=== PATIENT | female | born 1945 | race African-American/Black ===

== ENCOUNTER 2017-01-14 06:21 | Inpatient (IN) | payer OTHER ==
[~2017-01-14] VITALS: Ht 165.1 cm; Wt 97.5 kg
[2017-01-14 06:52] LABS: BASO # 0.1 x10^3/uL (0.0-0.2); BASO % 1 % (0-3); EOS % 1 % (0-3); HEMATOCRIT 38.4 % (36.0-47.0); HEMOGLOBIN 12.2 g/dL (12.0-15.5); LYMPH # 1.9 x10^3/uL (1.0-4.8); LYMPH % 26 % (24-48); MEAN CORPUSCULAR HEMOGLOBIN 23 pg (25-35); MEAN CORPUSCULAR HGB CONC 32 g/dL (31-37); MEAN CORPUSCULAR VOLUME 71 fL (79-100); MONO % 9 % (0-9); NEUT % 63 % (31-73); PLATELET COUNT 248 x10^3/uL (140-400); RED BLOOD COUNT 5.43 x10^6/uL (3.50-5.40); RED CELL DISTRIBUTION WIDTH 15.8 % (11.5-14.5); WHITE BLOOD COUNT 7.1 x10^3/uL (4.0-11.0)
--- NOTE | 2017-01-14 06:57 | PHYS DOC ---
Past Medical History Past Medical History: Diabetes-Type II, Hypertension Past Surgical History: Hysterectomy, Knee Replacement Alcohol Use: None Drug Use: None Adult General Chief Complaint Chief Complaint: LOWER EXT PAIN HPI HPI Patient is a 71 year old female who presents with left leg weakness. Patient reports she has several month history of chronic left leg weakness of uncertain etiology causing her to drag her leg, but she is usually able to ambulate with a cane. This morning she states her leg "gave out" about an hour before she presented here. She fell to the ground on her left side without any head trauma or loss of consciousness, has been unable to bear weight on her left leg since that time. She reports mild chronic left lateral hip pain but not significantly increased since the fall. Now she is unable to bear weight on her left leg, believes the weakness is more severe than usual. She thinks the weakness was at baseline at the time she awoke this morning. She denies any vision changes, facial numbness or droop, upper extremity numbness/weakness, lower extremity numbness. History of diabetes & diabetic neuropathy, denies CAD or CVA. PCP is Dr. Day & she has seen him in the past regarding leg weakness. Review of Systems Review of Systems Constitutional: Denies fever or chills Eyes: Denies change in visual acuity HENT: Denies nasal congestion or sore throat Respiratory: Denies cough or shortness of breath Cardiovascular: Denies chest pain or edema GI: Denies abdominal pain, nausea, vomiting : Denies dysuria Musculoskeletal: Reports chronic L hip pain Integument: Denies rash or skin lesions Neurologic: Denies headache, reports LLE weakness without numbness Current Medications Current Medications Current Medications Medications (Trade) Dose Ordered Sig/Andre Start Time Stop Time Status Last Admin Dose Admin Acetaminophen (Tylenol) 650 mg PRN Q4HRS PRN 01/14/17 08:00 01/15/17 07:59 UNV Morphine Sulfate 2 mg PRN Q2HR PRN 01/14/17 08:00 01/15/17 07:59 UNV Ondansetron HCl (Zofran) 4 mg PRN Q8HRS PRN 01/14/17 08:00 01/15/17 07:59 UNV Allergies Allergies Allergies Coded Allergies Type Severity Reaction Last Updated Verified No Known Drug Allergies 07/25/15 No Physical Exam Physical Exam Constitutional: obese, no acute distress, non-toxic appearance. HENT: Normocephalic, atraumatic, bilateral external ears normal, oropharynx moist, nose normal. Eyes: PERRLA, EOMI, conjunctiva normal, no discharge. Neck: supple, no stridor. Cardiovascular: RRR, no murmurs, no edema. Lungs & Thorax: LCTAB, no wheezing, no respiratory distress. Abdomen: soft, nontender, nondistended. no pulsatile mass. Skin: Warm, dry, no erythema, no rash. Back: No focal bony tenderness. Extremities: L hip, knee, ankle no swelling or deformity, no focal bony tenderness with palpation of hip, knee, ankle. passive ROM intact to hip & knee but has difficulty with active ROM. unable to straight leg raise. dp/pt 2 +, sensation to light touch is intact to foot. RLE normal strength & sensation. Neurologic: Alert and oriented X 3, CN2-12 grossly intact, symmetric strength/ sensation to UE, LE exam as above, intact finger to nose, R heel to L jones intact, unable to demonstrate L heel to R jones. Psychologic: Affect normal, judgement normal, mood normal. Current Patient Data Vital Signs Vital Signs Date Time Temp Pulse Resp B/P Pulse Ox O2 Delivery O2 Flow Rate FiO2 01/14/17 06:23 98.0 91 18 199/104 96 Room Air 98.0 Lab Values Laboratory Tests Test 01/14/17 06:30 White Blood Count 7.1x10^3/uL (4.0-11.0) Red Blood Count 5.43x10^6/uL (3.50-5.40) H Hemoglobin 12.2g/dL (12.0-15.5) Hematocrit 38.4% (36.0-47.0) Mean Corpuscular Volume 71fL (79-100) L Mean Corpuscular Hemoglobin 23pg (25-35) L Mean Corpuscular Hemoglobin Concent 32g/dL (31-37) Red Cell Distribution Width 15.8% (11.5-14.5) H Platelet Count 248x10^3/uL (140-400) Neutrophils (%) (Auto) 63% (31-73) Lymphocytes (%) (Auto) 26% (24-48) Monocytes (%) (Auto) 9% (0-9) Eosinophils (%) (Auto) 1% (0-3) Basophils (%) (Auto) 1% (0-3) Neutrophils # (Auto) 4.5x10^3uL (1.8-7.7) Lymphocytes # (Auto) 1.9x10^3/uL (1.0-4.8) Monocytes # (Auto) 0.6x10^3/uL (0.0-1.1) Eosinophils # (Auto) 0.1x10^3/uL (0.0-0.7) Basophils # (Auto) 0.1x10^3/uL (0.0-0.2) Platelet Estimate Adequate (ADEQUATE) Large Platelets Few Hypochromasia Mod Anisocytosis Slight Microcytosis Mod Prothrombin Time 13.7SEC (11.7-14.0) Prothrombin Time INR 1.1 (0.8-1.1) PTT 26SEC (24-38) Sodium Level 144mmol/L (136-145) Potassium Level 3.4mmol/L (3.5-5.1) L Chloride Level 106mmol/L (98-107) Carbon Dioxide Level 26mmol/L (21-32) Anion Gap 12 (6-14) Blood Urea Nitrogen 11mg/dL (7-20) Creatinine 0.7mg/dL (0.6-1.0) Estimated GFR (Cockcroft-Gault) 100.1 BUN/Creatinine Ratio 16 (6-20) Glucose Level 219mg/dL (70-99) H Calcium Level 9.6mg/dL (8.5-10.1) Total Bilirubin 0.4mg/dL (0.2-1.0) Aspartate Amino Transferase (AST) 22U/L (15-37) Alanine Aminotransferase (ALT) 29U/L (14-59) Alkaline Phosphatase 97U/L (46-116) Troponin I Quantitative < 0.017ng/mL (0.000-0.055) Total Protein 7.7g/dL (6.4-8.2) Albumin 3.6g/dL (3.4-5.0) Albumin/Globulin Ratio 0.9 (1.0-1.7) L Laboratory Tests 01/14/17 06:30 Laboratory Tests 01/14/17 06:30 EKG EKG interpreted by me: NSR rate 78, no acute ST/T wave changes, normal intervals, no ectopy.[] Radiology/Procedures Radiology/Procedures PROCEDURE: HIP LEFT 2V WITH PELVIS Pelvis with left hip, 3 views, 01/14/2017: History: Fall, pain No acute fracture or dislocation is identified. There is mild spurring at the hip joints. There are mild degenerative changes at the symphysis pubis and sacroiliac joints. Scattered vascular calcifications are evident. IMPRESSION: No acute bony abnormality is detected. DICTATED and SIGNED BY: JEANNIE AMEZCUA MD DATE: 01/14/17719 PROCEDURE: HEAD WO CONTRAST CT of the head without contrast, 01/14/2017: History: Left leg weakness The ventricles are within normal limits in size. There is no shift of the midline structures. There is no evidence of acute intracranial hemorrhage or mass effect. Minimal basal ganglia calcifications are present. IMPRESSION: No acute intracranial abnormality is detected. PQRS Compliance Statement: One or more of the following individualized dose reduction techniques were utilized for this examination: 1. Automated exposure control 2. Adjustment of the mA and/or kV according to patient size 3. Use of iterative reconstruction technique DICTATED and SIGNED BY: JEANNIE AMEZCUA MD DATE: 01/14/17717[] Course & Med Decision Making Course & Med Decision Making Pertinent Labs and Imaging studies reviewed. (See chart for details) Patient presents with left lower extremity weakness. She is a poor historian and the time of symptom onset is difficult to elicit, as is the degree of change from her baseline weakness. There certainly are objective findings of weakness on exam. Not activated as code stroke as it is not clear whether this is actually a new finding. However CT of the head was obtained which was without any acute changes. Due to possibly chronic nature of the complaint and uncertain time of onset of symptoms, TPA is not indicated. X-ray shows no evidence of bony abnormality. Consulted with Dr. Shahram Day who agreed to admit the patient due to her inability to bear weight or ambulate independently. Recommends rehabilitation consult to Dr. Price which has been placed. Additionally we'll give aspirin [address] Peters of neurology. Patient agrees with plan, admitted in stable condition. Dragon Disclaimer Dragon Disclaimer This electronic medical record was generated, in whole or in part, using a voice recognition dictation system. Departure Departure Impression: Primary Impression: Lower extremity weakness Additional Impressions: Hyperglycemia Hypertension Disposition: 09 ADMITTED INPATIENT Admitting Physician: Shahram Day Condition: STABLE Referrals: SHAHRAM DAY MD (PCP) Problem Qualifiers DANNY BURNETTE MD Jan 14, 2017 06:57
[2017-01-14 07:17] LABS: INR 1.1 (0.8-1.1); PROTHROMBIN TIME PATIENT 13.7 SEC (11.7-14.0)
--- NOTE | 2017-01-14 07:23 | RAD ---
CT of the head without contrast, 01/14/2017: History: Left leg weakness The ventricles are within normal limits in size. There is no shift of the midline structures. There is no evidence of acute intracranial hemorrhage or mass effect. Minimal basal ganglia calcifications are present. IMPRESSION: No acute intracranial abnormality is detected. PQRS Compliance Statement: One or more of the following individualized dose reduction techniques were utilized for this examination: 1. Automated exposure control 2. Adjustment of the mA and/or kV according to patient size 3. Use of iterative reconstruction technique
--- NOTE | 2017-01-14 07:24 | RAD ---
Pelvis with left hip, 3 views, 01/14/2017: History: Fall, pain No acute fracture or dislocation is identified. There is mild spurring at the hip joints. There are mild degenerative changes at the symphysis pubis and sacroiliac joints. Scattered vascular calcifications are evident. IMPRESSION: No acute bony abnormality is detected.
[2017-01-14 07:43] LABS: CALCIUM 9.6 mg/dL (8.5-10.1); CREATININE 0.7 mg/dL (0.6-1.0); GFR 100.1; POTASSIUM 3.4 mmol/L (3.5-5.1)
[2017-01-14 07:49] LABS: ALBUMIN 3.6 g/dL (3.4-5.0); ALBUMIN/GLOBULIN RATIO 0.9 (1.0-1.7); TOTAL BILIRUBIN 0.4 mg/dL (0.2-1.0); TOTAL PROTEIN 7.7 g/dL (6.4-8.2)
[2017-01-14 07:52] LABS: ANISOCYTOSIS SLIGHT; HYPOCHROMIA MOD; MICROCYTOSIS MOD; PLT ESTIMATE ADEQUATE (ADEQUATE)
[2017-01-14] MEDS ORDERED: MORPHINE SULFATE 2 MG/ML DISP.SYRIN. IV PRN ×2 (08:00→08:45)
[2017-01-14] MEDS ORDERED: ASPIRIN 325 MG TABLET PO ONE (08:00)
[2017-01-14] MEDS ORDERED: ONDANSETRON PF 4 MG/2 ML VIAL. IV PRN ×2 (08:00→08:45)
[2017-01-14] MEDS ORDERED: ACETAMINOPHEN 325 MG TABLET. PO PRN (08:00)
--- NOTE | 2017-01-14 08:04 | EKG ---
[facility] [address] [place] [address] Test Date: 2017-01-14 Test Time: 06:43:27 Pat Name: AMIRAH OSBORNE Department: Room: [facility] Gender: F Water Treatment Operator: : 1945 Requested By: DANNY BURNETTE Order Number: [id number] Reading MD: Nanda Rodriguez Measurements Intervals [place] Rate: 78 P: 48 VT: 186 QRS: -3 QRSD: 84 T: 10 QT: 402 QTc: 462 Interpretive Statements SINUS RHYTHM LEFTWARD AXIS NO SPECIFIC ECG ABNORMALITIES RI6.01 No previous ECG available for comparison Electronically Signed On 01-14-2017 20:59:11 CDT by Nanda Rodriguez
[2017-01-14] MEDS ORDERED: ACETAMINOPHEN 650 MG/20.3 ML SOLUTION. PEG PRN (08:45)
[2017-01-14] MEDS ORDERED: hydrALAZINE 20 MG/ML VIAL. IVP PRN (08:45)
[2017-01-14] MEDS ORDERED: HYDROCODONE/APAP 5/325MG TABLET. PO PRN (08:45)
[2017-01-14] MEDS ORDERED: POTASSIUM CHLORIDE 20 MEQ TABLET.ER. PO ONE (08:45)
[2017-01-14 09:10] VITALS: BP 207/84
--- NOTE | 2017-01-14 09:40 | PDOC ---
Provider Note Provider Note The patient was seen and examined by me. Chart reviewed and plan of care formulated. 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 H&p to follow. D/w patient and family.Advised to lose wt. D/w - possible lumbar spinal stenosis- order MRI of LS spine. SHAHRAM POLO MD Jan 14, 2017 09:40
--- NOTE | 2017-01-14 09:42 | PDOC1 ---
HISTORY AND PHYSICAL Chief Complaint Chief Complaint This 71 year old Amercian female has been admitted with a chief complaint of fall. She reports she was leaving for work and her L leg gave out resulting in fall. The fall was outside in the yard. She developed L hip pain after the fall. She did not impact her head or lose consciousness. In the ED her BP was 199/104 on admission, Xray L hip negative fracture, and CT head negative. Serum potassium was 3.4. ASA 325mg given in ED. Glucose was 209. She is admitted for further evaluation and treatment. Problem List Problems Medical Problems: (1) Hyperglycemia Status: Acute (2) Hypertension Status: Acute (3) Lower extremity weakness Status: Acute (4) Lower extremity weakness Status: Acute Past Medical History Cardiovascular: HTN, Hyperlipidemia GI: Diverticulosis Musculoskeletal: low back pain (DDD ) Endocrine: Diabetes (Type II non insulin control with neuropathy intolerant to gabapentin. ) Past Surgical History Past Surgical History: Total knee replacement, Hysterectomy Past Family History Family History: Cancer (Father - lung. Mother - colon. ), Hypertension (Sister ) Past Social History PSH , with supportive family. Negative tobacco, ETOH or illicit drug use. Review of Symptoms Review of Symptoms A 14 point ROS was completed with the following noted as positive: per HPI Other systems reviewed and negative. Medications Current Medications Acetaminophen (Tylenol) 650 mg PRN Q4HRS PRN PO FEVER; Start 01/14/17 at 08:00 ; Stop 01/14/17 at 08:44; Status DC Acetaminophen (Tylenol) 650 mg PRN Q6HRS PRN PEG MILD PAIN / TEMP; Start at 08:45 Acetaminophen/ Hydrocodone Bitart (Lortab 5/325) 1 tab PRN Q6HRS PRN PO PAIN; Start 01/14/17 at 08:45 Aspirin (Linette Aspirin) 325 mg 1X ONCE PO Last administered on 01/14/17t 08:34 ; Start 01/14/17 at 08:00; Stop 01/14/17 at 08:01; Status DC Aspirin (Children'S Aspirin) 81 mg DAILYWBKFT PO ; Start 01/15/17 at 08:00 Hydralazine HCl (Apresoline) 10 mg PRN Q4HRS PRN IVP ELEVATED BP, SEE COMMENTS ; Start 01/14/17 at 08:45 Morphine Sulfate 2 mg PRN Q2HR PRN IV PAIN; Start 01/14/17 at 08:00; Stop 01/14 at 08:44; Status DC Morphine Sulfate 2 mg PRN Q2HR PRN IV PAIN; Start 01/14/17 at 08:45 Ondansetron HCl (Zofran) 4 mg PRN Q8HRS PRN IV NAUSEA/VOMITING; Start 01/14/17 at 08:00; Stop 01/14/17 at 08:44; Status DC Ondansetron HCl (Zofran) 4 mg PRN Q8HRS PRN IV NAUSEA/VOMITING; Start 01/14/17 at 08:45 Potassium Chloride (Klor-Con) 20 meq 1X ONCE PO ; Start 01/14/17 at 08:45; Stop 01/14/17 at 08:46; Status DC Allergy Allergies Coded Allergies Type Severity Reaction Last Updated Verified No Known Drug Allergies 07/25/15 No Physical Exam Physical Exam General appearance - alert,well appearing, and in no distress Mental Status - alert, oriented to person, place, and time, affect appropriate to mood Head - normal Chest - clear to auscultation, no wheezes, rales or rhonchi, symmetric air entry Heart - S1 and S2 normal Abdomen - soft, nontender, nondistended, no masses or organomegaly Neurological -no acute focal neurological deficit noted. Musculoskeletal - tender lumbar spine and L hip Extremities - no pedal edema Skin - warm and dry VTE Prophylaxis Ordered VTE Prophylaxis Devices: Yes VTE Pharmacological Prophylaxi: No Assessment Labs Laboratory Tests Test 01/14/17 06:30 White Blood Count 7.1x10^3/uL (4.0-11.0) Red Blood Count 5.43x10^6/uL (3.50-5.40) Hemoglobin 12.2g/dL (12.0-15.5) Hematocrit 38.4% (36.0-47.0) Mean Corpuscular Volume 71fL (79-100) Mean Corpuscular Hemoglobin 23pg (25-35) Mean Corpuscular Hemoglobin Concent 32g/dL (31-37) Red Cell Distribution Width 15.8% (11.5-14.5) Platelet Count 248x10^3/uL (140-400) Neutrophils (%) (Auto) 63% (31-73) Lymphocytes (%) (Auto) 26% (24-48) Monocytes (%) (Auto) 9% (0-9) Eosinophils (%) (Auto) 1% (0-3) Basophils (%) (Auto) 1% (0-3) Neutrophils # (Auto) 4.5x10^3uL (1.8-7.7) Lymphocytes # (Auto) 1.9x10^3/uL (1.0-4.8) Monocytes # (Auto) 0.6x10^3/uL (0.0-1.1) Eosinophils # (Auto) 0.1x10^3/uL (0.0-0.7) Basophils # (Auto) 0.1x10^3/uL (0.0-0.2) Platelet Estimate Adequate (ADEQUATE) Large Platelets Few Hypochromasia Mod Anisocytosis Slight Microcytosis Mod Prothrombin Time 13.7SEC (11.7-14.0) Prothromb Time International Ratio 1.1 (0.8-1.1) Activated Partial Thromboplast Time 26SEC (24-38) Sodium Level 144mmol/L (136-145) Potassium Level 3.4mmol/L (3.5-5.1) Chloride Level 106mmol/L (98-107) Carbon Dioxide Level 26mmol/L (21-32) Anion Gap 12 (6-14) Blood Urea Nitrogen 11mg/dL (7-20) Creatinine 0.7mg/dL (0.6-1.0) Estimated GFR (Cockcroft-Gault) 100.1 BUN/Creatinine Ratio 16 (6-20) Glucose Level 219mg/dL (70-99) Calcium Level 9.6mg/dL (8.5-10.1) Total Bilirubin 0.4mg/dL (0.2-1.0) Aspartate Amino Transf (AST/SGOT) 22U/L (15-37) Alanine Aminotransferase (ALT/SGPT) 29U/L (14-59) Alkaline Phosphatase 97U/L (46-116) Troponin I Quantitative < 0.017ng/mL (0.000-0.055) Total Protein 7.7g/dL (6.4-8.2) Albumin 3.6g/dL (3.4-5.0) Albumin/Globulin Ratio 0.9 (1.0-1.7) Laboratory Tests Test 01/14/17 06:30 White Blood Count 7.1x10^3/uL (4.0-11.0) Red Blood Count 5.43x10^6/uL (3.50-5.40) Hemoglobin 12.2g/dL (12.0-15.5) Hematocrit 38.4% (36.0-47.0) Mean Corpuscular Volume 71fL (79-100) Mean Corpuscular Hemoglobin 23pg (25-35) Mean Corpuscular Hemoglobin Concent 32g/dL (31-37) Red Cell Distribution Width 15.8% (11.5-14.5) Platelet Count 248x10^3/uL (140-400) Neutrophils (%) (Auto) 63% (31-73) Lymphocytes (%) (Auto) 26% (24-48) Monocytes (%) (Auto) 9% (0-9) Eosinophils (%) (Auto) 1% (0-3) Basophils (%) (Auto) 1% (0-3) Neutrophils # (Auto) 4.5x10^3uL (1.8-7.7) Lymphocytes # (Auto) 1.9x10^3/uL (1.0-4.8) Monocytes # (Auto) 0.6x10^3/uL (0.0-1.1) Eosinophils # (Auto) 0.1x10^3/uL (0.0-0.7) Basophils # (Auto) 0.1x10^3/uL (0.0-0.2) Platelet Estimate Adequate (ADEQUATE) Large Platelets Few Hypochromasia Mod Anisocytosis Slight Microcytosis Mod Prothrombin Time 13.7SEC (11.7-14.0) Prothromb Time International Ratio 1.1 (0.8-1.1) Activated Partial Thromboplast Time 26SEC (24-38) Sodium Level 144mmol/L (136-145) Potassium Level 3.4mmol/L (3.5-5.1) Chloride Level 106mmol/L (98-107) Carbon Dioxide Level 26mmol/L (21-32) Anion Gap 12 (6-14) Blood Urea Nitrogen 11mg/dL (7-20) Creatinine 0.7mg/dL (0.6-1.0) Estimated GFR (Cockcroft-Gault) 100.1 BUN/Creatinine Ratio 16 (6-20) Glucose Level 219mg/dL (70-99) Calcium Level 9.6mg/dL (8.5-10.1) Total Bilirubin 0.4mg/dL (0.2-1.0) Aspartate Amino Transf (AST/SGOT) 22U/L (15-37) Alanine Aminotransferase (ALT/SGPT) 29U/L (14-59) Alkaline Phosphatase 97U/L (46-116) Troponin I Quantitative < 0.017ng/mL (0.000-0.055) Total Protein 7.7g/dL (6.4-8.2) Albumin 3.6g/dL (3.4-5.0) Albumin/Globulin Ratio 0.9 (1.0-1.7) Plan Plan IMPRESSION: 1. L hip pain post fall on home property 2. L lower leg instability with ambulation 3. malignant HTN 4. 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 diverticulosis 7. hypokalemia PLAN: LLE weakness/instability neuro consult Dr. Price consult PT OT CT head negative malignant HTN resume home meds Hydralazine 10mg IV prn SBP >180 HTN + DM =begin ASA 81mg daily L Hip pain post falll XR L hip negative Dr. Price consult L knee instability-?MRI? hypokalemia Admit 3.4 KCL 20meq 01/14 recheck 01/15 DM II with hyperglycemia/neuropathy FSBS/SSI low intensity continue metformin hyperlipidemia on statin DVT/GI prophylaxis SCD/COLLEEN Pepcid For more details regarding further plans, please refer to the orders. BRENDA RANDOLPH APRN Jan 14, 2017 09:42
[2017-01-14 09:49] VITALS: BP 207/84
[2017-01-14] MEDS: CHOLECALCIFEROL (VITAMIN D3) 1,000 UNIT TABLET PO SCH (10:07)
[2017-01-14] MEDS: METOPROLOL TART IMMED RELEASE 50 MG TABLET PO SCH ×2 (10:07→20:46)
[2017-01-14] MEDS: METFORMIN 500 MG TABLET. PO SCH ×2 (10:07→17:51)
[2017-01-14] MEDS: FAMOTIDINE 20 MG TABLET. PO SCH ×2 (10:07→20:46)
[2017-01-14] MEDS: INSULIN ASPART 300 UNITS/3 ML INSULN.PEN SQ SCH ×2 (11:30→16:30)
[2017-01-14] MEDS ORDERED: METO100T2 PO (12:56)
[2017-01-14] MEDS ORDERED: CHOL10003 PO (12:56)
[2017-01-14] MEDS ORDERED: MULT1TAB52 PO (12:56)
[2017-01-14] MEDS ORDERED: CETI10TA22 PO (12:56)
[2017-01-14] MEDS ORDERED: HYDR-2762 PO (12:56)
[2017-01-14] MEDS ORDERED: METF500T4 PO (12:56)
--- NOTE | 2017-01-14 13:02 | CONS ---
DATE OF CONSULTATION: 01/14/2017 ATTENDING PHYSICIAN: Dr. Haile Day. The patient was seen at the request of Dr. Day for rehab evaluation. HISTORY OF PRESENT ILLNESS: This is a 71-year-old female with left lower extremity weakness of sudden onset this morning made her fall. She admits some lower back pain. She admits numbness in her left lower extremity. She denies any trouble with her bowel or bladder control. She had episode like this about 2 months ago, but it got better. The patient with diabetes mellitus with associated peripheral neuropathy, not known allergic to any medication. She lives with her in a [place], [place]. Home had two steps from the front without railing. No steps from the back. The patient is status post right total knee arthroplasty in the past. PHYSICAL EXAMINATION: Today revealed an elderly female, she is alert, oriented to time, place, person and circumstance and follows commands appropriately, moves all 4 extremities voluntarily where she had overall 4+/5 grade muscle strength with relatively increased weakness in left hip flexor and minimal degree over left foot dorsiflexor. Left hip flexor being 2-/5 grade left foot dorsiflexor, 4+/5 grade. In other extremity muscles, she had 4+/5 to 5/5 grade muscle strength. Deep tendon reflexes are 1 to 2+ and symmetrical with absent right ankle jerk. She had decreased touch and pinprick sensation over left L3-L4 dermatome area. Negative Tinel sign over lateral femoral cutaneous nerve at the inguinal ligament area. She had pain free range of motion on both hip and knee joints. She had a crepitus on range of motion of left knee joint without any obvious pain, mild left knee joint effusion. She had tenderness to palpation over sacroiliac joint area bilaterally. Straight leg raising test is negative bilaterally. She is independent with bed mobility. I have not tested her transfer or ambulation skills at present time. Her skin is intact at this time. ASSESSMENT: An elderly female with degenerative disk disease of lumbar vertebrae with left L3 radiculopathy, degenerative joint disease of left knee without much pain, diabetes mellitus with peripheral neuropathy, hypertension under control with medication, status post right total knee arthroplasty without any problems. RECOMMENDATIONS: To obtain MRI scan of her lumbar vertebrae to confirm her disk problem, to consider neurosurgical consultation if there is no disk problems, left hip flexor muscle weakness might be from diabetic . Dr. Day, I appreciate asking me to participate in the care of this interesting patient. I will be glad to follow her with you as needed for her rehabilitation. TORRES FARRELL MD DR: MIKE/nataly JOB#: [id number] / [id number]
--- NOTE | 2017-01-14 14:09 | RAD ---
PROCEDURE MRI brain without contrast. HISTORY Left-sided weakness for 6 months. TECHNIQUE Sagittal T1, axial T1, axial T2, axial FLAIR, axial T2 gradient, coronal T2, and diffusion imaging with ADC map were performed. Sequences were repeated for motion, study is still mildly degraded by motion. COMPARISON None provided. FINDINGS The ventricles and sulci are within normal limits for age. FLAIR hyperintensities in the supratentorial white matter appear randomly distributed. They are nonspecific, most commonly secondary to minimal small vessel ischemic disease. There is no acute intracranial hemorrhage or extra-axial fluid collection. There is no mass effect or midline shift. There is no restricted diffusion to suggest an acute infarct. Cervicomedullary junction is unremarkable. Intracranial flow voids are preserved. Paranasal sinuses and mastoid air cells are clear. IMPRESSION No acute intracranial findings. Brain parenchymal volume loss and minimal probable small-vessel ischemic disease. Electronically signed by: Emmett Amado MD (Jan 14, 2017 14:07:22)
[2017-01-14 15:00] VITALS: BP 135/69
--- NOTE | 2017-01-14 15:11 | RAD ---
PROCEDURE MRI lumbar spine without contrast. HISTORY Left-sided weakness for 6 months. Left leg giving out. TECHNIQUE Sagittal T1, sagittal T2, sagittal STIR, axial T1, and axial T2 sequences are provided. There is mild motion degradation. COMPARISON None. FINDINGS There is no malalignment. There is minimal endplate edema at T11-T12. There is narrowing of disc height at T11-T12. There is no worrisome marrow lesion. There is diffuse disc desiccation. The conus medullaris is normal in signal intensity and in position. Minimal subcutaneous edema is noted. The numbering system assumes 5 lumbar type vertebral bodies. Findings by individual level are as follows: T11-T12: There is a disc osteophyte complex and there is moderate facet hypertrophy. There is ligamentum flavum hypertrophy. There is severe circumferential narrowing of the spinal canal, narrowed down to 6 millimeters AP. There is cord hyperintensity and cord flattening. There is lateral recess narrowing, high-grade. Foraminal narrowing appears high-grade as well. T12-L1: There is no canal or foraminal compromise. L1-L2: Minimal disc bulge and minimal facet hypertrophy are noted without canal or foraminal compromise. L2-L3: Minimal disc bulge and minimal facet hypertrophy are noted without canal or foraminal compromise. L3-L4: Mild disc bulge and facet and ligamentum flavum hypertrophy are noted. There is mildly prominent epidural fat. There is no canal stenosis. There is minimal right foraminal narrowing. L4-L5: Disc bulge and [id number] facet hypertrophy are noted. There is fluid in the right facet joint. Midline AP diameter of the thecal sac is narrowed to 9-10 millimeters, minimal. There is also mild lateral recess narrowing, greater on the right. Foraminal narrowing is is minimal. L5-S1: Disc bulge and facet hypertrophy are noted without canal stenosis. There is mild right and minimal left foraminal narrowing. IMPRESSION 1. 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 Cord hyperintensity may represent edema or myelomalacia. 2. Mild degenerative disc disease and facet and ligamentum flavum hypertrophy are noted in the lumbar spine, as described above. Electronically signed by: Emmett Amado MD (Jan 14, 2017 15:09:24)
[2017-01-14 15:54] LABS: BILIRUBIN,URINE NEGATIVE (NEG); GLUCOSE,URINE 100 mg/dL (NEG); NITRITE,URINE NEGATIVE (NEG); PH,URINE 6.5; PROTEIN,URINE NEGATIVE (NEG-TRACE); UROBILINOGEN,URINE 0.2 mg/dL (0.2 mg/dL)
[2017-01-14 16:08] LABS: BACTERIA,URINE 0 /HPF (0-FEW); SQUAMOUS EPITHELIAL CELL,UR FEW /LPF; WBC,URINE 0 /HPF (0-4)
--- NOTE | 2017-01-14 18:43 | PDOC2 ---
NEUROLOGY CONSULT Date of Admission Date of Admission DATE: 01/14/17 TIME: 18:26 Reason for Consult Reason for Consult: IMPRESSION: Left LE weakness x 1 week. Left leg pain. 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 Degenerative spine and disc disease. DM HTN HLD Diverticulosis. Obesity Falls. No evidence of acute CVA this time. RECOMMENDATIONS/PLAN: L-spine MRI, performed. Neurontin 100 mg tid with titration up. Decadron for short use, the per NS. Treat underlying medical diseases. OT/PT. HISTORY OF THE PRESENT ILLNESS: 71-y-old AA female patient with above medical diseases developed symptoms of weakness in her left LE for about 1 week. Her weakness progress and she was eventually unable to mobile. She also has symptoms of pain in lateral aspect of her left LE from hip down to knee. No symptoms of urinary or bowel dysfunction. Her UE and cranial nerves were not involved. PAST MEDICAL HISTORY: Please see above. PAST SURGERY HISTORY: Hysterectomy, Knee surgery ALLERGY: Reviewed. MEDICATIONS: Refer to [facility] FAMILY HISTORY: Her mother had colon cancer. Her father had lung cancer. SOCIAL HISTORY: Lives at home. Denies current smoking, drinking, and illicit drug use. REVIEW OF SYSTEMS: Constitutional: No malnutrition, weight loss, cachexia. Head: No traumatic brain or head injury. Skin: No edema, or rash. Ear: No infection. Eyes: No vision loss or color blindness. Nose: No bleeding or purulent discharges. Hearing: No hearing decrease. Neck: Pain. Breast: No history of cancer, masses,or discharges. Cardiac: HTN, HLD. Pulmonary: No COPD. GI: No GI ulcer, GI bleeding. Urinary/genital: UTI. Endocrinologic: Diabetes Mellitus, obesity. Skeletomuscular: No muscular atrophy, deformity.. Neurological: see HP. Psychiatric: Denies drug use/abuse. Otherwise, not -yfgas review of systems. PHYSICAL EXAMINATION: General appearance is in subacute distress. HEENT: Normocephalic and nontraumatic. Eyes, nose, ears, and throat are unremarkable. Neck is supple. No lymphadenopathy. No bruits are heard over the carotid artery. No crepitus. Cardiovascular: S1, S2, regular rate and rhythm. Pulmonary: Clear to auscultation bilaterally. Abdomen: Bowel sounds are positive. Abdomen is soft, nontender, and nondistended. Extremities: No rash, lesions, or edema. Restriction of range of motion in left LE. NEUROLOGICAL EXAMINATION: Alert Oriented to time, place and person. PERRL. EOMI. CN: no focal findings. Muscle tone: within normal. Muscle strength: 5 right UE and lE and left UE, 2-3 left LE. DTR: 2- UE, 1 at knee. Plantar reflex: Flexor response bilaterally Gait: Unable to walk. Sensory exam: subjective pain at left LE when touch. No obvious cerebellar signs elicited. F-T-N test fine. Current Medications Current Medications Current Medications Ondansetron HCl (Zofran) 4 mg PRN Q8HRS PRN IV NAUSEA/VOMITING; Start 01/14/17 at 08:00; Stop 01/14/17 at 08:44; Status DC Morphine Sulfate 2 mg PRN Q2HR PRN IV PAIN; Start 01/14/17 at 08:00; Stop 01/14 at 08:44; Status DC Acetaminophen (Tylenol) 650 mg PRN Q4HRS PRN PO FEVER; Start 01/14/17 at 08:00 ; Stop 01/14/17 at 08:44; Status DC Aspirin (Linette Aspirin) 325 mg 1X ONCE PO Last administered on 01/14/17 08:34 ; Start 01/14/17 at 08:00; Stop 01/14/17 at 08:01; Status DC Morphine Sulfate 2 mg PRN Q2HR PRN IV PAIN; Start 01/14/17 at 08:45 Ondansetron HCl (Zofran) 4 mg PRN Q8HRS PRN IV NAUSEA/VOMITING; Start 01/14/17 at 08:45 Acetaminophen/ Hydrocodone Bitart (Lortab 5/325) 1 tab PRN Q6HRS PRN PO PAIN; Start 01/14/17 at 08:45; Stop 01/14/17 at 09:26; Status DC Acetaminophen (Tylenol) 650 mg PRN Q6HRS PRN PEG MILD PAIN / TEMP; Start at 08:45 Aspirin (Children'S Aspirin) 81 mg DAILYWBKFT PO ; Start 01/15/17 at 08:00 Potassium Chloride (Klor-Con) 20 meq 1X ONCE PO Last administered on 10:06; Start 01/14/17 at 08:45; Stop 01/14/17 at 08:46; Status DC Hydralazine HCl (Apresoline) 10 mg PRN Q4HRS PRN IVP ELEVATED BP, SEE COMMENTS Last administered on 01/14/17 09:31; Start 01/14/17 at 08:45 Metformin HCl (Glucophage) 500 mg BIDWMEALS PO Last administered on 01/14/17 17:51; Start 01/14/17 at 10:00 Metoprolol Tartrate (Lopressor) 100 mg BID PO Last administered on 01/14/17 10 :07; Start 01/14/17 at 10:00 Vitamin D (Vitamin D3) 1,000 unit DAILY PO Last administered on 01/14/17 10:07 ; Start 01/14/17 at 10:00 Cetirizine HCl (Zyrtec) 10 mg HS PO ; Start 01/14/17 at 21:00 Acetaminophen/ Hydrocodone Bitart (Lortab 7.5/325) 1 tab PRN Q6HRS PRN PO PAIN ; Start 01/14/17 at 09:30 Insulin Aspart (Novolog) TIDAC SQ ; Start 01/14/17 at 11:30 Famotidine (Pepcid) 20 mg BID PO Last administered on 01/14/17 10:07; Start at 10:00 Active Scripts Active Reported Zyrtec (Cetirizine Hcl) 10 Mg Tablet 10 Mg PO HS Vitamin D3 (Cholecalciferol (Vitamin D3)) 1,000 Unit Tablet 1 Tab PO DAILY Metoprolol Tartrate 100 Mg Tablet 200 Mg PO BID Metformin Hcl 500 Mg Tablet 500 Mg PO BIDWMEALS Hydrocodone-Apap 7.5-325 (Hydrocodone Bit/Acetaminophen) 1 Each Tablet 1 Tab PO PRN Q6HRS PRN Multivitamins (Multivitamin) 1 Each Tablet 1 Tab PO DAILY Allergies Allergies: Coded Allergies: No Known Drug Allergies (Unverified , 07/25/15) Vitals VITALS Vital Signs Date Time Temp Pulse Resp B/P Pulse Ox O2 Delivery O2 Flow Rate FiO2 01/14/17 15:00 98.3 68 18 135/69 94 Room Air 98.3 Labs Labs Laboratory Tests Test 01/14/17 06:30 01/14/17 11:33 01/14/17 15:30 01/14/17 17:57 White Blood Count 7.1x10^3/uL (4.0-11.0) Red Blood Count 5.43x10^6/uL (3.50-5.40) Hemoglobin 12.2g/dL (12.0-15.5) Hematocrit 38.4% (36.0-47.0) Mean Corpuscular Volume 71fL (79-100) Mean Corpuscular Hemoglobin 23pg (25-35) Mean Corpuscular Hemoglobin Concent 32g/dL (31-37) Red Cell Distribution Width 15.8% (11.5-14.5) Platelet Count 248x10^3/uL (140-400) Neutrophils (%) (Auto) 63% (31-73) Lymphocytes (%) (Auto) 26% (24-48) Monocytes (%) (Auto) 9% (0-9) Eosinophils (%) (Auto) 1% (0-3) Basophils (%) (Auto) 1% (0-3) Neutrophils # (Auto) 4.5x10^3uL (1.8-7.7) Lymphocytes # (Auto) 1.9x10^3/uL (1.0-4.8) Monocytes # (Auto) 0.6x10^3/uL (0.0-1.1) Eosinophils # (Auto) 0.1x10^3/uL (0.0-0.7) Basophils # (Auto) 0.1x10^3/uL (0.0-0.2) Platelet Estimate Adequate (ADEQUATE) Large Platelets Few Hypochromasia Mod Anisocytosis Slight Microcytosis Mod Prothrombin Time 13.7SEC (11.7-14.0) Prothromb Time International Ratio 1.1 (0.8-1.1) Activated Partial Thromboplast Time 26SEC (24-38) Sodium Level 144mmol/L (136-145) Potassium Level 3.4mmol/L (3.5-5.1) Chloride Level 106mmol/L (98-107) Carbon Dioxide Level 26mmol/L (21-32) Anion Gap 12 (6-14) Blood Urea Nitrogen 11mg/dL (7-20) Creatinine 0.7mg/dL (0.6-1.0) Estimated GFR (Cockcroft-Gault) 100.1 BUN/Creatinine Ratio 16 (6-20) Glucose Level 219mg/dL (70-99) Calcium Level 9.6mg/dL (8.5-10.1) Total Bilirubin 0.4mg/dL (0.2-1.0) Aspartate Amino Transf (AST/SGOT) 22U/L (15-37) Alanine Aminotransferase (ALT/SGPT) 29U/L (14-59) Alkaline Phosphatase 97U/L (46-116) Troponin I Quantitative < 0.017ng/mL (0.000-0.055) Total Protein 7.7g/dL (6.4-8.2) Albumin 3.6g/dL (3.4-5.0) Albumin/Globulin Ratio 0.9 (1.0-1.7) Glucose (Fingerstick) 176mg/dL (70-99) 151mg/dL (70-99) Urine Collection Type Unknown Urine Color Yellow Urine Clarity Clear Urine pH 6.5 Urine Specific [place] 1.015 Urine Protein Negativemg/dL (NEG-TRACE) Urine Glucose (UA) 100mg/dL (NEG) Urine Ketones (Stick) Negativemg/dL (NEG) Urine Blood Negative (NEG) Urine Nitrite Negative (NEG) Urine Bilirubin Negative (NEG) Urine Urobilinogen Dipstick 0.2mg/dL (0.2 mg/dL) Urine Leukocyte Esterase Negative (NEG) Urine RBC 1-2/HPF (0-2) Urine WBC 0/HPF (0-4) Urine Squamous Epithelial Cells Few/LPF Urine Bacteria 0/HPF (0-FEW) Urine Mucus Slight/LPF Laboratory Tests Test 01/14/17 06:30 01/14/17 11:33 01/14/17 15:30 01/14/17 17:57 White Blood Count 7.1x10^3/uL (4.0-11.0) Red Blood Count 5.43x10^6/uL (3.50-5.40) Hemoglobin 12.2g/dL (12.0-15.5) Hematocrit 38.4% (36.0-47.0) Mean Corpuscular Volume 71fL (79-100) Mean Corpuscular Hemoglobin 23pg (25-35) Mean Corpuscular Hemoglobin Concent 32g/dL (31-37) Red Cell Distribution Width 15.8% (11.5-14.5) Platelet Count 248x10^3/uL (140-400) Neutrophils (%) (Auto) 63% (31-73) Lymphocytes (%) (Auto) 26% (24-48) Monocytes (%) (Auto) 9% (0-9) Eosinophils (%) (Auto) 1% (0-3) Basophils (%) (Auto) 1% (0-3) Neutrophils # (Auto) 4.5x10^3uL (1.8-7.7) Lymphocytes # (Auto) 1.9x10^3/uL (1.0-4.8) Monocytes # (Auto) 0.6x10^3/uL (0.0-1.1) Eosinophils # (Auto) 0.1x10^3/uL (0.0-0.7) Basophils # (Auto) 0.1x10^3/uL (0.0-0.2) Platelet Estimate Adequate (ADEQUATE) Large Platelets Few Hypochromasia Mod Anisocytosis Slight Microcytosis Mod Prothrombin Time 13.7SEC (11.7-14.0) Prothromb Time International Ratio 1.1 (0.8-1.1) Activated Partial Thromboplast Time 26SEC (24-38) Sodium Level 144mmol/L (136-145) Potassium Level 3.4mmol/L (3.5-5.1) Chloride Level 106mmol/L (98-107) Carbon Dioxide Level 26mmol/L (21-32) Anion Gap 12 (6-14) Blood Urea Nitrogen 11mg/dL (7-20) Creatinine 0.7mg/dL (0.6-1.0) Estimated GFR (Cockcroft-Gault) 100.1 BUN/Creatinine Ratio 16 (6-20) Glucose Level 219mg/dL (70-99) Calcium Level 9.6mg/dL (8.5-10.1) Total Bilirubin 0.4mg/dL (0.2-1.0) Aspartate Amino Transf (AST/SGOT) 22U/L (15-37) Alanine Aminotransferase (ALT/SGPT) 29U/L (14-59) Alkaline Phosphatase 97U/L (46-116) Troponin I Quantitative < 0.017ng/mL (0.000-0.055) Total Protein 7.7g/dL (6.4-8.2) Albumin 3.6g/dL (3.4-5.0) Albumin/Globulin Ratio 0.9 (1.0-1.7) Glucose (Fingerstick) 176mg/dL (70-99) 151mg/dL (70-99) Urine Collection Type Unknown Urine Color Yellow Urine Clarity Clear Urine pH 6.5 Urine Specific [place] 1.015 Urine Protein Negativemg/dL (NEG-TRACE) Urine Glucose (UA) 100mg/dL (NEG) Urine Ketones (Stick) Negativemg/dL (NEG) Urine Blood Negative (NEG) Urine Nitrite Negative (NEG) Urine Bilirubin Negative (NEG) Urine Urobilinogen Dipstick 0.2mg/dL (0.2 mg/dL) Urine Leukocyte Esterase Negative (NEG) Urine RBC 1-2/HPF (0-2) Urine WBC 0/HPF (0-4) Urine Squamous Epithelial Cells Few/LPF Urine Bacteria 0/HPF (0-FEW) Urine Mucus Slight/LPF GLORIA WERNER MD Jan 14, 2017 18:43
[2017-01-14 19:35] VITALS: BP 194/82
[2017-01-14] MEDS: GABAPENTIN 100 MG CAPSULE. PO SCH (20:45)
[2017-01-14] MEDS: CETIRIZINE HCL 10 MG TABLET. PO SCH (20:46)
[2017-01-14] MEDS: DEXAMETHASONE SOD PHOS 4 MG/ML VIAL IV SCH (20:47)
[2017-01-14 23:35] VITALS: BP 157/72
[2017-01-15] MEDS: DEXAMETHASONE SOD PHOS 4 MG/ML VIAL IV SCH ×4 (02:09→18:30)
[2017-01-15 03:35] VITALS: BP 164/71
[2017-01-15 04:42] LABS: CALCIUM 9.7 mg/dL (8.5-10.1); CREATININE 0.7 mg/dL (0.6-1.0); GFR 100.1; MAGNESIUM 1.6 mg/dL (1.8-2.4); POTASSIUM 4.2 mmol/L (3.5-5.1)
[2017-01-15 04:55] LABS: BASO # 0.1 x10^3/uL (0.0-0.2); BASO % 1 % (0-3); EOS % 0 % (0-3); HEMATOCRIT 39.2 % (36.0-47.0); HEMOGLOBIN 12.4 g/dL (12.0-15.5); LYMPH % 10 % (24-48); MEAN CORPUSCULAR HEMOGLOBIN 22 pg (25-35); MEAN CORPUSCULAR HGB CONC 32 g/dL (31-37); MEAN CORPUSCULAR VOLUME 70 fL (79-100); MONO % 1 % (0-9); NEUT % 89 % (31-73); PLATELET COUNT 276 x10^3/uL (140-400); RED BLOOD COUNT 5.61 x10^6/uL (3.50-5.40); RED CELL DISTRIBUTION WIDTH 15.5 % (11.5-14.5); WHITE BLOOD COUNT 9.6 x10^3/uL (4.0-11.0)
[2017-01-15 07:00] VITALS: BP 165/74
[2017-01-15 07:35] LABS: PLT ESTIMATE ADEQUATE (ADEQUATE)
[2017-01-15] MEDS ORDERED: ASPIRIN 81 MG TAB.CHEW PO SCH (08:00)
[2017-01-15] MEDS: METFORMIN 500 MG TABLET. PO SCH ×2 (08:27→17:12)
[2017-01-15] MEDS: CHOLECALCIFEROL (VITAMIN D3) 1,000 UNIT TABLET PO SCH (08:27)
[2017-01-15] MEDS: FAMOTIDINE 20 MG TABLET. PO SCH ×2 (08:27→21:39)
[2017-01-15] MEDS: GABAPENTIN 100 MG CAPSULE. PO SCH ×4 (08:27→21:39)
[2017-01-15] MEDS: METOPROLOL TART IMMED RELEASE 50 MG TABLET PO SCH ×2 (08:28→21:40)
[2017-01-15] MEDS: INSULIN ASPART 300 UNITS/3 ML INSULN.PEN SQ SCH ×3 (08:45→18:36)
--- NOTE | 2017-01-15 10:11 | PDOC ---
PROGRESS NOTES Subjective Subjective No new complaints. Objective Objective Vital Signs Date Time Temp Pulse Resp B/P Pulse Ox O2 Delivery O2 Flow Rate FiO2 01/15/17 08:28 70 165/74 01/15/17 08:00 Room Air 01/15/17 07:00 97.9 18 96 97.9 Intake and Output 01/15/17 07:00 Intake Total 300 ml Output Total 750 ml Balance -450 ml Intake Oral 300 ml Output Urine Total 750 ml # Voids 1 Physical Exam Physical Exam She continues with left hip flexor muscle weakness and numbness left thigh anterior aspect. Mri scan revealed T11-T12 spinal stenosis. Assessment Assessment Problems Medical Problems: (1) Hyperglycemia Status: Acute (2) Hypertension Status: Acute (3) Lower extremity weakness Status: Acute (4) Lower extremity weakness Status: Acute Plan Plan of Care To await neurosurgical advise. Comment Review of Relevant I have reviewed the following items alberto (where applicable) has been applied. Labs Laboratory Tests Test 01/14/17 06:30 01/14/17 11:33 01/14/17 15:30 01/14/17 17:57 White Blood Count 7.1x10^3/uL (4.0-11.0) Red Blood Count 5.43x10^6/uL (3.50-5.40) Hemoglobin 12.2g/dL (12.0-15.5) Hematocrit 38.4% (36.0-47.0) Mean Corpuscular Volume 71fL (79-100) Mean Corpuscular Hemoglobin 23pg (25-35) Mean Corpuscular Hemoglobin Concent 32g/dL (31-37) Red Cell Distribution Width 15.8% (11.5-14.5) Platelet Count 248x10^3/uL (140-400) Neutrophils (%) (Auto) 63% (31-73) Lymphocytes (%) (Auto) 26% (24-48) Monocytes (%) (Auto) 9% (0-9) Eosinophils (%) (Auto) 1% (0-3) Basophils (%) (Auto) 1% (0-3) Neutrophils # (Auto) 4.5x10^3uL (1.8-7.7) Lymphocytes # (Auto) 1.9x10^3/uL (1.0-4.8) Monocytes # (Auto) 0.6x10^3/uL (0.0-1.1) Eosinophils # (Auto) 0.1x10^3/uL (0.0-0.7) Basophils # (Auto) 0.1x10^3/uL (0.0-0.2) Platelet Estimate Adequate (ADEQUATE) Large Platelets Few Hypochromasia Mod Anisocytosis Slight Microcytosis Mod Prothrombin Time 13.7SEC (11.7-14.0) Prothromb Time International Ratio 1.1 (0.8-1.1) Activated Partial Thromboplast Time 26SEC (24-38) Sodium Level 144mmol/L (136-145) Potassium Level 3.4mmol/L (3.5-5.1) Chloride Level 106mmol/L (98-107) Carbon Dioxide Level 26mmol/L (21-32) Anion Gap 12 (6-14) Blood Urea Nitrogen 11mg/dL (7-20) Creatinine 0.7mg/dL (0.6-1.0) Estimated GFR (Cockcroft-Gault) 100.1 BUN/Creatinine Ratio 16 (6-20) Glucose Level 219mg/dL (70-99) Calcium Level 9.6mg/dL (8.5-10.1) Total Bilirubin 0.4mg/dL (0.2-1.0) Aspartate Amino Transf (AST/SGOT) 22U/L (15-37) Alanine Aminotransferase (ALT/SGPT) 29U/L (14-59) Alkaline Phosphatase 97U/L (46-116) Troponin I Quantitative < 0.017ng/mL (0.000-0.055) Total Protein 7.7g/dL (6.4-8.2) Albumin 3.6g/dL (3.4-5.0) Albumin/Globulin Ratio 0.9 (1.0-1.7) Glucose (Fingerstick) 176mg/dL (70-99) 151mg/dL (70-99) Urine Collection Type Unknown Urine Color Yellow Urine Clarity Clear Urine pH 6.5 Urine Specific [place] 1.015 Urine Protein Negativemg/dL (NEG-TRACE) Urine Glucose (UA) 100mg/dL (NEG) Urine Ketones (Stick) Negativemg/dL (NEG) Urine Blood Negative (NEG) Urine Nitrite Negative (NEG) Urine Bilirubin Negative (NEG) Urine Urobilinogen Dipstick 0.2mg/dL (0.2 mg/dL) Urine Leukocyte Esterase Negative (NEG) Urine RBC 1-2/HPF (0-2) Urine WBC 0/HPF (0-4) Urine Squamous Epithelial Cells Few/LPF Urine Bacteria 0/HPF (0-FEW) Urine Mucus Slight/LPF Test 01/14/17 20:47 01/15/17 04:16 01/15/17 07:32 Glucose (Fingerstick) 166mg/dL (70-99) 256mg/dL (70-99) White Blood Count 9.6x10^3/uL (4.0-11.0) Red Blood Count 5.61x10^6/uL (3.50-5.40) Hemoglobin 12.4g/dL (12.0-15.5) Hematocrit 39.2% (36.0-47.0) Mean Corpuscular Volume 70fL (79-100) Mean Corpuscular Hemoglobin 22pg (25-35) Mean Corpuscular Hemoglobin Concent 32g/dL (31-37) Red Cell Distribution Width 15.5% (11.5-14.5) Platelet Count 276x10^3/uL (140-400) Neutrophils (%) (Auto) 89% (31-73) Lymphocytes (%) (Auto) 10% (24-48) Monocytes (%) (Auto) 1% (0-9) Eosinophils (%) (Auto) 0% (0-3) Basophils (%) (Auto) 1% (0-3) Neutrophils # (Auto) 8.5x10^3uL (1.8-7.7) Lymphocytes # (Auto) 1.0x10^3/uL (1.0-4.8) Monocytes # (Auto) 0.1x10^3/uL (0.0-1.1) Eosinophils # (Auto) 0.0x10^3/uL (0.0-0.7) Basophils # (Auto) 0.1x10^3/uL (0.0-0.2) Segmented Neutrophils % 92% (35-66) Lymphocytes % 8% (24-48) Platelet Estimate Adequate (ADEQUATE) Sodium Level 140mmol/L (136-145) Potassium Level 4.2mmol/L (3.5-5.1) Chloride Level 105mmol/L (98-107) Carbon Dioxide Level 23mmol/L (21-32) Anion Gap 12 (6-14) Blood Urea Nitrogen 10mg/dL (7-20) Creatinine 0.7mg/dL (0.6-1.0) Estimated GFR (Cockcroft-Gault) 100.1 Glucose Level 270mg/dL (70-99) Calcium Level 9.7mg/dL (8.5-10.1) Magnesium Level 1.6mg/dL (1.8-2.4) Laboratory Tests Test 01/14/17 11:33 01/14/17 15:30 01/14/17 17:57 01/14/17 20:47 Glucose (Fingerstick) 176mg/dL (70-99) 151mg/dL (70-99) 166mg/dL (70-99) Urine Collection Type Unknown Urine Color Yellow Urine Clarity Clear Urine pH 6.5 Urine Specific [place] 1.015 Urine Protein Negativemg/dL (NEG-TRACE) Urine Glucose (UA) 100mg/dL (NEG) Urine Ketones (Stick) Negativemg/dL (NEG) Urine Blood Negative (NEG) Urine Nitrite Negative (NEG) Urine Bilirubin Negative (NEG) Urine Urobilinogen Dipstick 0.2mg/dL (0.2 mg/dL) Urine Leukocyte Esterase Negative (NEG) Urine RBC 1-2/HPF (0-2) Urine WBC 0/HPF (0-4) Urine Squamous Epithelial Cells Few/LPF Urine Bacteria 0/HPF (0-FEW) Urine Mucus Slight/LPF Test 01/15/17 04:16 01/15/17 07:32 White Blood Count 9.6x10^3/uL (4.0-11.0) Red Blood Count 5.61x10^6/uL (3.50-5.40) Hemoglobin 12.4g/dL (12.0-15.5) Hematocrit 39.2% (36.0-47.0) Mean Corpuscular Volume 70fL (79-100) Mean Corpuscular Hemoglobin 22pg (25-35) Mean Corpuscular Hemoglobin Concent 32g/dL (31-37) Red Cell Distribution Width 15.5% (11.5-14.5) Platelet Count 276x10^3/uL (140-400) Neutrophils (%) (Auto) 89% (31-73) Lymphocytes (%) (Auto) 10% (24-48) Monocytes (%) (Auto) 1% (0-9) Eosinophils (%) (Auto) 0% (0-3) Basophils (%) (Auto) 1% (0-3) Neutrophils # (Auto) 8.5x10^3uL (1.8-7.7) Lymphocytes # (Auto) 1.0x10^3/uL (1.0-4.8) Monocytes # (Auto) 0.1x10^3/uL (0.0-1.1) Eosinophils # (Auto) 0.0x10^3/uL (0.0-0.7) Basophils # (Auto) 0.1x10^3/uL (0.0-0.2) Segmented Neutrophils % 92% (35-66) Lymphocytes % 8% (24-48) Platelet Estimate Adequate (ADEQUATE) Sodium Level 140mmol/L (136-145) Potassium Level 4.2mmol/L (3.5-5.1) Chloride Level 105mmol/L (98-107) Carbon Dioxide Level 23mmol/L (21-32) Anion Gap 12 (6-14) Blood Urea Nitrogen 10mg/dL (7-20) Creatinine 0.7mg/dL (0.6-1.0) Estimated GFR (Cockcroft-Gault) 100.1 Glucose Level 270mg/dL (70-99) Calcium Level 9.7mg/dL (8.5-10.1) Magnesium Level 1.6mg/dL (1.8-2.4) Glucose (Fingerstick) 256mg/dL (70-99) Medications Current Medications Ondansetron HCl (Zofran) 4 mg PRN Q8HRS PRN IV NAUSEA/VOMITING; Start 01/14/17 at 08:00; Stop 01/14/17 at 08:44; Status DC Morphine Sulfate 2 mg PRN Q2HR PRN IV PAIN; Start 01/14/17 at 08:00; Stop 01/14 at 08:44; Status DC Acetaminophen (Tylenol) 650 mg PRN Q4HRS PRN PO FEVER; Start 01/14/17 at 08:00 ; Stop 01/14/17 at 08:44; Status DC Aspirin (Linette Aspirin) 325 mg 1X ONCE PO Last administered on 01/14/17 08:34 ; Start 01/14/17 at 08:00; Stop 01/14/17 at 08:01; Status DC Morphine Sulfate 2 mg PRN Q2HR PRN IV PAIN; Start 01/14/17 at 08:45 Ondansetron HCl (Zofran) 4 mg PRN Q8HRS PRN IV NAUSEA/VOMITING; Start 01/14/17 at 08:45 Acetaminophen/ Hydrocodone Bitart (Lortab 5/325) 1 tab PRN Q6HRS PRN PO PAIN; Start 01/14/17 at 08:45; Stop 01/14/17 at 09:26; Status DC Acetaminophen (Tylenol) 650 mg PRN Q6HRS PRN PEG MILD PAIN / TEMP; Start at 08:45 Aspirin (Children'S Aspirin) 81 mg DAILYWBKFT PO Last administered on 08:27; Start 01/15/17 at 08:00 Potassium Chloride (Klor-Con) 20 meq 1X ONCE PO Last administered on 10:06; Start 01/14/17 at 08:45; Stop 01/14/17 at 08:46; Status DC Hydralazine HCl (Apresoline) 10 mg PRN Q4HRS PRN IVP ELEVATED BP, SEE COMMENTS Last administered on 01/14/17 09:31; Start 01/14/17 at 08:45 Metformin HCl (Glucophage) 500 mg BIDWMEALS PO Last administered on 01/15/17 08:27; Start 01/14/17 at 10:00 Metoprolol Tartrate (Lopressor) 100 mg BID PO Last administered on 01/15/17 08 :28; Start 01/14/17 at 10:00 Vitamin D (Vitamin D3) 1,000 unit DAILY PO Last administered on 01/15/17 08:27 ; Start 01/14/17 at 10:00 Cetirizine HCl (Zyrtec) 10 mg HS PO Last administered on 01/14/17 20:46; Start 01/14/17 at 21:00 Acetaminophen/ Hydrocodone Bitart (Lortab 7.5/325) 1 tab PRN Q6HRS PRN PO PAIN ; Start 01/14/17 at 09:30 Insulin Aspart (Novolog) TIDAC SQ Last administered on 01/15/17 08:45; Start 01/14/17 at 11:30 Famotidine (Pepcid) 20 mg BID PO Last administered on 01/15/17 08:27; Start at 10:00 Dexamethasone Sodium Phosphate (Decadron) 4 mg Q6HRS IV Last administered on 06:11; Start 01/14/17 at 19:00 Gabapentin (Neurontin) 100 mg TID PO Last administered on 01/15/17 08:27; Start 01/14/17 at 21:00 Active Scripts Active Reported Zyrtec (Cetirizine Hcl) 10 Mg Tablet 10 Mg PO HS Vitamin D3 (Cholecalciferol (Vitamin D3)) 1,000 Unit Tablet 1 Tab PO DAILY Metoprolol Tartrate 100 Mg Tablet 200 Mg PO BID Metformin Hcl 500 Mg Tablet 500 Mg PO BIDWMEALS Hydrocodone-Apap 7.5-325 (Hydrocodone Bit/Acetaminophen) 1 Each Tablet 1 Tab PO PRN Q6HRS PRN Multivitamins (Multivitamin) 1 Each Tablet 1 Tab PO DAILY Vitals/I & O Vital Sign - Last 24 Hours 01/14/17 01/14/17 01/14/17 01/14/17 15:00 19:35 20:00 20:46 Temp 98.3 97.7 98.3 97.7 Pulse 68 81 81 Resp 18 18 B/P 135/69 194/82 194/82 Pulse Ox 94 97 O2 Delivery Room Air Room Air Room Air 01/14/17 01/15/17 01/15/17 01/15/17 23:35 03:35 07:00 08:00 Temp 98.4 97.9 97.9 98.4 97.9 97.9 Pulse 78 67 70 Resp 18 18 18 B/P 157/72 164/71 165/74 Pulse Ox 95 92 96 O2 Delivery Room Air Room Air Room Air Room Air 01/15/17 08:28 Pulse 70 B/P 165/74 Intake and Output 01/14/17 01/14/17 01/15/17 15:00 23:00 07:00 Intake Total 300 ml 0 ml Output Total 400 ml 350 ml Balance -100 ml -350 ml BUD,[id number] R MD Jan 15, 2017 10:11
--- NOTE | 2017-01-15 10:21 | PDOC ---
HAMILTONHakeemBRENDA PASCAL KIOSK SALES REPRESENTATIVE 01/15/17 1021: IM PROGRESS NOTES- Subjective Subjective pain improved Objective Objective no distress Vitals Vital Signs Date Time Temp Pulse Resp B/P Pulse Ox O2 Delivery O2 Flow Rate FiO2 01/15/17 08:28 70 165/74 01/15/17 08:00 Room Air 01/15/17 07:00 97.9 18 96 97.9 Input & Output Intake and Output 01/15/17 07:00 Intake Total 300 ml Output Total 750 ml Balance -450 ml Intake Oral 300 ml Output Urine Total 750 ml # Voids 1 Physical Exam Physical Exam General appearance - alert,well appearing, and in no distress Mental Status - alert, oriented to person, place, and time, affect appropriate to mood Head - normal Chest - clear to auscultation, no wheezes, rales or rhonchi, symmetric air entry Heart - S1 and S2 normal Abdomen - soft, nontender, nondistended, no masses or organomegaly Neurological - R lower leg weakness mild. Musculoskeletal - no muscular tenderness noted Extremities - no pedal edema Skin - warm and dry Labs Laboratory Tests Test 01/14/17 06:30 01/14/17 11:33 01/14/17 15:30 01/14/17 17:57 White Blood Count 7.1x10^3/uL (4.0-11.0) Red Blood Count 5.43x10^6/uL (3.50-5.40) Hemoglobin 12.2g/dL (12.0-15.5) Hematocrit 38.4% (36.0-47.0) Mean Corpuscular Volume 71fL (79-100) Mean Corpuscular Hemoglobin 23pg (25-35) Mean Corpuscular Hemoglobin Concent 32g/dL (31-37) Red Cell Distribution Width 15.8% (11.5-14.5) Platelet Count 248x10^3/uL (140-400) Neutrophils (%) (Auto) 63% (31-73) Lymphocytes (%) (Auto) 26% (24-48) Monocytes (%) (Auto) 9% (0-9) Eosinophils (%) (Auto) 1% (0-3) Basophils (%) (Auto) 1% (0-3) Neutrophils # (Auto) 4.5x10^3uL (1.8-7.7) Lymphocytes # (Auto) 1.9x10^3/uL (1.0-4.8) Monocytes # (Auto) 0.6x10^3/uL (0.0-1.1) Eosinophils # (Auto) 0.1x10^3/uL (0.0-0.7) Basophils # (Auto) 0.1x10^3/uL (0.0-0.2) Platelet Estimate Adequate (ADEQUATE) Large Platelets Few Hypochromasia Mod Anisocytosis Slight Microcytosis Mod Prothrombin Time 13.7SEC (11.7-14.0) Prothromb Time International Ratio 1.1 (0.8-1.1) Activated Partial Thromboplast Time 26SEC (24-38) Sodium Level 144mmol/L (136-145) Potassium Level 3.4mmol/L (3.5-5.1) Chloride Level 106mmol/L (98-107) Carbon Dioxide Level 26mmol/L (21-32) Anion Gap 12 (6-14) Blood Urea Nitrogen 11mg/dL (7-20) Creatinine 0.7mg/dL (0.6-1.0) Estimated GFR (Cockcroft-Gault) 100.1 BUN/Creatinine Ratio 16 (6-20) Glucose Level 219mg/dL (70-99) Calcium Level 9.6mg/dL (8.5-10.1) Total Bilirubin 0.4mg/dL (0.2-1.0) Aspartate Amino Transf (AST/SGOT) 22U/L (15-37) Alanine Aminotransferase (ALT/SGPT) 29U/L (14-59) Alkaline Phosphatase 97U/L (46-116) Troponin I Quantitative < 0.017ng/mL (0.000-0.055) Total Protein 7.7g/dL (6.4-8.2) Albumin 3.6g/dL (3.4-5.0) Albumin/Globulin Ratio 0.9 (1.0-1.7) Glucose (Fingerstick) 176mg/dL (70-99) 151mg/dL (70-99) Urine Collection Type Unknown Urine Color Yellow Urine Clarity Clear Urine pH 6.5 Urine Specific [place] 1.015 Urine Protein Negativemg/dL (NEG-TRACE) Urine Glucose (UA) 100mg/dL (NEG) Urine Ketones (Stick) Negativemg/dL (NEG) Urine Blood Negative (NEG) Urine Nitrite Negative (NEG) Urine Bilirubin Negative (NEG) Urine Urobilinogen Dipstick 0.2mg/dL (0.2 mg/dL) Urine Leukocyte Esterase Negative (NEG) Urine RBC 1-2/HPF (0-2) Urine WBC 0/HPF (0-4) Urine Squamous Epithelial Cells Few/LPF Urine Bacteria 0/HPF (0-FEW) Urine Mucus Slight/LPF Test 01/14/17 20:47 01/15/17 04:16 01/15/17 07:32 Glucose (Fingerstick) 166mg/dL (70-99) 256mg/dL (70-99) White Blood Count 9.6x10^3/uL (4.0-11.0) Red Blood Count 5.61x10^6/uL (3.50-5.40) Hemoglobin 12.4g/dL (12.0-15.5) Hematocrit 39.2% (36.0-47.0) Mean Corpuscular Volume 70fL (79-100) Mean Corpuscular Hemoglobin 22pg (25-35) Mean Corpuscular Hemoglobin Concent 32g/dL (31-37) Red Cell Distribution Width 15.5% (11.5-14.5) Platelet Count 276x10^3/uL (140-400) Neutrophils (%) (Auto) 89% (31-73) Lymphocytes (%) (Auto) 10% (24-48) Monocytes (%) (Auto) 1% (0-9) Eosinophils (%) (Auto) 0% (0-3) Basophils (%) (Auto) 1% (0-3) Neutrophils # (Auto) 8.5x10^3uL (1.8-7.7) Lymphocytes # (Auto) 1.0x10^3/uL (1.0-4.8) Monocytes # (Auto) 0.1x10^3/uL (0.0-1.1) Eosinophils # (Auto) 0.0x10^3/uL (0.0-0.7) Basophils # (Auto) 0.1x10^3/uL (0.0-0.2) Segmented Neutrophils % 92% (35-66) Lymphocytes % 8% (24-48) Platelet Estimate Adequate (ADEQUATE) Sodium Level 140mmol/L (136-145) Potassium Level 4.2mmol/L (3.5-5.1) Chloride Level 105mmol/L (98-107) Carbon Dioxide Level 23mmol/L (21-32) Anion Gap 12 (6-14) Blood Urea Nitrogen 10mg/dL (7-20) Creatinine 0.7mg/dL (0.6-1.0) Estimated GFR (Cockcroft-Gault) 100.1 Glucose Level 270mg/dL (70-99) Calcium Level 9.7mg/dL (8.5-10.1) Magnesium Level 1.6mg/dL (1.8-2.4) Laboratory Tests Test 01/14/17 11:33 01/14/17 15:30 01/14/17 17:57 01/14/17 20:47 Glucose (Fingerstick) 176mg/dL (70-99) 151mg/dL (70-99) 166mg/dL (70-99) Urine Collection Type Unknown Urine Color Yellow Urine Clarity Clear Urine pH 6.5 Urine Specific [place] 1.015 Urine Protein Negativemg/dL (NEG-TRACE) Urine Glucose (UA) 100mg/dL (NEG) Urine Ketones (Stick) Negativemg/dL (NEG) Urine Blood Negative (NEG) Urine Nitrite Negative (NEG) Urine Bilirubin Negative (NEG) Urine Urobilinogen Dipstick 0.2mg/dL (0.2 mg/dL) Urine Leukocyte Esterase Negative (NEG) Urine RBC 1-2/HPF (0-2) Urine WBC 0/HPF (0-4) Urine Squamous Epithelial Cells Few/LPF Urine Bacteria 0/HPF (0-FEW) Urine Mucus Slight/LPF Test 01/15/17 04:16 01/15/17 07:32 White Blood Count 9.6x10^3/uL (4.0-11.0) Red Blood Count 5.61x10^6/uL (3.50-5.40) Hemoglobin 12.4g/dL (12.0-15.5) Hematocrit 39.2% (36.0-47.0) Mean Corpuscular Volume 70fL (79-100) Mean Corpuscular Hemoglobin 22pg (25-35) Mean Corpuscular Hemoglobin Concent 32g/dL (31-37) Red Cell Distribution Width 15.5% (11.5-14.5) Platelet Count 276x10^3/uL (140-400) Neutrophils (%) (Auto) 89% (31-73) Lymphocytes (%) (Auto) 10% (24-48) Monocytes (%) (Auto) 1% (0-9) Eosinophils (%) (Auto) 0% (0-3) Basophils (%) (Auto) 1% (0-3) Neutrophils # (Auto) 8.5x10^3uL (1.8-7.7) Lymphocytes # (Auto) 1.0x10^3/uL (1.0-4.8) Monocytes # (Auto) 0.1x10^3/uL (0.0-1.1) Eosinophils # (Auto) 0.0x10^3/uL (0.0-0.7) Basophils # (Auto) 0.1x10^3/uL (0.0-0.2) Segmented Neutrophils % 92% (35-66) Lymphocytes % 8% (24-48) Platelet Estimate Adequate (ADEQUATE) Sodium Level 140mmol/L (136-145) Potassium Level 4.2mmol/L (3.5-5.1) Chloride Level 105mmol/L (98-107) Carbon Dioxide Level 23mmol/L (21-32) Anion Gap 12 (6-14) Blood Urea Nitrogen 10mg/dL (7-20) Creatinine 0.7mg/dL (0.6-1.0) Estimated GFR (Cockcroft-Gault) 100.1 Glucose Level 270mg/dL (70-99) Calcium Level 9.7mg/dL (8.5-10.1) Magnesium Level 1.6mg/dL (1.8-2.4) Glucose (Fingerstick) 256mg/dL (70-99) Meds Current Medications Aspirin (Children'S Aspirin) 81 mg DAILYWBKFT PO Last administered on 08:27; Start 01/15/17 at 08:00 Cetirizine HCl (Zyrtec) 10 mg HS PO Last administered on 01/14/17 20:46; Start 01/14/17 at 21:00 Dexamethasone Sodium Phosphate (Decadron) 4 mg Q6HRS IV Last administered on 06:11; Start 01/14/17 at 19:00 Gabapentin (Neurontin) 100 mg TID PO Last administered on 01/15/17 08:27; Start 01/14/17 at 21:00 Insulin Aspart (Novolog) TIDAC SQ Last administered on 01/15/17 08:45; Start 01/14/17 at 11:30 Assessment Assessment IMPRESSION: 1. L hip pain post fall on home property 2. L lower leg instability with ambulation 3. malignant HTN 4. 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 diverticulosis 7. hypokalemia 8. 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 PLAN: LLE weakness/instability neuro consult Dr. 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 Cord hyperintensity may represent edema or myelomalacia. d/w Dr. Price. Neurosurgery consulted, surgery later today. Obtain cardiology pre op clearance malignant HTN resume home meds Hydralazine 10mg IV prn SBP >180 HTN + DM =begin ASA 81mg daily SBP 160s-begin Lisinopril 10mg daily 08/17 L Hip pain post falll XR L hip negative Dr. Price consult L knee instability- hypokalemia Admit K 3.4 01/15 4.2 01/15 Mg 1.6 replace Mg SO4 2 gm IV KCL 20meq 01/14 recheck 01/15 DM II with hyperglycemia/neuropathy FSBS/SSI low intensity continue metformin BS 151-270 hyperlipidemia on statin DVT/GI prophylaxis SCD/COLLEEN Pepcid For more details regarding further plans, please refer to the orders. Plan Plan For further plan of care please refer to the orders. SHAHRAM POLO MD 01/15/17 1046: IM PROGRESS NOTES- Assessment Assessment The patient was seen and examined by me. Chart reviewed and plan of care formulated. Discussed with, reviewed and agree with SHELLFISH CHECKER's notes, plan of care and orders with modifications as necessary. For more details regarding further plans, please refer to the orders. D/w pt,. BRENDA RANDOLPH KIOSK SALES REPRESENTATIVE Jan 15, 2017 10:21 SHAHRAM POLO MD Jan 15, 2017 10:46
[2017-01-15 11:00] VITALS: BP 170/79
[2017-01-15] MEDS ORDERED: CLONIDINE HCL 0.1 MG TABLET PO PRN (11:00)
[2017-01-15] MEDS: LISINOPRIL 10 MG TABLET PO SCH (11:30)
[2017-01-15] MEDS ORDERED: CEFAZOLIN 2GM PREMIX 50 ML IV ONE (13:15)
--- NOTE | 2017-01-15 13:29 | PDOC2 ---
CARDIAC CONSULT DATE OF CONSULT Date of Consult DATE: 01/15/17 TIME: 13:28 REASON FOR CONSULT Reason for Consult: pre-op clearance REFERRING PHYSICIAN Referring Physician: Cherelle Franco APRN SOURCE Source: Chart review, Patient HISTORY OF PRESENT ILLNESS HISTORY OF PRESENT ILLNESS 71 year old female with a 3 week history of progressive left lower extremity weakness. MRI demonstrating high grade canal stenosis @ T11- T12 with cord flattening. Initially scheduled for surgery today and now deferred until tomorrow morning. Reason for Visit: pe-operative evaluation PAST MEDICAL HISTORY Cardiovascular: HTN, Hyperlipidemia Pulmonary: No pertinent hx CENTRAL NERVOUS SYSTEM: Other (denies) GI: Diverticulosis (? - denied by patient), Other (obesity) Heme/Onc: No pertinent hx Hepatobiliary: No pertinent hx Psych: No pertinent hx Musculoskeletal: Other (DDD) Rheumatologic: No pertinent hx Infectious disease: No pertinent hx ENT: No pertinent hx Renal/: No pertinent hx Endocrine: Diabetes (type II) Dermatology: No pertinent hx PAST SURGICAL HISTORY Past Surgical History: Total knee replacement (right), Hysterectomy FAMILY HISTORY Family History: Cancer, Hypertension SOCIAL HISTORY Smoke: No ALCOHOL: none Lives: with Family () CURRENT MEDICATIONS CURRENT MEDICATIONS Current Medications Medications (Trade) Dose Ordered Sig/Andre Route PRN Reason Start Time Stop Time Status Last Admin Dose Admin Aspirin (Children'S Aspirin) 81 mg DAILYWBKFT PO 01/15/17 08:00 01/15/17 08:27 Cetirizine HCl (Zyrtec) 10 mg HS PO 01/14/17 21:00 01/14/17 20:46 Dexamethasone Sodium Phosphate (Decadron) 4 mg Q6HRS IV 01/14/17 19:00 01/15/17 11:29 Gabapentin (Neurontin) 100 mg TID PO 01/14/17 21:00 01/15/17 08:27 Lisinopril (Prinivil) 10 mg DAILY PO 01/15/17 11:00 01/15/17 11:30 ALLERGIES ALLERGIES: Coded Allergies: No Known Drug Allergies (Unverified , 07/25/15) ROS General: No: Appetite, Chills, Fatigue, Malaise, Night Sweats, Other PSYCHOLOGICAL ROS: No: Anxiety, Behavioral Disorder, Concentration difficultie , Decreased libido, Depression, Disorientation, Hallucinations, Hostility, Irritablity, Memory difficulties, Mood Swings, Obsessive thoughts, Other, Physical abuse, Sexual abuse, Sleep disturbances, Suicidal ideation Eyes: No Blurry vision, No Decreased vision, No Double vision, No Dry eyes, No Excessive tearing, No Eye Pain, No Itchy Eyes, No Loss of vision, No Other, No Photophobia, No Scotomata, No Uses contacts, No Uses glasses HEENT: No: Epistaxis, Heacaches, Hearing change, Nasal congestion, Nasal discharge, Oral lesions, Other, Sinus pain, Sneezing, Snoring, Sore Throat, Tinnitus, Vertigo, Visual Changes, Vocal changes ALLERGY AND IMMUNOLOGY: No: Hives, Insect Bite Sensitivity, Itchy/Watery Eyes, Nasal Congestion, Other, Post Nasal Drip, Seasonal Allergies Hematological and Lymphatic: No: Bleeding Problems, Blood Clots, Blood Transfusions, Brusing, Night Sweats, Other, Pallor, Swollen Lymph Nodes ENDOCRINE: No: Breast Changes, Galactorrhea, Hair Pattern Changes, Hot Flashes , Malaise/lethargy, Mood Swings, Other, Palpitations, Polydipsia/polyuria, Skin Changes, Temperature Intolerance, Unexpected Weight Changes Respiratory: YES: Other (has been unable to exert herself recently due to LLE weakness), No: Cough, Hemoptysis, Orthopnea, Pleuritic Pain, SOB with excertion, Shortness of breath, Sputum Changes, Stridor, Tachypnea, Wheezing Cardiovascular: No Chest Pain, No Edema, No Lt Headedness, No Orthopnea, No Other, No Palpitations, No Paroxysmal Noc. Dyspnea Gastrointestinal: No Abdominal Pain, No Constipation, No Diarrhea, No Hematochezia, No Melena, No Nausea, No Other, No Vomiting Genitourinary: YES , No Discharge, No Dysuria, No Flank Pain, No Frequency, No Hematuria, No Incontinence, No Other, No Pain, No Retention, No Urgency Musculoskeletal: Yes Pain In: (LLE ) Neurological: No Behavorial Changes, No Bowel/Bladder ControlChng, No Confusion , No Dizziness, No Gait Disturbance, No Headaches, No Impaired Coord/balance, No Memory Loss, No Numbness/Tingling, No Other, No Seizures, No Speech Problems , No Tremors, No Visual Changes, No Weakness Skin: No Acne, No Dry Skin, No Eczema, No Hair Changes, No Lumps, No Mole Changes, No Mottling, No Nail Changes, No Other, No Pruritus, No Rash, No Skin Lesion Changes PHYSICAL EXAM General: Alert, Oriented X3, Cooperative, No acute distress HEENT: Atraumatic, PERRLA Lungs: Clear to auscultation, Normal air movement Heart: Regular rate, Normal S1, Normal S2, Other (3/6 JOANNE - presumed aortic; radiates to carotids bilaterally) Abdomen: Normal bowel sounds, Soft, No tenderness Extremities: No edema, Normal pulses Skin: No rashes Neuro: Normal speech Psych/Mental Status: Mental status NL, Mood NL MUSCULOSKELETAL: No deformity VITALS VITALS Vital Signs Date Time Temp Pulse Resp B/P Pulse Ox O2 Delivery O2 Flow Rate FiO2 01/15/17 11:30 70 165/74 01/15/17 11:00 98.1 18 94 Room Air 98.1 LABS Lab: Laboratory Tests Test 01/14/17 15:30 01/14/17 17:57 01/14/17 20:47 01/15/17 04:16 Urine Collection Type Unknown Urine Color Yellow Urine Clarity Clear Urine pH 6.5 Urine Specific [place] 1.015 Urine Protein Negativemg/dL (NEG-TRACE) Urine Glucose (UA) 100mg/dL (NEG) Urine Ketones (Stick) Negativemg/dL (NEG) Urine Blood Negative (NEG) Urine Nitrite Negative (NEG) Urine Bilirubin Negative (NEG) Urine Urobilinogen Dipstick 0.2mg/dL (0.2 mg/dL) Urine Leukocyte Esterase Negative (NEG) Urine RBC 1-2/HPF (0-2) Urine WBC 0/HPF (0-4) Urine Squamous Epithelial Cells Few/LPF Urine Bacteria 0/HPF (0-FEW) Urine Mucus Slight/LPF Glucose (Fingerstick) 151mg/dL (70-99) 166mg/dL (70-99) White Blood Count 9.6x10^3/uL (4.0-11.0) Red Blood Count 5.61x10^6/uL (3.50-5.40) Hemoglobin 12.4g/dL (12.0-15.5) Hematocrit 39.2% (36.0-47.0) Mean Corpuscular Volume 70fL (79-100) Mean Corpuscular Hemoglobin 22pg (25-35) Mean Corpuscular Hemoglobin Concent 32g/dL (31-37) Red Cell Distribution Width 15.5% (11.5-14.5) Platelet Count 276x10^3/uL (140-400) Neutrophils (%) (Auto) 89% (31-73) Lymphocytes (%) (Auto) 10% (24-48) Monocytes (%) (Auto) 1% (0-9) Eosinophils (%) (Auto) 0% (0-3) Basophils (%) (Auto) 1% (0-3) Neutrophils # (Auto) 8.5x10^3uL (1.8-7.7) Lymphocytes # (Auto) 1.0x10^3/uL (1.0-4.8) Monocytes # (Auto) 0.1x10^3/uL (0.0-1.1) Eosinophils # (Auto) 0.0x10^3/uL (0.0-0.7) Basophils # (Auto) 0.1x10^3/uL (0.0-0.2) Segmented Neutrophils % 92% (35-66) Lymphocytes % 8% (24-48) Platelet Estimate Adequate (ADEQUATE) Sodium Level 140mmol/L (136-145) Potassium Level 4.2mmol/L (3.5-5.1) Chloride Level 105mmol/L (98-107) Carbon Dioxide Level 23mmol/L (21-32) Anion Gap 12 (6-14) Blood Urea Nitrogen 10mg/dL (7-20) Creatinine 0.7mg/dL (0.6-1.0) Estimated GFR (Cockcroft-Gault) 100.1 Glucose Level 270mg/dL (70-99) Calcium Level 9.7mg/dL (8.5-10.1) Magnesium Level 1.6mg/dL (1.8-2.4) Test 01/15/17 07:32 01/15/17 11:46 Glucose (Fingerstick) 256mg/dL (70-99) 268mg/dL (70-99) IMAGES IMAGES CXR pending EKG EKG done 01/14/2017: NSR; no acute changes ECHOCARDIOGRAM ECHOCARDIOGRAM pending ASSESSMENT/PLAN ASSESSMENT/PLAN 1. pre-operative evaluation multiple risk factors for CVD: age, HTN, HLD, DM, obesity, though without cardiac symptoms (unable to exert for at least 3 weeks) undiagnosed murmur - echo to assess severity further cardiac testing dependent on echo results CXR to evaluate heart size continue beta-blockers during brittany-operative period (do not recommend use of clonidine with BB due to increased risk of bradycardia) 2. undiagnosed murmur suspicious for aortic in etiology echo to evaluate 3. HTN continue BB & ACEI consider increasing ACEI dose to improve BP control or add amlodipine though suspect some elevation due to pain 4. HLD continue usual statin therapy 5. DM, II per primary service 6. obesity Problems: RAIN RIZZO CAMP COOK Jan 15, 2017 13:28
[2017-01-15] MEDS ORDERED: MAGNESIUM SULFATE 2GM 50 ML IV ONE (13:30)
--- NOTE | 2017-01-15 13:57 | RAD ---
Indication preop. Anticipated thoracic laminectomy. History of hypertension. A single view of the chest was obtained and is compared to an examination 10/29/2010. The heart and pulmonary vessels appear normal. The lungs are clear. There is no pleural fluid or pneumothorax. Bony structures appear grossly intact. Significant change compared to the previous exam is not seen. IMPRESSION: No acute or focal process. No significant change
[2017-01-15 15:00] VITALS: BP 186/84
--- NOTE | 2017-01-15 15:50 | PDOC ---
PROGRESS NOTES Assessment Assessment Left LE weakness x 3 months, worse for 1 week. Left leg pain. 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 Degenerative spine and disc disease. DM HTN HLD Diverticulosis. Obesity Falls. No evidence of acute CVA this time. RECOMMENDATIONS/PLAN: Continue Neurontin, increase to300 mg tid. Decadron for short term use. NS consulted and surgery planned. Treat underlying medical diseases. OT/PT. Discussed with her at bedside on 01/15. L-spine MRI, performed. HISTORY OF THE PRESENT ILLNESS: 71-y-old AA female patient with above medical diseases developed symptoms of weakness in her left LE for about 1 week. But on further questioning, she said she has been having left LE weakness since 09/2016 and her weakness got worse for about 1 weeks before she came to [facility] this time. Her weakness progress and she was eventually unable to mobile. She also has symptoms of pain in lateral aspect of her left LE from hip down to knee. No symptoms of urinary or bowel dysfunction. Her UE and cranial nerves were not involved. PAST MEDICAL HISTORY: Please see above. PAST SURGERY HISTORY: Hysterectomy, Knee surgery ALLERGY: Reviewed. MEDICATIONS: Refer to [facility] FAMILY HISTORY: Her mother had colon cancer. Her father had lung cancer. SOCIAL HISTORY: Lives at home. Denies current smoking, drinking, and illicit drug use. REVIEW OF SYSTEMS: Constitutional: No malnutrition, weight loss, cachexia. Head: No traumatic brain or head injury. Skin: No edema, or rash. Ear: No infection. Eyes: No vision loss or color blindness. Nose: No bleeding or purulent discharges. Hearing: No hearing decrease. Neck: Pain. Breast: No history of cancer, masses,or discharges. Cardiac: HTN, HLD. Pulmonary: No COPD. GI: No GI ulcer, GI bleeding. Urinary/genital: UTI. Endocrinologic: Diabetes Mellitus, obesity. Skeletomuscular: No muscular atrophy, deformity.. Neurological: see HP. Psychiatric: Denies drug use/abuse. Otherwise, not [id number] review of systems. PHYSICAL EXAMINATION: General appearance is in subacute distress. HEENT: Normocephalic and nontraumatic. Eyes, nose, ears, and throat are unremarkable. Neck is supple. No lymphadenopathy. No bruits are heard over the carotid artery. No crepitus. Cardiovascular: S1, S2, regular rate and rhythm. Pulmonary: Clear to auscultation bilaterally. Abdomen: Bowel sounds are positive. Abdomen is soft, nontender, and nondistended. Extremities: No rash, lesions, or edema. Restriction of range of motion in left LE. NEUROLOGICAL EXAMINATION: Alert Oriented to time, place and person. PERRL. EOMI. CN: no focal findings. Muscle tone: within normal. Muscle strength: 5 right UE and LE and left UE, 2-3 left LE. DTR: 2- UE, 1 at knee. Plantar reflex: Flexor response bilaterally Gait: Unable to walk. Sensory exam: subjective pain at left LE when touch. No obvious cerebellar signs elicited. F-T-N test fine. Objective Objective Vital Signs Date Time Temp Pulse Resp B/P Pulse Ox O2 Delivery O2 Flow Rate FiO2 01/15/17 15:00 97.9 84 18 186/84 93 Room Air 97.9 Intake and Output 01/15/17 07:00 Intake Total 300 ml Output Total 750 ml Balance -450 ml Intake Oral 300 ml Output Urine Total 750 ml # Voids 1 Vitals Signs Vitals VS - Last 72 Hours, by Label Date Time Temp Pulse Resp B/P Pulse Ox O2 Delivery O2 Flow Rate FiO2 01/15/17 15:00 97.9 84 18 186/84 93 Room Air 97.9 01/15/17 11:30 70 165/74 01/15/17 11:00 98.1 73 18 170/79 94 Room Air 98.1 01/15/17 08:28 70 165/74 01/15/17 08:00 Room Air 01/15/17 07:00 97.9 70 18 165/74 96 Room Air 97.9 01/15/17 03:35 97.9 67 18 164/71 92 Room Air 97.9 01/14/17 23:35 98.4 78 18 157/72 95 Room Air 98.4 01/14/17 20:46 81 194/82 01/14/17 20:00 Room Air 01/14/17 19:35 97.7 81 18 194/82 97 Room Air 97.7 01/14/17 15:00 98.3 68 18 135/69 94 Room Air 98.3 01/14/17 10:07 77 207/84 01/14/17 09:52 Room Air 01/14/17 09:49 98.9 77 207/84 99 98.9 01/14/17 09:31 77 207/84 01/14/17 09:10 98.5 77 18 99 Room Air 98.5 01/14/17 09:10 98.9 77 18 99 Room Air 98.9 01/14/17 08:48 78 20 203/86 98 Room Air 01/14/17 08:22 213/88 01/14/17 08:20 81 18 221/93 100 Room Air 01/14/17 08:00 84 18 195/85 97 Room Air 01/14/17 07:39 72 20 177/83 98 Room Air Laboratory Laboratory Laboratory Tests Test 01/14/17 17:57 01/14/17 20:47 01/15/17 04:16 01/15/17 07:32 Glucose (Fingerstick) 151mg/dL (70-99) 166mg/dL (70-99) 256mg/dL (70-99) White Blood Count 9.6x10^3/uL (4.0-11.0) Red Blood Count 5.61x10^6/uL (3.50-5.40) Hemoglobin 12.4g/dL (12.0-15.5) Hematocrit 39.2% (36.0-47.0) Mean Corpuscular Volume 70fL (79-100) Mean Corpuscular Hemoglobin 22pg (25-35) Mean Corpuscular Hemoglobin Concent 32g/dL (31-37) Red Cell Distribution Width 15.5% (11.5-14.5) Platelet Count 276x10^3/uL (140-400) Neutrophils (%) (Auto) 89% (31-73) Lymphocytes (%) (Auto) 10% (24-48) Monocytes (%) (Auto) 1% (0-9) Eosinophils (%) (Auto) 0% (0-3) Basophils (%) (Auto) 1% (0-3) Neutrophils # (Auto) 8.5x10^3uL (1.8-7.7) Lymphocytes # (Auto) 1.0x10^3/uL (1.0-4.8) Monocytes # (Auto) 0.1x10^3/uL (0.0-1.1) Eosinophils # (Auto) 0.0x10^3/uL (0.0-0.7) Basophils # (Auto) 0.1x10^3/uL (0.0-0.2) Segmented Neutrophils % 92% (35-66) Lymphocytes % 8% (24-48) Platelet Estimate Adequate (ADEQUATE) Sodium Level 140mmol/L (136-145) Potassium Level 4.2mmol/L (3.5-5.1) Chloride Level 105mmol/L (98-107) Carbon Dioxide Level 23mmol/L (21-32) Anion Gap 12 (6-14) Blood Urea Nitrogen 10mg/dL (7-20) Creatinine 0.7mg/dL (0.6-1.0) Estimated GFR (Cockcroft-Gault) 100.1 Glucose Level 270mg/dL (70-99) Calcium Level 9.7mg/dL (8.5-10.1) Magnesium Level 1.6mg/dL (1.8-2.4) Test 01/15/17 11:46 Glucose (Fingerstick) 268mg/dL (70-99) Medication Medications Current Medications Aspirin (Children'S Aspirin) 81 mg DAILYWBKFT PO Last administered on 08:27; Start 01/15/17 at 08:00 Cefazolin Sodium/ Dextrose 50 ml @ 100 mls/hr 1X PREOP ONCE IV ; Start at 13:15; Stop 01/15/17 at 13:44; Status DC Cetirizine HCl (Zyrtec) 10 mg HS PO Last administered on 01/14/17 20:46; Start 01/14/17 at 21:00 Clonidine HCl 0.1 mg 0.1 mg PRN Q8HRS PRN PO ELEVATED BP, SEE COMMENTS; Start 01/15/17 at 11:00 Dexamethasone Sodium Phosphate (Decadron) 4 mg Q6HRS IV Last administered on 11:29; Start 01/14/17 at 19:00 Fentanyl Citrate (Fentanyl 2ml Vial) 25 mcg PRN Q5MIN PRN IV MILD PAIN; Start 01/16/17 at 07:00; Stop 01/16/17 at 18:00 Fentanyl Citrate (Fentanyl 2ml Vial) 50 mcg PRN Q5MIN PRN IV MODERATE PAIN; Start 01/16/17 at 07:00; Stop 01/16/17 at 18:00 Gabapentin (Neurontin) 100 mg TID PO Last administered on 01/15/17 08:27; Start 01/14/17 at 21:00 Hydromorphone HCl (Dilaudid) 0.5 mg PRN Q10MIN PRN IV SEVERE PAIN, Second choice; Start 01/16/17 at 07:00; Stop 01/16/17 at 18:00 Lactated Ringer's (Iv Lactated Ringers) 1,000 ml @ 30 mls/hr Q24H IV ; Start at 07:00; Stop 01/16/17 at 18:59 Lidocaine HCl 2 ml 1X PRN PRN ID IV START; Start 01/16/17 at 07:00; Stop at 18:00 Lisinopril (Prinivil) 10 mg DAILY PO Last administered on 01/15/17 11:30; Start 01/15/17 at 11:00 Magnesium Sulfate/ Dextrose (Magnesium Sulfate PREMIX 2GM) 50 ml @ 25 mls/hr 1X ONCE IV ; Start 01/15/17 at 13:30; Stop 01/15/17 at 15:29; Status DC Morphine Sulfate 1 mg 1 mg PRN Q10MIN PRN IV SEVERE PAIN; Start 01/16/17 at 07: 00; Stop 01/16/17 at 18:00 Ondansetron HCl (Zofran) 4 mg PRN Q6HRS PRN IV Nausea; Start 01/16/17 at 07:00 ; Stop 01/16/17 at 18:00 Prochlorperazine Edisylate (Compazine) 5 mg PACU PRN PRN IV NAUSEA; Start 01/16 at 07:00; Stop 01/16/17 at 18:00 Comment Review of Relevant I have reviewed the following items alberto (where applicable) has been applied. GLORIA WERNER MD Jan 15, 2017 15:50
--- NOTE | 2017-01-15 16:10 | CARD ---
APPROVED REPORT EXAM: Two-dimensional and M-mode echocardiogram with Doppler and color Doppler. Other Information Quality : GoodHR: 80bpm Rhythm : NSR INDICATION Pre-Op Murmur RISK FACTORS Hypertension Obesity Hyperlipidemia Diabetes 2D DIMENSIONS RVDd2.8 (2.9-3.5cm)Left Atrium(2D)3.7 (1.6-4.0cm) IVSd1.0 (0.7-1.1cm)Aortic Root(2D)1.6 (2.0-3.7cm) LVDd5.1 (3.9-5.9cm)LVOT Diameter2.4 (1.8-2.4cm) PWd1.0 (0.7-1.1cm)LVDs3.3 (2.5-4.0cm) FS (%) 35.2 %SV78.1 ml LVEF(%)64.2 (>50%) Aortic Valve AoV Peak Joni.227.4cm/sAoV VTI47.7cm AO Peak GR.20.7mmHgLVOT VTI 26.70cm AO Mean GR.10mmHg Mitral Valve MV E Guarljub042.7cm/sMV E Peak Gr.5mmHg MV DECEL [id number] A Kewqnyzk938.8cm/s MV E Mean Gr.3mmHgE/A Ratio0.9 MV A [id number] TDI Medial E' P. V7.11cm/sE/Medial E'14.6 Tricuspid Valve TR P. Cuqkmvqg043gt/sRAP [id number] TR Peak Gr.19mmHg Pulmonary Vein S1 Vsrgqueq88.7cm/sS2 Nizmsuay55.93cm/s D2 Eryqizmv24.9cm/sPVa [id number] LEFT VENTRICLE The left ventricle is normal size. There is normal left ventricular wall thickness. The left ventricu lar systolic function is normal and the ejection fraction is within normal range. The Ejection Fracti on is 60-65%. There is normal LV segmental wall motion. Transmitral Doppler flow pattern is Grade I-a bnormal relaxation pattern. RIGHT VENTRICLE The right ventricle is normal size. There is normal right ventricular wall thickness. The right ventr icular systolic function is normal. ATRIA The left atrium size is normal. The right atrium size is normal. The interatrial septum is intact wit h no evidence for an atrial septal defect or patent foramen ovale as noted on 2-D or Doppler imaging. AORTIC VALVE The aortic valve is mildly sclerotic. The aortic valve is trileaflet. Doppler and Color Flow revealed no significant aortic regurgitation. There is no significant aortic valvular stenosis. MITRAL VALVE Mitral annular calcification is mild. The mitral valve leaflets are thickened. There is no evidence o f mitral valve prolapse. There is no mitral valve stenosis. Doppler and Color Flow revealed mild mitr al regurgitation. TRICUSPID VALVE Doppler and Color Flow revealed mild tricuspid regurgitation. The pulmonary artery systolic pressure is estimated at 22 mmHg. PULMONIC VALVE Doppler and Color Flow revealed trace pulmonic valvular regurgitation. There is no pulmonic valvular stenosis. GREAT VESSELS The aortic root is normal in size. The ascending aorta is normal in size. The pulmonary artery is nor mal. The IVC is normal in size and collapses >50% with inspiration. PERICARDIAL EFFUSION There is no evidence of significant pericardial effusion. Critical Notification Critical Value: No <Conclusion> The left ventricle is normal size. The left ventricular systolic function is normal and the ejection fraction is within normal range. The Ejection Fraction is 60-65%. There is no significant aortic valvular stenosis. Doppler and Color Flow revealed no significant aortic regurgitation. Doppler and Color Flow revealed mild mitral regurgitation. Doppler and Color Flow revealed mild tricuspid regurgitation. The pulmonary artery systolic pressure is estimated at 22 mmHg. There is no evidence of significant pericardial effusion.
[2017-01-15 19:55] VITALS: BP 157/71
[2017-01-15] MEDS: CETIRIZINE HCL 10 MG TABLET. PO SCH (21:39)
[2017-01-15 23:16] VITALS: BP 141/58
[2017-01-16] VITALS (12 sets, daily range): BP systolic 129–158; BP diastolic 63–92
[2017-01-16] MEDS: DEXAMETHASONE SOD PHOS 4 MG/ML VIAL IV SCH ×4 (00:09→16:54)
[2017-01-16 04:09] LABS: BASO % 0 % (0-3); EOS % 0 % (0-3); HEMATOCRIT 36.1 % (36.0-47.0); HEMOGLOBIN 11.4 g/dL (12.0-15.5); LYMPH # 1.5 x10^3/uL (1.0-4.8); LYMPH % 10 % (24-48); MEAN CORPUSCULAR HEMOGLOBIN 22 pg (25-35); MEAN CORPUSCULAR HGB CONC 32 g/dL (31-37); MEAN CORPUSCULAR VOLUME 70 fL (79-100); MONO % 4 % (0-9); NEUT % 85 % (31-73); PLATELET COUNT 272 x10^3/uL (140-400); RED BLOOD COUNT 5.16 x10^6/uL (3.50-5.40); RED CELL DISTRIBUTION WIDTH 15.9 % (11.5-14.5); WHITE BLOOD COUNT 14.9 x10^3/uL (4.0-11.0)
[2017-01-16 04:48] LABS: CALCIUM 9.5 mg/dL (8.5-10.1); CREATININE 0.6 mg/dL (0.6-1.0); GFR 119.6; POTASSIUM 3.8 mmol/L (3.5-5.1)
[2017-01-16] MEDS ORDERED: CEFAZOLIN 2GM PREMIX 50 ML IV ONE (06:00)
[2017-01-16] MEDS ORDERED: ONDANSETRON PF 4 MG/2 ML VIAL. IV PRN ×2 (06:28→07:00)
[2017-01-16] MEDS ORDERED: THROMBIN 20,000 UNIT SPRAY.SYRN KIT TP ONE (06:46)
[2017-01-16] MEDS ORDERED: KETOROLAC 60 MG/2 ML INJ FOR OR. ONE (06:47)
[2017-01-16] MEDS ORDERED: GELATIN SPONGE SIZE 100. ONE (06:47)
[2017-01-16] MEDS ORDERED: BUPIVAC MPF-EPI 0.5%-1:200000 30 ML VIAL. ONE (06:48)
[2017-01-16] MEDS ORDERED: PROCHLORPERAZINE 10 MG/2 ML VIAL. IV PRN (07:00)
[2017-01-16] MEDS ORDERED: MORPHINE SULFATE 2 MG/ML DISP.SYRIN. IV PRN (07:00)
[2017-01-16] MEDS ORDERED: HYDROMORPHONE 2 MG/ML VIAL. IV PRN (07:00)
[2017-01-16] MEDS ORDERED: LIDOCAINE 1% 1 ML SYRINGE. ID PRN (07:00)
[2017-01-16] MEDS ORDERED: IV RINGERS,LACTATED 1000ML 1,000 ML IV SCH (07:00)
[2017-01-16] MEDS ORDERED: FENTANYL PF 100 MCG/2 ML VIAL. IV PRN (07:00)
[2017-01-16] MEDS: INSULIN ASPART 300 UNITS/3 ML INSULN.PEN SQ SCH ×3 (07:30→16:57)
[2017-01-16] MEDS: ASPIRIN CHEWABLE 81 MG TABLET. PO SCH (08:00)
[2017-01-16] MEDS ORDERED: PROPOFOL 50 ML IV ONE ×2 (08:03→10:41)
[2017-01-16] MEDS ORDERED: 0.9 % SODIUM CHLORIDE 50 ML VIAL. IJ ONE (08:03)
[2017-01-16] MEDS ORDERED: PROPOFOL 20 ML IV ONE (08:03)
[2017-01-16] MEDS ORDERED: LIDOCAINE 2% 100 MG/5 ML DISP.SYRIN. ONE (08:03)
[2017-01-16] MEDS ORDERED: REMIFENTANIL 2 MG VIAL. IV ONE (08:04)
[2017-01-16] MEDS ORDERED: FENTANYL PF 100 MCG/2 ML VIAL. ONE (08:04)
[2017-01-16] MEDS ORDERED: ROCURONIUM 50 MG/5 ML VIAL. ONE (08:04)
[2017-01-16] MEDS ORDERED: SUCCINYLCHOLINE 200 MG/10 ML VIAL. ONE (08:04)
--- NOTE | 2017-01-16 08:25 | PDOC ---
HAMILTONHakeemBRENDA PASCAL EQUIPMENT SUPERINTENDENT 01/16/17 0825: IM PROGRESS NOTES- Subjective Subjective pain improved Objective Objective no distress Vitals Vital Signs Date Time Temp Pulse Resp B/P Pulse Ox O2 Delivery O2 Flow Rate FiO2 01/16/17 07:50 98.1 66 16 175/81 97 Room Air 98.1 Input & Output Intake and Output 01/16/17 07:00 Intake Total 700 ml Output Total 600 ml Balance 100 ml Intake Oral 700 ml Output Urine Total 600 ml # Voids 1 Physical Exam Physical Exam General appearance - alert,well appearing, and in no distress Mental Status - alert, oriented to person, place, and time, affect appropriate to mood Head - normal Chest - clear to auscultation, no wheezes, rales or rhonchi, symmetric air entry Heart - S1 and S2 normal Abdomen - soft, nontender, nondistended, no masses or organomegaly Neurological - R lower leg weakness mild. Musculoskeletal - no muscular tenderness noted Extremities - no pedal edema Skin - warm and dry Labs Laboratory Tests Test 01/14/17 11:33 01/14/17 15:30 01/14/17 17:57 01/14/17 20:47 Glucose (Fingerstick) 176mg/dL (70-99) 151mg/dL (70-99) 166mg/dL (70-99) Urine Collection Type Unknown Urine Color Yellow Urine Clarity Clear Urine pH 6.5 Urine Specific [place] 1.015 Urine Protein Negativemg/dL (NEG-TRACE) Urine Glucose (UA) 100mg/dL (NEG) Urine Ketones (Stick) Negativemg/dL (NEG) Urine Blood Negative (NEG) Urine Nitrite Negative (NEG) Urine Bilirubin Negative (NEG) Urine Urobilinogen Dipstick 0.2mg/dL (0.2 mg/dL) Urine Leukocyte Esterase Negative (NEG) Urine RBC 1-2/HPF (0-2) Urine WBC 0/HPF (0-4) Urine Squamous Epithelial Cells Few/LPF Urine Bacteria 0/HPF (0-FEW) Urine Mucus Slight/LPF Test 01/15/17 04:16 01/15/17 07:32 01/15/17 11:46 01/15/17 16:53 White Blood Count 9.6x10^3/uL (4.0-11.0) Red Blood Count 5.61x10^6/uL (3.50-5.40) Hemoglobin 12.4g/dL (12.0-15.5) Hematocrit 39.2% (36.0-47.0) Mean Corpuscular Volume 70fL (79-100) Mean Corpuscular Hemoglobin 22pg (25-35) Mean Corpuscular Hemoglobin Concent 32g/dL (31-37) Red Cell Distribution Width 15.5% (11.5-14.5) Platelet Count 276x10^3/uL (140-400) Neutrophils (%) (Auto) 89% (31-73) Lymphocytes (%) (Auto) 10% (24-48) Monocytes (%) (Auto) 1% (0-9) Eosinophils (%) (Auto) 0% (0-3) Basophils (%) (Auto) 1% (0-3) Neutrophils # (Auto) 8.5x10^3uL (1.8-7.7) Lymphocytes # (Auto) 1.0x10^3/uL (1.0-4.8) Monocytes # (Auto) 0.1x10^3/uL (0.0-1.1) Eosinophils # (Auto) 0.0x10^3/uL (0.0-0.7) Basophils # (Auto) 0.1x10^3/uL (0.0-0.2) Segmented Neutrophils % 92% (35-66) Lymphocytes % 8% (24-48) Platelet Estimate Adequate (ADEQUATE) Sodium Level 140mmol/L (136-145) Potassium Level 4.2mmol/L (3.5-5.1) Chloride Level 105mmol/L (98-107) Carbon Dioxide Level 23mmol/L (21-32) Anion Gap 12 (6-14) Blood Urea Nitrogen 10mg/dL (7-20) Creatinine 0.7mg/dL (0.6-1.0) Estimated GFR (Cockcroft-Gault) 100.1 Glucose Level 270mg/dL (70-99) Calcium Level 9.7mg/dL (8.5-10.1) Magnesium Level 1.6mg/dL (1.8-2.4) Glucose (Fingerstick) 256mg/dL (70-99) 268mg/dL (70-99) 272mg/dL (70-99) Test 3/29/17 21:18 01/16/17 03:50 01/16/17 07:05 Glucose (Fingerstick) 239mg/dL (70-99) 228mg/dL (70-99) White Blood Count 14.9x10^3/uL (4.0-11.0) Red Blood Count 5.16x10^6/uL (3.50-5.40) Hemoglobin 11.4g/dL (12.0-15.5) Hematocrit 36.1% (36.0-47.0) Mean Corpuscular Volume 70fL (79-100) Mean Corpuscular Hemoglobin 22pg (25-35) Mean Corpuscular Hemoglobin Concent 32g/dL (31-37) Red Cell Distribution Width 15.9% (11.5-14.5) Platelet Count 272x10^3/uL (140-400) Neutrophils (%) (Auto) 85% (31-73) Lymphocytes (%) (Auto) 10% (24-48) Monocytes (%) (Auto) 4% (0-9) Eosinophils (%) (Auto) 0% (0-3) Basophils (%) (Auto) 0% (0-3) Neutrophils # (Auto) 12.7x10^3uL (1.8-7.7) Lymphocytes # (Auto) 1.5x10^3/uL (1.0-4.8) Monocytes # (Auto) 0.6x10^3/uL (0.0-1.1) Eosinophils # (Auto) 0.0x10^3/uL (0.0-0.7) Basophils # (Auto) 0.0x10^3/uL (0.0-0.2) Sodium Level 141mmol/L (136-145) Potassium Level 3.8mmol/L (3.5-5.1) Chloride Level 106mmol/L (98-107) Carbon Dioxide Level 22mmol/L (21-32) Anion Gap 13 (6-14) Blood Urea Nitrogen 15mg/dL (7-20) Creatinine 0.6mg/dL (0.6-1.0) Estimated GFR (Cockcroft-Gault) 119.6 Glucose Level 261mg/dL (70-99) Calcium Level 9.5mg/dL (8.5-10.1) Laboratory Tests Test 01/15/17 11:46 01/15/17 16:53 01/15/17 21:18 01/16/17 03:50 Glucose (Fingerstick) 268mg/dL (70-99) 272mg/dL (70-99) 239mg/dL (70-99) White Blood Count 14.9x10^3/uL (4.0-11.0) Red Blood Count 5.16x10^6/uL (3.50-5.40) Hemoglobin 11.4g/dL (12.0-15.5) Hematocrit 36.1% (36.0-47.0) Mean Corpuscular Volume 70fL (79-100) Mean Corpuscular Hemoglobin 22pg (25-35) Mean Corpuscular Hemoglobin Concent 32g/dL (31-37) Red Cell Distribution Width 15.9% (11.5-14.5) Platelet Count 272x10^3/uL (140-400) Neutrophils (%) (Auto) 85% (31-73) Lymphocytes (%) (Auto) 10% (24-48) Monocytes (%) (Auto) 4% (0-9) Eosinophils (%) (Auto) 0% (0-3) Basophils (%) (Auto) 0% (0-3) Neutrophils # (Auto) 12.7x10^3uL (1.8-7.7) Lymphocytes # (Auto) 1.5x10^3/uL (1.0-4.8) Monocytes # (Auto) 0.6x10^3/uL (0.0-1.1) Eosinophils # (Auto) 0.0x10^3/uL (0.0-0.7) Basophils # (Auto) 0.0x10^3/uL (0.0-0.2) Sodium Level 141mmol/L (136-145) Potassium Level 3.8mmol/L (3.5-5.1) Chloride Level 106mmol/L (98-107) Carbon Dioxide Level 22mmol/L (21-32) Anion Gap 13 (6-14) Blood Urea Nitrogen 15mg/dL (7-20) Creatinine 0.6mg/dL (0.6-1.0) Estimated GFR (Cockcroft-Gault) 119.6 Glucose Level 261mg/dL (70-99) Calcium Level 9.5mg/dL (8.5-10.1) Test 01/16/17 07:05 Glucose (Fingerstick) 228mg/dL (70-99) Meds Current Medications Aspirin (Children'S Aspirin) 81 mg DAILYWBKFT PO ; Start 01/16/17 at 06:28 Bacitracin 61719 unit/Sodium Chloride 1,000 ml @ 1,000 mls/hr 1X PERIOP ONCE IRR ; Start 01/16/17 at 06:57; Stop 01/16/17 at 07:56; Status DC Bupivacaine HCl/ Epinephrine Bitart 30 ml 30 ml STK-MED ONCE .ROUTE ; Start at 06:48; Stop 01/16/17 at 06:49; Status DC Cefazolin Sodium/ Dextrose 50 ml @ 100 mls/hr 1X PREOP ONCE IV ; Start at 13:15; Stop 01/15/17 at 13:44; Status DC Cefazolin Sodium/ Dextrose (Ancef 2gm Premix) 50 ml @ 100 mls/hr 1X PREOP ONCE IV ; Start 01/16/17 at 06:00; Stop 01/16/17 at 06:29; Status DC Clonidine HCl 0.1 mg 0.1 mg PRN Q8HRS PRN PO ELEVATED BP, SEE COMMENTS; Start 01/15/17 at 11:00 Fentanyl Citrate (Fentanyl 2ml Vial) 25 mcg PRN Q5MIN PRN IV MILD PAIN; Start 01/16/17 at 07:00; Stop 01/16/17 at 18:00 Fentanyl Citrate (Fentanyl 2ml Vial) 50 mcg PRN Q5MIN PRN IV MODERATE PAIN; Start 01/16/17 at 07:00; Stop 01/16/17 at 18:00 Fentanyl Citrate (Fentanyl 2ml Vial) 100 mcg STK-MED ONCE .ROUTE ; Start at 08:04; Stop 01/16/17 at 08:05; Status DC Gabapentin 300 mg 300 mg TID PO Last administered on 01/15/17t 21:39; Start at 16:00 Gelatin (Gelfoam Size 100) 1 each STK-MED ONCE .ROUTE ; Start 01/16/17 at 06:47 ; Stop 01/16/17 at 06:48; Status DC Hydromorphone HCl (Dilaudid) 0.5 mg PRN Q10MIN PRN IV SEVERE PAIN, Second choice; Start 01/16/17 at 07:00; Stop 01/16/17 at 18:00 Ketorolac Tromethamine (Toradol For Or Only) 60 mg STK-MED ONCE .ROUTE ; Start 01/16/17 at 06:47; Stop 01/16/17 at 06:48; Status DC Lactated Ringer's (Iv Lactated Ringers) 1,000 ml @ 30 mls/hr Q24H IV ; Start at 07:00; Stop 01/16/17 at 18:59 Lidocaine HCl 2 ml 1X PRN PRN ID IV START; Start 01/16/17 at 07:00; Stop at 18:00 Lidocaine HCl 100 mg STK-MED ONCE .ROUTE ; Start 01/16/17 at 08:03; Stop at 08:04; Status DC Lisinopril (Prinivil) 10 mg DAILY PO Last administered on 01/15/17 11:30; Start 01/15/17 at 11:00 Magnesium Sulfate/ Dextrose (Magnesium Sulfate PREMIX 2GM) 50 ml @ 25 mls/hr 1X ONCE IV Last administered on 01/15/17 17:12; Start 01/15/17 at 13:30; Stop 01/15/17 at 15:29; Status DC Morphine Sulfate 1 mg 1 mg PRN Q10MIN PRN IV SEVERE PAIN; Start 01/16/17 at 07: 00; Stop 01/16/17 at 18:00 Ondansetron HCl (Zofran) 4 mg PRN Q6HRS PRN IV Nausea; Start 01/16/17 at 07:00 ; Stop 01/16/17 at 18:00 Ondansetron HCl (Zofran) 4 mg PRN Q8HRS PRN IV NAUSEA/VOMITING; Start 01/16/17 at 06:28 Prochlorperazine Edisylate (Compazine) 5 mg PACU PRN PRN IV NAUSEA; Start 01/16 at 07:00; Stop 01/16/17 at 18:00 Propofol 50 ml @ As Directed STK-MED ONCE IV ; Start 01/16/17 at 08:03; Stop at 08:04; Status DC Propofol (Diprivan) 20 ml @ As Directed STK-MED ONCE IV ; Start 01/16/17 at 08: 03; Stop 01/16/17 at 08:04; Status DC Remifentanil HCl (Ultiva) 2 mg STK-MED ONCE IV ; Start 01/16/17 at 08:04; Stop 01/16/17 at 08:05; Status DC Rocuronium [place] (Zemuron) 50 mg STK-MED ONCE .ROUTE ; Start 01/16/17 at 08:04 ; Stop 01/16/17 at 08:05; Status DC Sodium Chloride (Sodium Chloride) 50 ml STK-MED ONCE IJ ; Start 01/16/17 at 08: 03; Stop 01/16/17 at 08:04; Status DC Succinylcholine Chloride (Anectine) 200 mg STK-MED ONCE .ROUTE ; Start 01/16/17 at 08:04; Stop 01/16/17 at 08:05; Status DC Thrombin 20,000 unit STK-MED ONCE TP ; Start 01/16/17 at 06:46; Stop 01/16/17 at 06:47; Status DC Assessment Assessment IMPRESSION: 1. L hip pain post fall on home property 2. L lower leg instability with ambulation secondary to #8 3. malignant HTN 4. 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 diverticulosis 7. hypokalemia 8. 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 PLAN: LLE weakness/instability neuro consult Dr. 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 Cord hyperintensity may represent edema or myelomalacia. d/w Dr. Price. Neurosurgery consulted, surgery later today. Obtain cardiology pre op clearance To surgery-d/w BRENDA Patino reviewed. Surgery ok if anesthesia agrees. malignant HTN resume home meds Hydralazine 10mg IV prn SBP >180 HTN + DM =begin ASA 81mg daily SBP 160s-begin Lisinopril 10mg daily 08/17 Accel HTN-BP 175/81-assess post surgery L Hip pain post falll XR L hip negative Dr. Price consult L knee instability- hypokalemia Admit K 3.4 01/16 3.8 01/15 Mg 1.6 replace Mg SO4 2 gm IV 01/16- recheck in AM, in surgery KCL 20meq 01/14 recheck 01/15 DM II with hyperglycemia/neuropathy-steroid induced hyperglycemia FSBS/SSI low intensity continue metformin BS 228-272 hyperlipidemia on statin leukocytosis Admit WBC 7.1 01/16 14.9 steroid induced leukocytosis DVT/GI prophylaxis SCD/COLLEEN Pepcid For more details regarding further plans, please refer to the orders. Plan Plan For further plan of care please refer to the orders. SHAHRAM POLO MD 01/16/17 1047: IM PROGRESS NOTES- Assessment Assessment Chart reviewed and plan of care formulated. Discussed with, reviewed and agree with O AND M SUPERVISOR's notes, plan of care and orders with modifications as necessary. Patient getting surgery. For more details regarding further plans, please refer to the orders. BRENDA RANDOLPH APRN Jan 16, 2017 08:25 SHAHRAM OPLO MD Jan 16, 2017 10:47
[2017-01-16] MEDS: BACITRACIN 50,000 UNIT in IV NORMAL SALINE 1000ML BAG 1,000 ML IRR ONE ×2 (08:37→09:59)
[2017-01-16] MEDS: METOPROLOL TART IMMED RELEASE 50 MG TABLET PO SCH ×2 (09:00→19:54)
[2017-01-16] MEDS: GABAPENTIN 100 MG CAPSULE. PO SCH ×3 (09:00→19:50)
[2017-01-16] MEDS: CHOLECALCIFEROL (VITAMIN D3) 1,000 UNIT TABLET PO SCH (09:00)
[2017-01-16] MEDS ORDERED: DEXAMETHASONE SOD PHOS 20 MG/5 ML VIAL. ONE (09:37)
[2017-01-16] MEDS ORDERED: DESFLURANE 61 TO 120 MINUTES IH ONE (09:37)
[2017-01-16] MEDS ORDERED: EPHEDRINE PF IN SALINE 50 MG/5 ML DISP.SYRIN. IV ONE (09:44)
[2017-01-16] MEDS ORDERED: ONDANSETRON PF 4 MG/2 ML VIAL. ONE (09:58)
[2017-01-16] MEDS: FENTANYL PF 100 MCG/2 ML VIAL. IV PRN ×3 (12:39→13:59)
[2017-01-16 13:31] LABS: PLT ESTIMATE ADEQUATE (ADEQUATE)
[2017-01-16 13:32] LABS: HYPOCHROMIA MOD; MICROCYTOSIS MARKED
--- NOTE | 2017-01-16 13:47 | PDOC ---
PROGRESS NOTES Assessment Assessment Left LE weakness x 3 months, worse for 1 week. Left leg pain. 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 Degenerative spine and disc disease. DM HTN HLD Diverticulosis. Obesity Falls. No evidence of acute CVA this time. RECOMMENDATIONS/PLAN: Continue Neurontin 300 mg tid. Decadron for short term use. NS consulted and surgery performed on 01/16/17. Treat underlying medical diseases. OT/PT. Discussed with her at bedside on 01/15. L-spine MRI, performed. HISTORY OF THE PRESENT ILLNESS: 71-y-old AA female patient with above medical diseases developed symptoms of weakness in her left LE for about 1 week. But on further questioning, she said she has been having left LE weakness since 09/2016 and her weakness got worse for about 1 weeks before she came to [facility] this time. Her weakness progress and she was eventually unable to mobile. She also has symptoms of pain in lateral aspect of her left LE from hip down to knee. No symptoms of urinary or bowel dysfunction. Her UE and cranial nerves were not involved. PAST MEDICAL HISTORY: Please see above. PAST SURGERY HISTORY: Hysterectomy, Knee surgery ALLERGY: Reviewed. MEDICATIONS: Refer to [facility] FAMILY HISTORY: Her mother had colon cancer. Her father had lung cancer. SOCIAL HISTORY: Lives at home. Denies current smoking, drinking, and illicit drug use. REVIEW OF SYSTEMS: Constitutional: No malnutrition, weight loss, cachexia. Head: No traumatic brain or head injury. Skin: No edema, or rash. Ear: No infection. Eyes: No vision loss or color blindness. Nose: No bleeding or purulent discharges. Hearing: No hearing decrease. Neck: Pain. Breast: No history of cancer, masses,or discharges. Cardiac: HTN, HLD. Pulmonary: No COPD. GI: No GI ulcer, GI bleeding. Urinary/genital: UTI. Endocrinologic: Diabetes Mellitus, obesity. Skeletomuscular: No muscular atrophy, deformity.. Neurological: see HP. Psychiatric: Denies drug use/abuse. Otherwise, not [id number] review of systems. PHYSICAL EXAMINATION: General appearance is in subacute distress. HEENT: Normocephalic and nontraumatic. Eyes, nose, ears, and throat are unremarkable. Neck is supple. No lymphadenopathy. No bruits are heard over the carotid artery. No crepitus. Cardiovascular: S1, S2, regular rate and rhythm. Pulmonary: Clear to auscultation bilaterally. Abdomen: Bowel sounds are positive. Abdomen is soft, nontender, and nondistended. Extremities: No rash, lesions, or edema. Restriction of range of motion in left LE. NEUROLOGICAL EXAMINATION: Alert Oriented to time, place and person. PERRL. EOMI. CN: no focal findings. Muscle tone: within normal. Muscle strength: 5 right UE and LE and left UE, 3+ left LE. DTR: 2- UE, 1 at knee. Plantar reflex: Flexor response bilaterally Gait: Unable to walk at this time. Sensory exam: No acute findings. No obvious cerebellar signs elicited. F-T-N test fine. Objective Objective Vital Signs Date Time Temp Pulse Resp B/P Pulse Ox O2 Delivery O2 Flow Rate FiO2 01/16/17 13:30 83 16 147/82 Room Air 01/16/17 13:15 98.5 93 98.5 01/16/17 12:21 10 Intake and Output 01/16/17 07:00 Intake Total 700 ml Output Total 600 ml Balance 100 ml Intake Oral 700 ml Output Urine Total 600 ml # Voids 1 Vitals Signs Vitals VS - Last 72 Hours, by Label Date Time Temp Pulse Resp B/P Pulse Ox O2 Delivery O2 Flow Rate FiO2 01/16/17 13:30 83 16 147/82 Room Air 01/16/17 13:15 98.5 85 16 158/92 93 Room Air 98.5 01/16/17 13:01 15 92 Room Air 01/16/17 12:51 97.5 94 15 127/61 93 97.5 01/16/17 12:39 15 93 Room Air 01/16/17 12:36 97.5 94 16 141/61 94 97.5 01/16/17 12:21 97.5 96 13 159/66 100 Simple Mask 10 97.5 01/16/17 12:06 Room Air 01/16/17 12:06 97.5 103 13 179/80 100 Simple Mask 10 97.5 01/16/17 07:50 98.1 66 16 175/81 97 Room Air 98.1 01/16/17 07:00 97.9 64 18 154/69 97 Room Air 97.9 01/16/17 03:40 98.2 63 18 149/63 96 Room Air 98.2 01/15/17 23:16 97.5 65 20 141/58 93 Room Air 97.5 01/15/17 21:40 83 157/71 01/15/17 20:00 Room Air 01/15/17 19:55 97.7 83 20 157/71 98 Room Air 97.7 01/15/17 15:00 97.9 84 18 186/84 93 Room Air 97.9 01/15/17 11:30 70 165/74 01/15/17 11:00 98.1 73 18 170/79 94 Room Air 98.1 01/15/17 08:28 70 165/74 01/15/17 08:00 Room Air 01/15/17 07:00 97.9 70 18 165/74 96 Room Air 97.9 Laboratory Laboratory Laboratory Tests Test 01/15/17 16:53 01/15/17 21:18 01/16/17 03:50 01/16/17 07:05 Glucose (Fingerstick) 272mg/dL (70-99) 239mg/dL (70-99) 228mg/dL (70-99) White Blood Count 14.9x10^3/uL (4.0-11.0) Red Blood Count 5.16x10^6/uL (3.50-5.40) Hemoglobin 11.4g/dL (12.0-15.5) Hematocrit 36.1% (36.0-47.0) Mean Corpuscular Volume 70fL (79-100) Mean Corpuscular Hemoglobin 22pg (25-35) Mean Corpuscular Hemoglobin Concent 32g/dL (31-37) Red Cell Distribution Width 15.9% (11.5-14.5) Platelet Count 272x10^3/uL (140-400) Neutrophils (%) (Auto) 85% (31-73) Lymphocytes (%) (Auto) 10% (24-48) Monocytes (%) (Auto) 4% (0-9) Eosinophils (%) (Auto) 0% (0-3) Basophils (%) (Auto) 0% (0-3) Neutrophils # (Auto) 12.7x10^3uL (1.8-7.7) Lymphocytes # (Auto) 1.5x10^3/uL (1.0-4.8) Monocytes # (Auto) 0.6x10^3/uL (0.0-1.1) Eosinophils # (Auto) 0.0x10^3/uL (0.0-0.7) Basophils # (Auto) 0.0x10^3/uL (0.0-0.2) Segmented Neutrophils % 90% (35-66) Lymphocytes % 8% (24-48) Monocytes % 2% (0-10) Platelet Estimate Adequate (ADEQUATE) Large Platelets Occ Hypochromasia Mod Microcytosis Marked Sodium Level 141mmol/L (136-145) Potassium Level 3.8mmol/L (3.5-5.1) Chloride Level 106mmol/L (98-107) Carbon Dioxide Level 22mmol/L (21-32) Anion Gap 13 (6-14) Blood Urea Nitrogen 15mg/dL (7-20) Creatinine 0.6mg/dL (0.6-1.0) Estimated GFR (Cockcroft-Gault) 119.6 Glucose Level 261mg/dL (70-99) Calcium Level 9.5mg/dL (8.5-10.1) Test 01/16/17 12:17 Glucose (Fingerstick) 83mg/dL (70-99) Medication Medications Current Medications Aspirin (Children'S Aspirin) 81 mg DAILYWBKFT PO ; Start 01/16/17 at 06:28 Bacitracin 39886 unit/Sodium Chloride 1,000 ml @ 1,000 mls/hr 1X PERIOP ONCE IRR Last administered on 01/16/17 09:59; Start 01/16/17 at 06:57; Stop at 07:56; Status DC Bupivacaine HCl/ Epinephrine Bitart 30 ml 30 ml STK-MED ONCE .ROUTE Last administered on 01/16/17 09:59; Start 01/16/17 at 06:48; Stop 01/16/17 at 06:49 ; Status DC Cefazolin Sodium/ Dextrose (Ancef 2gm Premix) 50 ml @ 100 mls/hr 1X PREOP ONCE IV ; Start 01/16/17 at 06:00; Stop 01/16/17 at 06:29; Status DC Desflurane (Suprane) 60 ml STK-MED ONCE IH ; Start 01/16/17 at 09:37; Stop 01/16 at 09:38; Status DC Dexamethasone Sodium Phosphate (Decadron) 20 mg STK-MED ONCE .ROUTE ; Start at 09:37; Stop 01/16/17 at 09:38; Status DC Ephedrine Sulfate 50 mg STK-MED ONCE IV ; Start 01/16/17 at 09:44; Stop at 09:45; Status DC Fentanyl Citrate (Fentanyl 2ml Vial) 25 mcg PRN Q5MIN PRN IV MILD PAIN; Start 01/16/17 at 07:00; Stop 01/16/17 at 18:00 Fentanyl Citrate (Fentanyl 2ml Vial) 50 mcg PRN Q5MIN PRN IV MODERATE PAIN Last administered on 01/16/17 13:01; Start 01/16/17 at 07:00; Stop 01/16/17 at 18:00 Fentanyl Citrate (Fentanyl 2ml Vial) 100 mcg STK-MED ONCE .ROUTE ; Start at 08:04; Stop 01/16/17 at 08:05; Status DC Gabapentin 300 mg 300 mg TID PO Last administered on 01/15/17 21:39; Start at 16:00 Gelatin (Gelfoam Size 100) 1 each STK-MED ONCE .ROUTE Last administered on 09:59; Start 01/16/17 at 06:47; Stop 01/16/17 at 06:48; Status DC Hydromorphone HCl (Dilaudid) 0.5 mg PRN Q10MIN PRN IV SEVERE PAIN, Second choice; Start 01/16/17 at 07:00; Stop 01/16/17 at 18:00 Ketorolac Tromethamine (Toradol For Or Only) 60 mg STK-MED ONCE .ROUTE Last administered on 01/16/17 09:59; Start 01/16/17 at 06:47; Stop 01/16/17 at 06:48 ; Status DC Lactated Ringer's (Iv Lactated Ringers) 1,000 ml @ 30 mls/hr Q24H IV Last administered on 01/16/17 08:30; Start 01/16/17 at 07:00; Stop 01/16/17 at 18:59 Lidocaine HCl 2 ml 1X PRN PRN ID IV START; Start 01/16/17 at 07:00; Stop at 18:00 Lidocaine HCl 100 mg STK-MED ONCE .ROUTE ; Start 01/16/17 at 08:03; Stop at 08:04; Status DC Morphine Sulfate 1 mg 1 mg PRN Q10MIN PRN IV SEVERE PAIN; Start 01/16/17 at 07: 00; Stop 01/16/17 at 18:00 Ondansetron HCl (Zofran) 4 mg PRN Q6HRS PRN IV Nausea; Start 01/16/17 at 07:00 ; Stop 01/16/17 at 18:00 Ondansetron HCl (Zofran) 4 mg PRN Q8HRS PRN IV NAUSEA/VOMITING; Start 01/16/17 at 06:28 Ondansetron HCl 4 mg 4 mg STK-MED ONCE .ROUTE ; Start 01/16/17 at 09:58; Stop at 09:59; Status DC Prochlorperazine Edisylate (Compazine) 5 mg PACU PRN PRN IV NAUSEA; Start 01/16 at 07:00; Stop 01/16/17 at 18:00 Propofol 50 ml @ As Directed STK-MED ONCE IV ; Start 01/16/17 at 08:03; Stop at 08:04; Status DC Propofol (Diprivan) 20 ml @ As Directed STK-MED ONCE IV ; Start 01/16/17 at 08: 03; Stop 01/16/17 at 08:04; Status DC Propofol (Diprivan) 50 ml @ As Directed STK-MED ONCE IV ; Start 01/16/17 at 10: 41; Stop 01/16/17 at 10:42; Status DC Remifentanil HCl (Ultiva) 2 mg STK-MED ONCE IV ; Start 01/16/17 at 08:04; Stop 01/16/17 at 08:05; Status DC Rocuronium [place] (Zemuron) 50 mg STK-MED ONCE .ROUTE ; Start 01/16/17 at 08:04 ; Stop 01/16/17 at 08:05; Status DC Sodium Chloride (Sodium Chloride) 50 ml STK-MED ONCE IJ ; Start 01/16/17 at 08: 03; Stop 01/16/17 at 08:04; Status DC Succinylcholine Chloride (Anectine) 200 mg STK-MED ONCE .ROUTE ; Start 01/16/17 at 08:04; Stop 01/16/17 at 08:05; Status DC Thrombin 20,000 unit STK-MED ONCE TP Last administered on 01/16/17t 09:59; Start 01/16/17 at 06:46; Stop 01/16/17 at 06:47; Status DC Comment Review of Relevant I have reviewed the following items alberto (where applicable) has been applied. GLORIA WERNER MD Jan 16, 2017 13:47
[2017-01-16] MEDS ORDERED: FAMOTIDINE 20 MG TABLET. ONE ×2 (13:51→19:05)
[2017-01-16] MEDS: FAMOTIDINE 20 MG TABLET. PO SCH ×2 (13:56→19:51)
[2017-01-16] MEDS: METFORMIN 500 MG TABLET. PO SCH ×2 (13:56→16:53)
[2017-01-16] MEDS: LISINOPRIL 10 MG TABLET PO SCH (13:57)
--- NOTE | 2017-01-16 19:11 | PDOC ---
PROGRESS NOTES Subjective Subjective She feels better. Objective Objective Vital Signs Date Time Temp Pulse Resp B/P Pulse Ox O2 Delivery O2 Flow Rate FiO2 01/16/17 19:02 97.7 81 18 129/75 96 Room Air 97.7 01/16/17 16:43 96.0 Intake and Output 01/16/17 07:00 Intake Total 700 ml Output Total 600 ml Balance 100 ml Intake Oral 700 ml Output Urine Total 600 ml # Voids 1 Physical Exam Physical Exam She is sitting in bedside chair and comfortable and she did walk with physical therapy with roller walker with some ataxic gait secondary to right hip flexor muscle weakness. Assessment Assessment Problems Medical Problems: (1) Hyperglycemia Status: Acute (2) Hypertension Status: Acute (3) Lower extremity weakness Status: Acute (4) Lower extremity weakness Status: Acute Plan Plan of Long Term or transfer to rehab unit if needed for a short stay. Comment Review of Relevant I have reviewed the following items alberto (where applicable) has been applied. Labs Laboratory Tests Test 01/14/17 20:47 01/15/17 04:16 01/15/17 07:32 01/15/17 11:46 Glucose (Fingerstick) 166mg/dL (70-99) 256mg/dL (70-99) 268mg/dL (70-99) White Blood Count 9.6x10^3/uL (4.0-11.0) Red Blood Count 5.61x10^6/uL (3.50-5.40) Hemoglobin 12.4g/dL (12.0-15.5) Hematocrit 39.2% (36.0-47.0) Mean Corpuscular Volume 70fL (79-100) Mean Corpuscular Hemoglobin 22pg (25-35) Mean Corpuscular Hemoglobin Concent 32g/dL (31-37) Red Cell Distribution Width 15.5% (11.5-14.5) Platelet Count 276x10^3/uL (140-400) Neutrophils (%) (Auto) 89% (31-73) Lymphocytes (%) (Auto) 10% (24-48) Monocytes (%) (Auto) 1% (0-9) Eosinophils (%) (Auto) 0% (0-3) Basophils (%) (Auto) 1% (0-3) Neutrophils # (Auto) 8.5x10^3uL (1.8-7.7) Lymphocytes # (Auto) 1.0x10^3/uL (1.0-4.8) Monocytes # (Auto) 0.1x10^3/uL (0.0-1.1) Eosinophils # (Auto) 0.0x10^3/uL (0.0-0.7) Basophils # (Auto) 0.1x10^3/uL (0.0-0.2) Segmented Neutrophils % 92% (35-66) Lymphocytes % 8% (24-48) Platelet Estimate Adequate (ADEQUATE) Sodium Level 140mmol/L (136-145) Potassium Level 4.2mmol/L (3.5-5.1) Chloride Level 105mmol/L (98-107) Carbon Dioxide Level 23mmol/L (21-32) Anion Gap 12 (6-14) Blood Urea Nitrogen 10mg/dL (7-20) Creatinine 0.7mg/dL (0.6-1.0) Estimated GFR (Cockcroft-Gault) 100.1 Glucose Level 270mg/dL (70-99) Calcium Level 9.7mg/dL (8.5-10.1) Magnesium Level 1.6mg/dL (1.8-2.4) Test 01/15/17 16:53 01/15/17 21:18 01/16/17 03:50 01/16/17 07:05 Glucose (Fingerstick) 272mg/dL (70-99) 239mg/dL (70-99) 228mg/dL (70-99) White Blood Count 14.9x10^3/uL (4.0-11.0) Red Blood Count 5.16x10^6/uL (3.50-5.40) Hemoglobin 11.4g/dL (12.0-15.5) Hematocrit 36.1% (36.0-47.0) Mean Corpuscular Volume 70fL (79-100) Mean Corpuscular Hemoglobin 22pg (25-35) Mean Corpuscular Hemoglobin Concent 32g/dL (31-37) Red Cell Distribution Width 15.9% (11.5-14.5) Platelet Count 272x10^3/uL (140-400) Neutrophils (%) (Auto) 85% (31-73) Lymphocytes (%) (Auto) 10% (24-48) Monocytes (%) (Auto) 4% (0-9) Eosinophils (%) (Auto) 0% (0-3) Basophils (%) (Auto) 0% (0-3) Neutrophils # (Auto) 12.7x10^3uL (1.8-7.7) Lymphocytes # (Auto) 1.5x10^3/uL (1.0-4.8) Monocytes # (Auto) 0.6x10^3/uL (0.0-1.1) Eosinophils # (Auto) 0.0x10^3/uL (0.0-0.7) Basophils # (Auto) 0.0x10^3/uL (0.0-0.2) Segmented Neutrophils % 90% (35-66) Lymphocytes % 8% (24-48) Monocytes % 2% (0-10) Platelet Estimate Adequate (ADEQUATE) Large Platelets Occ Hypochromasia Mod Microcytosis Marked Sodium Level 141mmol/L (136-145) Potassium Level 3.8mmol/L (3.5-5.1) Chloride Level 106mmol/L (98-107) Carbon Dioxide Level 22mmol/L (21-32) Anion Gap 13 (6-14) Blood Urea Nitrogen 15mg/dL (7-20) Creatinine 0.6mg/dL (0.6-1.0) Estimated GFR (Cockcroft-Gault) 119.6 Glucose Level 261mg/dL (70-99) Calcium Level 9.5mg/dL (8.5-10.1) Test 01/16/17 12:17 01/16/17 16:10 Glucose (Fingerstick) 83mg/dL (70-99) 305mg/dL (70-99) Laboratory Tests Test 01/15/17 21:18 01/16/17 03:50 01/16/17 07:05 01/16/17 12:17 Glucose (Fingerstick) 239mg/dL (70-99) 228mg/dL (70-99) 83mg/dL (70-99) White Blood Count 14.9x10^3/uL (4.0-11.0) Red Blood Count 5.16x10^6/uL (3.50-5.40) Hemoglobin 11.4g/dL (12.0-15.5) Hematocrit 36.1% (36.0-47.0) Mean Corpuscular Volume 70fL (79-100) Mean Corpuscular Hemoglobin 22pg (25-35) Mean Corpuscular Hemoglobin Concent 32g/dL (31-37) Red Cell Distribution Width 15.9% (11.5-14.5) Platelet Count 272x10^3/uL (140-400) Neutrophils (%) (Auto) 85% (31-73) Lymphocytes (%) (Auto) 10% (24-48) Monocytes (%) (Auto) 4% (0-9) Eosinophils (%) (Auto) 0% (0-3) Basophils (%) (Auto) 0% (0-3) Neutrophils # (Auto) 12.7x10^3uL (1.8-7.7) Lymphocytes # (Auto) 1.5x10^3/uL (1.0-4.8) Monocytes # (Auto) 0.6x10^3/uL (0.0-1.1) Eosinophils # (Auto) 0.0x10^3/uL (0.0-0.7) Basophils # (Auto) 0.0x10^3/uL (0.0-0.2) Segmented Neutrophils % 90% (35-66) Lymphocytes % 8% (24-48) Monocytes % 2% (0-10) Platelet Estimate Adequate (ADEQUATE) Large Platelets Occ Hypochromasia Mod Microcytosis Marked Sodium Level 141mmol/L (136-145) Potassium Level 3.8mmol/L (3.5-5.1) Chloride Level 106mmol/L (98-107) Carbon Dioxide Level 22mmol/L (21-32) Anion Gap 13 (6-14) Blood Urea Nitrogen 15mg/dL (7-20) Creatinine 0.6mg/dL (0.6-1.0) Estimated GFR (Cockcroft-Gault) 119.6 Glucose Level 261mg/dL (70-99) Calcium Level 9.5mg/dL (8.5-10.1) Test 01/16/17 16:10 Glucose (Fingerstick) 305mg/dL (70-99) Medications Current Medications Ondansetron HCl (Zofran) 4 mg PRN Q8HRS PRN IV NAUSEA/VOMITING; Start 01/14/17 at 08:00; Stop 01/14/17 at 08:44; Status DC Morphine Sulfate 2 mg PRN Q2HR PRN IV PAIN; Start 01/14/17 at 08:00; Stop 01/14 at 08:44; Status DC Acetaminophen (Tylenol) 650 mg PRN Q4HRS PRN PO FEVER; Start 01/14/17 at 08:00 ; Stop 01/14/17 at 08:44; Status DC Aspirin (Linette Aspirin) 325 mg 1X ONCE PO Last administered on 01/14/17 08:34 ; Start 01/14/17 at 08:00; Stop 01/14/17 at 08:01; Status DC Morphine Sulfate 2 mg PRN Q2HR PRN IV PAIN; Start 01/14/17 at 08:45 Ondansetron HCl (Zofran) 4 mg PRN Q8HRS PRN IV NAUSEA/VOMITING; Start 01/14/17 at 08:45; Stop 01/16/17 at 06:28; Status DC Acetaminophen/ Hydrocodone Bitart (Lortab 5/325) 1 tab PRN Q6HRS PRN PO PAIN; Start 01/14/17 at 08:45; Stop 01/14/17 at 09:26; Status DC Acetaminophen (Tylenol) 650 mg PRN Q6HRS PRN PEG MILD PAIN / TEMP; Start at 08:45 Aspirin (Children'S Aspirin) 81 mg DAILYWBKFT PO Last administered on 08:27; Start 01/15/17 at 08:00; Stop 01/16/17 at 06:28; Status DC Potassium Chloride (Klor-Con) 20 meq 1X ONCE PO Last administered on 10:06; Start 01/14/17 at 08:45; Stop 01/14/17 at 08:46; Status DC Hydralazine HCl (Apresoline) 10 mg PRN Q4HRS PRN IVP ELEVATED BP, SEE COMMENTS Last administered on 01/14/17 09:31; Start 01/14/17 at 08:45 Metformin HCl (Glucophage) 500 mg BIDWMEALS PO Last administered on 01/16/17 16:53; Start 01/14/17 at 10:00 Metoprolol Tartrate (Lopressor) 100 mg BID PO Last administered on 01/15/17 21 :40; Start 01/14/17 at 10:00 Vitamin D (Vitamin D3) 1,000 unit DAILY PO Last administered on 01/15/17 08:27 ; Start 01/14/17 at 10:00 Cetirizine HCl (Zyrtec) 10 mg HS PO Last administered on 01/15/17 21:39; Start 01/14/17 at 21:00 Acetaminophen/ Hydrocodone Bitart (Lortab 7.5/325) 1 tab PRN Q6HRS PRN PO PAIN ; Start 01/14/17 at 09:30 Insulin Aspart (Novolog) TIDAC SQ Last administered on 01/16/17 16:57; Start 01/14/17 at 11:30 Famotidine (Pepcid) 20 mg BID PO Last administered on 01/16/17 13:56; Start at 10:00 Dexamethasone Sodium Phosphate (Decadron) 4 mg Q6HRS IV Last administered on 16:54; Start 01/14/17 at 19:00 Gabapentin (Neurontin) 100 mg TID PO Last administered on 01/15/17 08:27; Start 01/14/17 at 21:00; Stop 01/15/17 at 15:51; Status DC Lisinopril (Prinivil) 10 mg DAILY PO Last administered on 01/16/17 13:57; Start 01/15/17 at 11:00 Clonidine HCl 0.1 mg 0.1 mg PRN Q8HRS PRN PO ELEVATED BP, SEE COMMENTS; Start 01/15/17 at 11:00 Cefazolin Sodium/ Dextrose 50 ml @ 100 mls/hr 1X PREOP ONCE IV Last administered on 01/15/17 09:40; Start 01/15/17 at 13:15; Stop 01/15/17 at 13:44 ; Status DC Magnesium Sulfate/ Dextrose (Magnesium Sulfate PREMIX 2GM) 50 ml @ 25 mls/hr 1X ONCE IV Last administered on 01/15/17 17:12; Start 01/15/17 at 13:30; Stop 01/15/17 at 15:29; Status DC Ondansetron HCl (Zofran) 4 mg PRN Q6HRS PRN IV Nausea; Start 01/16/17 at 07:00 ; Stop 01/16/17 at 18:14; Status DC Fentanyl Citrate (Fentanyl 2ml Vial) 25 mcg PRN Q5MIN PRN IV MILD PAIN; Start 01/16/17 at 07:00; Stop 01/16/17 at 18:14; Status DC Fentanyl Citrate (Fentanyl 2ml Vial) 50 mcg PRN Q5MIN PRN IV MODERATE PAIN Last administered on 01/16/17 13:59; Start 01/16/17 at 07:00; Stop 01/16/17 at 18:14; Status DC Morphine Sulfate 1 mg 1 mg PRN Q10MIN PRN IV SEVERE PAIN; Start 01/16/17 at 07: 00; Stop 01/16/17 at 18:00; Status DC Lactated Ringer's (Iv Lactated Ringers) 1,000 ml @ 30 mls/hr Q24H IV Last administered on 01/16/17 08:30; Start 01/16/17 at 07:00; Stop 01/16/17 at 18:59 ; Status DC Lidocaine HCl 2 ml 1X PRN PRN ID IV START; Start 01/16/17 at 07:00; Stop at 18:00; Status DC Hydromorphone HCl (Dilaudid) 0.5 mg PRN Q10MIN PRN IV SEVERE PAIN, Second choice; Start 01/16/17 at 07:00; Stop 01/16/17 at 18:14; Status DC Prochlorperazine Edisylate (Compazine) 5 mg PACU PRN PRN IV NAUSEA; Start 01/16 at 07:00; Stop 01/16/17 at 18:00; Status DC Gabapentin 300 mg 300 mg TID PO Last administered on 01/16/17 13:56; Start at 16:00 Cefazolin Sodium/ Dextrose (Ancef 2gm Premix) 50 ml @ 100 mls/hr 1X PREOP ONCE IV ; Start 01/16/17 at 06:00; Stop 01/16/17 at 06:29; Status DC Ondansetron HCl (Zofran) 4 mg PRN Q8HRS PRN IV NAUSEA/VOMITING; Start 01/16/17 at 06:28 Aspirin (Children'S Aspirin) 81 mg DAILYWBKFT PO ; Start 01/16/17 at 06:28 Thrombin 20,000 unit STK-MED ONCE TP Last administered on 01/16/17 09:59; Start 01/16/17 at 06:46; Stop 01/16/17 at 06:47; Status DC Gelatin (Gelfoam Size 100) 1 each STK-MED ONCE .ROUTE Last administered on 09:59; Start 01/16/17 at 06:47; Stop 01/16/17 at 06:48; Status DC Ketorolac Tromethamine (Toradol For Or Only) 60 mg STK-MED ONCE .ROUTE Last administered on 01/16/17 09:59; Start 01/16/17 at 06:47; Stop 01/16/17 at 06:48 ; Status DC Bupivacaine HCl/ Epinephrine Bitart 30 ml 30 ml STK-MED ONCE .ROUTE Last administered on 01/16/17 09:59; Start 01/16/17 at 06:48; Stop 01/16/17 at 06:49 ; Status DC Bacitracin 98198 unit/Sodium Chloride 1,000 ml @ 1,000 mls/hr 1X PERIOP ONCE IRR Last administered on 01/16/17 09:59; Start 01/16/17 at 06:57; Stop at 07:56; Status DC Propofol 50 ml @ As Directed STK-MED ONCE IV ; Start 01/16/17 at 08:03; Stop at 08:04; Status DC Propofol (Diprivan) 20 ml @ As Directed STK-MED ONCE IV ; Start 01/16/17 at 08: 03; Stop 01/16/17 at 08:04; Status DC Lidocaine HCl 100 mg STK-MED ONCE .ROUTE ; Start 01/16/17 at 08:03; Stop at 08:04; Status DC Sodium Chloride (Sodium Chloride) 50 ml STK-MED ONCE IJ ; Start 01/16/17 at 08: 03; Stop 01/16/17 at 08:04; Status DC Fentanyl Citrate (Fentanyl 2ml Vial) 100 mcg STK-MED ONCE .ROUTE ; Start at 08:04; Stop 01/16/17 at 08:05; Status DC Remifentanil HCl (Ultiva) 2 mg STK-MED ONCE IV ; Start 01/16/17 at 08:04; Stop 01/16/17 at 08:05; Status DC Succinylcholine Chloride (Anectine) 200 mg STK-MED ONCE .ROUTE ; Start 01/16/17 at 08:04; Stop 01/16/17 at 08:05; Status DC Rocuronium [place] (Zemuron) 50 mg STK-MED ONCE .ROUTE ; Start 01/16/17 at 08:04 ; Stop 01/16/17 at 08:05; Status DC Dexamethasone Sodium Phosphate (Decadron) 20 mg STK-MED ONCE .ROUTE ; Start at 09:37; Stop 01/16/17 at 09:38; Status DC Desflurane (Suprane) 60 ml STK-MED ONCE IH ; Start 01/16/17 at 09:37; Stop 01/16 at 09:38; Status DC Ephedrine Sulfate 50 mg STK-MED ONCE IV ; Start 01/16/17 at 09:44; Stop at 09:45; Status DC Ondansetron HCl 4 mg 4 mg STK-MED ONCE .ROUTE ; Start 01/16/17 at 09:58; Stop at 09:59; Status DC Propofol (Diprivan) 50 ml @ As Directed STK-MED ONCE IV ; Start 01/16/17 at 10: 41; Stop 01/16/17 at 10:42; Status DC Famotidine (Pepcid) 20 mg STK-MED ONCE .ROUTE ; Start 01/16/17 at 13:51; Stop at 13:52; Status DC Famotidine (Pepcid) 20 mg STK-MED ONCE .ROUTE ; Start 01/16/17 at 19:05; Stop at 19:06; Status DC Active Scripts Active Reported Zyrtec (Cetirizine Hcl) 10 Mg Tablet 10 Mg PO HS Vitamin D3 (Cholecalciferol (Vitamin D3)) 1,000 Unit Tablet 1 Tab PO DAILY Metoprolol Tartrate 100 Mg Tablet 200 Mg PO BID Metformin Hcl 500 Mg Tablet 500 Mg PO BIDWMEALS Hydrocodone-Apap 7.5-325 (Hydrocodone Bit/Acetaminophen) 1 Each Tablet 1 Tab PO PRN Q6HRS PRN Multivitamins (Multivitamin) 1 Each Tablet 1 Tab PO DAILY Vitals/I & O Vital Sign - Last 24 Hours 01/15/17 01/15/17 01/15/17 01/15/17 19:55 20:00 21:40 23:16 Temp 97.7 97.5 97.7 97.5 Pulse 83 83 65 Resp 20 20 B/P 157/71 157/71 141/58 Pulse Ox 98 93 O2 Delivery Room Air Room Air Room Air 01/16/17 01/16/17 01/16/17 01/16/17 03:40 07:00 07:50 12:06 Temp 98.2 97.9 98.1 97.5 98.2 97.9 98.1 97.5 Pulse 63 64 66 103 Resp 18 18 16 13 B/P 149/63 154/69 175/81 179/80 Pulse Ox 96 97 97 100 O2 Delivery Room Air Room Air Room Air Simple Mask O2 Flow Rate 10 01/16/17 01/16/17 01/16/17 01/16/17 12:06 12:21 12:36 12:39 Temp 97.5 97.5 97.5 97.5 Pulse 96 94 Resp 13 16 15 B/P 159/66 141/61 Pulse Ox 100 94 93 O2 Delivery Room Air Simple Mask Room Air O2 Flow Rate 10 01/16/17 01/16/17 01/16/17 01/16/17 12:51 13:01 13:15 13:30 Temp 97.5 98.5 97.5 98.5 Pulse 94 85 83 Resp 15 15 16 16 B/P 127/61 158/92 147/82 Pulse Ox 93 92 93 O2 Delivery Room Air Room Air Room Air 01/16/17 01/16/17 01/16/17 01/16/17 13:57 13:59 14:00 14:05 Temp 98.5 98.5 Pulse 101 97 Resp 20 16 B/P 122/82 138/78 Pulse Ox 93 O2 Delivery Room Air Room Air 01/16/17 01/16/17 01/16/17 01/16/17 14:30 15:00 15:24 16:00 Pulse 94 93 93 Resp 18 16 16 16 B/P 157/77 149/69 136/84 149/74 O2 Delivery Room Air Room Air Room Air Room Air 01/16/17 01/16/17 16:43 19:02 Temp 97.7 97.7 Pulse 94 81 Resp 16 18 B/P 132/87 129/75 Pulse Ox 96 O2 Delivery Room Air Room Air O2 Flow Rate 96.0 Intake and Output 01/15/17 01/15/17 01/16/17 15:00 23:00 07:00 Intake Total 500 ml 200 ml Output Total 600 ml Balance -100 ml 200 ml TORRES FARRELL MD Jan 16, 2017 19:11
[2017-01-16] MEDS: CETIRIZINE HCL 10 MG TABLET. PO SCH (19:51)
[2017-01-17] MEDS: DEXAMETHASONE SOD PHOS 4 MG/ML VIAL IV SCH ×3 (00:16→11:33)
[2017-01-17 03:33] VITALS: BP 148/90
[2017-01-17] MEDS: HYDROCODONE/APAP 7.5/325MG TABLET. PO PRN ×3 (03:35→14:04)
[2017-01-17 04:58] LABS: BASO # 0.1 x10^3/uL (0.0-0.2); BASO % 1 % (0-3); EOS % 0 % (0-3); HEMATOCRIT 33.3 % (36.0-47.0); HEMOGLOBIN 10.5 g/dL (12.0-15.5); LYMPH % 6 % (24-48); MEAN CORPUSCULAR HEMOGLOBIN 22 pg (25-35); MEAN CORPUSCULAR HGB CONC 32 g/dL (31-37); MEAN CORPUSCULAR VOLUME 70 fL (79-100); MONO % 6 % (0-9); NEUT % 87 % (31-73); PLATELET COUNT 235 x10^3/uL (140-400); RED BLOOD COUNT 4.76 x10^6/uL (3.50-5.40); RED CELL DISTRIBUTION WIDTH 15.6 % (11.5-14.5); WHITE BLOOD COUNT 16.4 x10^3/uL (4.0-11.0)
[2017-01-17 05:24] LABS: CREATININE 0.7 mg/dL (0.6-1.0); GFR 100.1; POTASSIUM 4.3 mmol/L (3.5-5.1)
[2017-01-17 06:43] VITALS: BP 139/70
[2017-01-17] MEDS ORDERED: FAMOTIDINE 20 MG TABLET. ONE (07:50)
[2017-01-17] MEDS: METFORMIN 500 MG TABLET. PO SCH (07:56)
[2017-01-17] MEDS: ASPIRIN CHEWABLE 81 MG TABLET. PO SCH (07:56)
[2017-01-17 08:00] VITALS: BP 134/76
[2017-01-17] MEDS: INSULIN ASPART 300 UNITS/3 ML INSULN.PEN SQ SCH ×2 (08:04→11:40)
--- NOTE | 2017-01-17 08:44 | PDOC ---
VINNYGWYNBRENDA DIALS INSPECTOR 01/17/17 0844: IM PROGRESS NOTES- Subjective Subjective feeling RLE improving, pain throacic spine with movement r/t surgery Objective Objective no distress Vitals Vital Signs Date Time Temp Pulse Resp B/P Pulse Ox O2 Delivery O2 Flow Rate FiO2 01/17/17 07:55 16 Room Air 01/17/17 06:43 98.8 62 139/70 99 98.8 01/16/17 16:43 96.0 Input & Output Intake and Output 01/17/17 07:00 Intake Total 2730 ml Output Total 975 ml Balance 1755 ml Intake Oral 1680 ml IV Total 1050 ml Output Urine Total 900 ml Estimated Blood Loss 75 ml # Voids 2 Physical Exam Physical Exam General appearance - alert,well appearing, and in no distress Mental Status - alert, oriented to person, place, and time, affect appropriate to mood Head - normal Chest - clear to auscultation, no wheezes, rales or rhonchi, symmetric air entry Heart - S1 and S2 normal Abdomen - soft, nontender, nondistended, no masses or organomegaly Neurological - R lower leg weakness mild. Musculoskeletal - no muscular tenderness noted Extremities - no pedal edema Skin - warm and dry Labs Laboratory Tests Test 01/15/17 11:46 01/15/17 16:53 01/15/17 21:18 01/16/17 03:50 Glucose (Fingerstick) 268mg/dL (70-99) 272mg/dL (70-99) 239mg/dL (70-99) White Blood Count 14.9x10^3/uL (4.0-11.0) Red Blood Count 5.16x10^6/uL (3.50-5.40) Hemoglobin 11.4g/dL (12.0-15.5) Hematocrit 36.1% (36.0-47.0) Mean Corpuscular Volume 70fL (79-100) Mean Corpuscular Hemoglobin 22pg (25-35) Mean Corpuscular Hemoglobin Concent 32g/dL (31-37) Red Cell Distribution Width 15.9% (11.5-14.5) Platelet Count 272x10^3/uL (140-400) Neutrophils (%) (Auto) 85% (31-73) Lymphocytes (%) (Auto) 10% (24-48) Monocytes (%) (Auto) 4% (0-9) Eosinophils (%) (Auto) 0% (0-3) Basophils (%) (Auto) 0% (0-3) Neutrophils # (Auto) 12.7x10^3uL (1.8-7.7) Lymphocytes # (Auto) 1.5x10^3/uL (1.0-4.8) Monocytes # (Auto) 0.6x10^3/uL (0.0-1.1) Eosinophils # (Auto) 0.0x10^3/uL (0.0-0.7) Basophils # (Auto) 0.0x10^3/uL (0.0-0.2) Segmented Neutrophils % 90% (35-66) Lymphocytes % 8% (24-48) Monocytes % 2% (0-10) Platelet Estimate Adequate (ADEQUATE) Large Platelets Occ Hypochromasia Mod Microcytosis Marked Sodium Level 141mmol/L (136-145) Potassium Level 3.8mmol/L (3.5-5.1) Chloride Level 106mmol/L (98-107) Carbon Dioxide Level 22mmol/L (21-32) Anion Gap 13 (6-14) Blood Urea Nitrogen 15mg/dL (7-20) Creatinine 0.6mg/dL (0.6-1.0) Estimated GFR (Cockcroft-Gault) 119.6 Glucose Level 261mg/dL (70-99) Calcium Level 9.5mg/dL (8.5-10.1) Test 01/16/17 07:05 01/16/17 12:17 01/16/17 16:10 01/16/17 21:58 Glucose (Fingerstick) 228mg/dL (70-99) 83mg/dL (70-99) 305mg/dL (70-99) 225mg/dL (70-99) Test 01/17/17 04:50 01/17/17 06:54 White Blood Count 16.4x10^3/uL (4.0-11.0) Red Blood Count 4.76x10^6/uL (3.50-5.40) Hemoglobin 10.5g/dL (12.0-15.5) Hematocrit 33.3% (36.0-47.0) Mean Corpuscular Volume 70fL (79-100) Mean Corpuscular Hemoglobin 22pg (25-35) Mean Corpuscular Hemoglobin Concent 32g/dL (31-37) Red Cell Distribution Width 15.6% (11.5-14.5) Platelet Count 235x10^3/uL (140-400) Neutrophils (%) (Auto) 87% (31-73) Lymphocytes (%) (Auto) 6% (24-48) Monocytes (%) (Auto) 6% (0-9) Eosinophils (%) (Auto) 0% (0-3) Basophils (%) (Auto) 1% (0-3) Neutrophils # (Auto) 14.3x10^3uL (1.8-7.7) Lymphocytes # (Auto) 1.0x10^3/uL (1.0-4.8) Monocytes # (Auto) 1.0x10^3/uL (0.0-1.1) Eosinophils # (Auto) 0.0x10^3/uL (0.0-0.7) Basophils # (Auto) 0.1x10^3/uL (0.0-0.2) Sodium Level 144mmol/L (136-145) Potassium Level 4.3mmol/L (3.5-5.1) Chloride Level 108mmol/L (98-107) Carbon Dioxide Level 25mmol/L (21-32) Anion Gap 11 (6-14) Blood Urea Nitrogen 16mg/dL (7-20) Creatinine 0.7mg/dL (0.6-1.0) Estimated GFR (Cockcroft-Gault) 100.1 Glucose Level 252mg/dL (70-99) Calcium Level 9.0mg/dL (8.5-10.1) Magnesium Level 1.9mg/dL (1.8-2.4) Glucose (Fingerstick) 209mg/dL (70-99) Laboratory Tests Test 01/16/17 12:17 01/16/17 16:10 01/16/17 21:58 01/17/17 04:50 Glucose (Fingerstick) 83mg/dL (70-99) 305mg/dL (70-99) 225mg/dL (70-99) White Blood Count 16.4x10^3/uL (4.0-11.0) Red Blood Count 4.76x10^6/uL (3.50-5.40) Hemoglobin 10.5g/dL (12.0-15.5) Hematocrit 33.3% (36.0-47.0) Mean Corpuscular Volume 70fL (79-100) Mean Corpuscular Hemoglobin 22pg (25-35) Mean Corpuscular Hemoglobin Concent 32g/dL (31-37) Red Cell Distribution Width 15.6% (11.5-14.5) Platelet Count 235x10^3/uL (140-400) Neutrophils (%) (Auto) 87% (31-73) Lymphocytes (%) (Auto) 6% (24-48) Monocytes (%) (Auto) 6% (0-9) Eosinophils (%) (Auto) 0% (0-3) Basophils (%) (Auto) 1% (0-3) Neutrophils # (Auto) 14.3x10^3uL (1.8-7.7) Lymphocytes # (Auto) 1.0x10^3/uL (1.0-4.8) Monocytes # (Auto) 1.0x10^3/uL (0.0-1.1) Eosinophils # (Auto) 0.0x10^3/uL (0.0-0.7) Basophils # (Auto) 0.1x10^3/uL (0.0-0.2) Sodium Level 144mmol/L (136-145) Potassium Level 4.3mmol/L (3.5-5.1) Chloride Level 108mmol/L (98-107) Carbon Dioxide Level 25mmol/L (21-32) Anion Gap 11 (6-14) Blood Urea Nitrogen 16mg/dL (7-20) Creatinine 0.7mg/dL (0.6-1.0) Estimated GFR (Cockcroft-Gault) 100.1 Glucose Level 252mg/dL (70-99) Calcium Level 9.0mg/dL (8.5-10.1) Magnesium Level 1.9mg/dL (1.8-2.4) Test 01/17/17 06:54 Glucose (Fingerstick) 209mg/dL (70-99) Meds Current Medications Desflurane (Suprane) 60 ml STK-MED ONCE IH ; Start 01/16/17 at 09:37; Stop 01/16 at 09:38; Status DC Dexamethasone Sodium Phosphate (Decadron) 20 mg STK-MED ONCE .ROUTE ; Start at 09:37; Stop 01/16/17 at 09:38; Status DC Ephedrine Sulfate 50 mg STK-MED ONCE IV ; Start 01/16/17 at 09:44; Stop at 09:45; Status DC Famotidine (Pepcid) 20 mg STK-MED ONCE .ROUTE ; Start 01/16/17 at 13:51; Stop at 13:52; Status DC Famotidine (Pepcid) 20 mg STK-MED ONCE .ROUTE ; Start 01/16/17 at 19:05; Stop at 19:06; Status DC Famotidine (Pepcid) 20 mg STK-MED ONCE .ROUTE ; Start 01/17/17 at 07:50; Stop at 07:51; Status DC Metoprolol Tartrate (Lopressor) 100 mg BID PO ; Start 01/17/17 at 09:00 Ondansetron HCl 4 mg 4 mg STK-MED ONCE .ROUTE ; Start 01/16/17 at 09:58; Stop at 09:59; Status DC Propofol (Diprivan) 50 ml @ As Directed STK-MED ONCE IV ; Start 01/16/17 at 10: 41; Stop 01/16/17 at 10:42; Status DC Assessment Assessment IMPRESSION: 1. L hip pain post fall on home property 2. L lower leg instability with ambulation secondary to #8 3. malignant HTN 4. 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 diverticulosis 7. hypokalemia 8. 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 Cord hyperintensity may represent edema or myelomalacia. d/w Dr. Price. Neurosurgery consulted, surgery later today. Obtain cardiology pre op clearance To surgery-d/w Carey, BRENDA reviewed. Surgery ok if anesthesia agrees. T11-12 laminectomy POD 1 malignant HTN resume home meds Hydralazine 10mg IV prn SBP >180 HTN + DM =begin ASA 81mg daily SBP 160s-begin Lisinopril 10mg daily 08/17 Accel HTN-BP 175/81-assess post surgery improved Home metoprolol at 100mg bid (was 200mg bid) --with addition Lisinopril 10mg BP improved. Continue for home dosing L Hip pain post falll XR L hip negative Dr. Price consult L knee instability- hypokalemia Admit K 3.4 01/17 4.3 01/15 Mg 1.6 replace Mg SO4 2 gm IV 01/17 1.9 KCL 20meq 01/14 recheck 01/15 DM II with hyperglycemia/neuropathy-steroid induced hyperglycemia FSBS/SSI low intensity continue metformin BS 209-305 Start Metformin 850mg bid May need SSI for discharge hyperlipidemia on statin leukocytosis Admit WBC 7.1 01/16 16.4 steroid induced leukocytosis DVT/GI prophylaxis SCD/COLLEEN Pepcid For more details regarding further plans, please refer to the orders. Plan Plan For further plan of care please refer to the orders. SHAHRAM POLO MD 01/17/17 1029: IM PROGRESS NOTES- Assessment Assessment The patient was seen and examined by me. Chart reviewed and plan of care formulated. Discussed with, reviewed and agree with CARDIAC CATH LAB MANAGER's notes, plan of care and orders with modifications as necessary. Discharge Management - 35 minutes. BRENDA RANDOLPH APRN Jan 17, 2017 08:44 SHAHRAM POLO MD Jan 17, 2017 10:29
--- NOTE | 2017-01-17 08:45 | DISCH ---
DISCHARGE INSTRUCTIONS Condition on Discharge Condition on Discharge: Stable Activity After Discharge Activity Instructions for Disc: Activity as tolerated Diet after Discharge Diet after Discharge: Cardiac (No consentrated sweets ) Wound Incision Care Wound Care Equipment: Dressings (Keep dressing dry -post op dressing care per Dr. Wei ) Checks after Discharge Checks after discharge: Check blood sugar, ac/hs Contacting the DRQuintin after DC Call your doctor for: Concerns you may have Follow-Up Follow up with: Dr. Day Friday next week Follow Up With: Dr. Wei per his instructions BRENDA RANDOLPH APRN Jan 17, 2017 08:45
[2017-01-17] MEDS ORDERED: METFORMIN 850 MG TABLET PO SCH (09:00)
[2017-01-17] MEDS ORDERED: METOPROLOL TART IMMED RELEASE 50 MG TABLET. PO SCH (09:00)
[2017-01-17] MEDS ORDERED: LISI10TA2 PO (09:14)
[2017-01-17] MEDS ORDERED: GABA-585 PO (09:14)
[2017-01-17] MEDS ORDERED: INSU100I17 SQ (09:14)
[2017-01-17] MEDS ORDERED: METO50TA2 PO (09:14)
[2017-01-17] MEDS ORDERED: HYDR-2672 PO (09:14)
[2017-01-17] MEDS: CHOLECALCIFEROL (VITAMIN D3) 1,000 UNIT TABLET PO SCH (09:24)
[2017-01-17] MEDS: GABAPENTIN 100 MG CAPSULE. PO SCH ×2 (09:24→14:04)
[2017-01-17] MEDS: LISINOPRIL 10 MG TABLET PO SCH (09:25)
[2017-01-17] MEDS: FAMOTIDINE 20 MG TABLET. PO SCH (09:25)
--- NOTE | 2017-01-17 10:30 | PDOC ---
PROGRESS NOTES Subjective Subjective She feels better. Objective Objective Vital Signs Date Time Temp Pulse Resp B/P Pulse Ox O2 Delivery O2 Flow Rate FiO2 01/17/17 09:26 78 134/76 01/17/17 09:00 16 Room Air 01/17/17 06:43 98.8 99 98.8 01/16/17 16:43 96.0 Intake and Output 01/17/17 07:00 Intake Total 2730 ml Output Total 975 ml Balance 1755 ml Intake Oral 1680 ml IV Total 1050 ml Output Urine Total 900 ml Estimated Blood Loss 75 ml # Voids 2 Physical Exam Physical Exam She is comforable and she got up and walked with roller walker. She can raise her left lower extremity straight up while supine but relative weakness of left hip flexor muscles continues. Assessment Assessment Problems Medical Problems: (1) Hyperglycemia Status: Acute (2) Hypertension Status: Acute (3) Lower extremity weakness Status: Acute (4) Lower extremity weakness Status: Acute Plan Plan of Longterm today with out patient follow up when she can manage stairs. Comment Review of Relevant I have reviewed the following items alberto (where applicable) has been applied. Labs Laboratory Tests Test 01/15/17 11:46 01/15/17 16:53 01/15/17 21:18 01/16/17 03:50 Glucose (Fingerstick) 268mg/dL (70-99) 272mg/dL (70-99) 239mg/dL (70-99) White Blood Count 14.9x10^3/uL (4.0-11.0) Red Blood Count 5.16x10^6/uL (3.50-5.40) Hemoglobin 11.4g/dL (12.0-15.5) Hematocrit 36.1% (36.0-47.0) Mean Corpuscular Volume 70fL (79-100) Mean Corpuscular Hemoglobin 22pg (25-35) Mean Corpuscular Hemoglobin Concent 32g/dL (31-37) Red Cell Distribution Width 15.9% (11.5-14.5) Platelet Count 272x10^3/uL (140-400) Neutrophils (%) (Auto) 85% (31-73) Lymphocytes (%) (Auto) 10% (24-48) Monocytes (%) (Auto) 4% (0-9) Eosinophils (%) (Auto) 0% (0-3) Basophils (%) (Auto) 0% (0-3) Neutrophils # (Auto) 12.7x10^3uL (1.8-7.7) Lymphocytes # (Auto) 1.5x10^3/uL (1.0-4.8) Monocytes # (Auto) 0.6x10^3/uL (0.0-1.1) Eosinophils # (Auto) 0.0x10^3/uL (0.0-0.7) Basophils # (Auto) 0.0x10^3/uL (0.0-0.2) Segmented Neutrophils % 90% (35-66) Lymphocytes % 8% (24-48) Monocytes % 2% (0-10) Platelet Estimate Adequate (ADEQUATE) Large Platelets Occ Hypochromasia Mod Microcytosis Marked Sodium Level 141mmol/L (136-145) Potassium Level 3.8mmol/L (3.5-5.1) Chloride Level 106mmol/L (98-107) Carbon Dioxide Level 22mmol/L (21-32) Anion Gap 13 (6-14) Blood Urea Nitrogen 15mg/dL (7-20) Creatinine 0.6mg/dL (0.6-1.0) Estimated GFR (Cockcroft-Gault) 119.6 Glucose Level 261mg/dL (70-99) Calcium Level 9.5mg/dL (8.5-10.1) Test 01/16/17 07:05 01/16/17 12:17 01/16/17 16:10 01/16/17 21:58 Glucose (Fingerstick) 228mg/dL (70-99) 83mg/dL (70-99) 305mg/dL (70-99) 225mg/dL (70-99) Test 01/17/17 04:50 01/17/17 06:54 White Blood Count 16.4x10^3/uL (4.0-11.0) Red Blood Count 4.76x10^6/uL (3.50-5.40) Hemoglobin 10.5g/dL (12.0-15.5) Hematocrit 33.3% (36.0-47.0) Mean Corpuscular Volume 70fL (79-100) Mean Corpuscular Hemoglobin 22pg (25-35) Mean Corpuscular Hemoglobin Concent 32g/dL (31-37) Red Cell Distribution Width 15.6% (11.5-14.5) Platelet Count 235x10^3/uL (140-400) Neutrophils (%) (Auto) 87% (31-73) Lymphocytes (%) (Auto) 6% (24-48) Monocytes (%) (Auto) 6% (0-9) Eosinophils (%) (Auto) 0% (0-3) Basophils (%) (Auto) 1% (0-3) Neutrophils # (Auto) 14.3x10^3uL (1.8-7.7) Lymphocytes # (Auto) 1.0x10^3/uL (1.0-4.8) Monocytes # (Auto) 1.0x10^3/uL (0.0-1.1) Eosinophils # (Auto) 0.0x10^3/uL (0.0-0.7) Basophils # (Auto) 0.1x10^3/uL (0.0-0.2) Sodium Level 144mmol/L (136-145) Potassium Level 4.3mmol/L (3.5-5.1) Chloride Level 108mmol/L (98-107) Carbon Dioxide Level 25mmol/L (21-32) Anion Gap 11 (6-14) Blood Urea Nitrogen 16mg/dL (7-20) Creatinine 0.7mg/dL (0.6-1.0) Estimated GFR (Cockcroft-Gault) 100.1 Glucose Level 252mg/dL (70-99) Calcium Level 9.0mg/dL (8.5-10.1) Magnesium Level 1.9mg/dL (1.8-2.4) Glucose (Fingerstick) 209mg/dL (70-99) Laboratory Tests Test 01/16/17 12:17 01/16/17 16:10 01/16/17 21:58 01/17/17 04:50 Glucose (Fingerstick) 83mg/dL (70-99) 305mg/dL (70-99) 225mg/dL (70-99) White Blood Count 16.4x10^3/uL (4.0-11.0) Red Blood Count 4.76x10^6/uL (3.50-5.40) Hemoglobin 10.5g/dL (12.0-15.5) Hematocrit 33.3% (36.0-47.0) Mean Corpuscular Volume 70fL (79-100) Mean Corpuscular Hemoglobin 22pg (25-35) Mean Corpuscular Hemoglobin Concent 32g/dL (31-37) Red Cell Distribution Width 15.6% (11.5-14.5) Platelet Count 235x10^3/uL (140-400) Neutrophils (%) (Auto) 87% (31-73) Lymphocytes (%) (Auto) 6% (24-48) Monocytes (%) (Auto) 6% (0-9) Eosinophils (%) (Auto) 0% (0-3) Basophils (%) (Auto) 1% (0-3) Neutrophils # (Auto) 14.3x10^3uL (1.8-7.7) Lymphocytes # (Auto) 1.0x10^3/uL (1.0-4.8) Monocytes # (Auto) 1.0x10^3/uL (0.0-1.1) Eosinophils # (Auto) 0.0x10^3/uL (0.0-0.7) Basophils # (Auto) 0.1x10^3/uL (0.0-0.2) Sodium Level 144mmol/L (136-145) Potassium Level 4.3mmol/L (3.5-5.1) Chloride Level 108mmol/L (98-107) Carbon Dioxide Level 25mmol/L (21-32) Anion Gap 11 (6-14) Blood Urea Nitrogen 16mg/dL (7-20) Creatinine 0.7mg/dL (0.6-1.0) Estimated GFR (Cockcroft-Gault) 100.1 Glucose Level 252mg/dL (70-99) Calcium Level 9.0mg/dL (8.5-10.1) Magnesium Level 1.9mg/dL (1.8-2.4) Test 01/17/17 06:54 Glucose (Fingerstick) 209mg/dL (70-99) Medications Current Medications Ondansetron HCl (Zofran) 4 mg PRN Q8HRS PRN IV NAUSEA/VOMITING; Start 01/14/17 at 08:00; Stop 01/14/17 at 08:44; Status DC Morphine Sulfate 2 mg PRN Q2HR PRN IV PAIN; Start 01/14/17 at 08:00; Stop 01/14 at 08:44; Status DC Acetaminophen (Tylenol) 650 mg PRN Q4HRS PRN PO FEVER; Start 01/14/17 at 08:00 ; Stop 01/14/17 at 08:44; Status DC Aspirin (Linette Aspirin) 325 mg 1X ONCE PO Last administered on 01/14/17 08:34 ; Start 01/14/17 at 08:00; Stop 01/14/17 at 08:01; Status DC Morphine Sulfate 2 mg PRN Q2HR PRN IV PAIN; Start 01/14/17 at 08:45 Ondansetron HCl (Zofran) 4 mg PRN Q8HRS PRN IV NAUSEA/VOMITING; Start 01/14/17 at 08:45; Stop 01/16/17 at 06:28; Status DC Acetaminophen/ Hydrocodone Bitart (Lortab 5/325) 1 tab PRN Q6HRS PRN PO PAIN; Start 01/14/17 at 08:45; Stop 01/14/17 at 09:26; Status DC Acetaminophen (Tylenol) 650 mg PRN Q6HRS PRN PEG MILD PAIN / TEMP; Start at 08:45; Stop 01/17/17 at 08:42; Status DC Aspirin (Children'S Aspirin) 81 mg DAILYWBKFT PO Last administered on 08:27; Start 01/15/17 at 08:00; Stop 01/16/17 at 06:28; Status DC Potassium Chloride (Klor-Con) 20 meq 1X ONCE PO Last administered on 10:06; Start 01/14/17 at 08:45; Stop 01/14/17 at 08:46; Status DC Hydralazine HCl (Apresoline) 10 mg PRN Q4HRS PRN IVP ELEVATED BP, SEE COMMENTS Last administered on 01/14/17 09:31; Start 01/14/17 at 08:45 Metformin HCl (Glucophage) 500 mg BIDWMEALS PO Last administered on 01/17/17 07:56; Start 01/14/17 at 10:00 Metoprolol Tartrate (Lopressor) 100 mg BID PO Last administered on 01/16/17 19 :54; Start 01/14/17 at 10:00; Stop 01/17/17 at 05:29; Status DC Vitamin D (Vitamin D3) 1,000 unit DAILY PO Last administered on 01/17/17 09:24 ; Start 01/14/17 at 10:00 Cetirizine HCl (Zyrtec) 10 mg HS PO Last administered on 01/16/17 19:51; Start 01/14/17 at 21:00 Acetaminophen/ Hydrocodone Bitart (Lortab 7.5/325) 1 tab PRN Q6HRS PRN PO PAIN Last administered on 01/17/17 07:55; Start 01/14/17 at 09:30 Insulin Aspart (Novolog) TIDAC SQ Last administered on 01/17/17 08:04; Start 01/14/17 at 11:30 Famotidine (Pepcid) 20 mg BID PO Last administered on 01/17/17 09:25; Start at 10:00 Dexamethasone Sodium Phosphate (Decadron) 4 mg Q6HRS IV Last administered on 06:28; Start 01/14/17 at 19:00 Gabapentin (Neurontin) 100 mg TID PO Last administered on 01/15/17 08:27; Start 01/14/17 at 21:00; Stop 01/15/17 at 15:51; Status DC Lisinopril (Prinivil) 10 mg DAILY PO Last administered on 01/17/17 09:25; Start 01/15/17 at 11:00 Clonidine HCl 0.1 mg 0.1 mg PRN Q8HRS PRN PO ELEVATED BP, SEE COMMENTS; Start 01/15/17 at 11:00 Cefazolin Sodium/ Dextrose 50 ml @ 100 mls/hr 1X PREOP ONCE IV Last administered on 01/15/17 09:40; Start 01/15/17 at 13:15; Stop 01/15/17 at 13:44 ; Status DC Magnesium Sulfate/ Dextrose (Magnesium Sulfate PREMIX 2GM) 50 ml @ 25 mls/hr 1X ONCE IV Last administered on 01/15/17 17:12; Start 01/15/17 at 13:30; Stop 01/15/17 at 15:29; Status DC Ondansetron HCl (Zofran) 4 mg PRN Q6HRS PRN IV Nausea; Start 01/16/17 at 07:00 ; Stop 01/16/17 at 18:14; Status DC Fentanyl Citrate (Fentanyl 2ml Vial) 25 mcg PRN Q5MIN PRN IV MILD PAIN; Start 01/16/17 at 07:00; Stop 01/16/17 at 18:14; Status DC Fentanyl Citrate (Fentanyl 2ml Vial) 50 mcg PRN Q5MIN PRN IV MODERATE PAIN Last administered on 01/16/17 13:59; Start 01/16/17 at 07:00; Stop 01/16/17 at 18:14; Status DC Morphine Sulfate 1 mg 1 mg PRN Q10MIN PRN IV SEVERE PAIN; Start 01/16/17 at 07: 00; Stop 01/16/17 at 18:00; Status DC Lactated Ringer's (Iv Lactated Ringers) 1,000 ml @ 30 mls/hr Q24H IV Last administered on 01/16/17 08:30; Start 01/16/17 at 07:00; Stop 01/16/17 at 18:59 ; Status DC Lidocaine HCl 2 ml 1X PRN PRN ID IV START; Start 01/16/17 at 07:00; Stop at 18:00; Status DC Hydromorphone HCl (Dilaudid) 0.5 mg PRN Q10MIN PRN IV SEVERE PAIN, Second choice; Start 01/16/17 at 07:00; Stop 01/16/17 at 18:14; Status DC Prochlorperazine Edisylate (Compazine) 5 mg PACU PRN PRN IV NAUSEA; Start 01/16 at 07:00; Stop 01/16/17 at 18:00; Status DC Gabapentin 300 mg 300 mg TID PO Last administered on 01/17/17 09:24; Start at 16:00 Cefazolin Sodium/ Dextrose (Ancef 2gm Premix) 50 ml @ 100 mls/hr 1X PREOP ONCE IV ; Start 01/16/17 at 06:00; Stop 01/16/17 at 06:29; Status DC Ondansetron HCl (Zofran) 4 mg PRN Q8HRS PRN IV NAUSEA/VOMITING; Start 01/16/17 at 06:28 Aspirin (Children'S Aspirin) 81 mg DAILYWBKFT PO Last administered on 07:56; Start 01/16/17 at 06:28 Thrombin 20,000 unit STK-MED ONCE TP Last administered on 01/16/17 09:59; Start 01/16/17 at 06:46; Stop 01/16/17 at 06:47; Status DC Gelatin (Gelfoam Size 100) 1 each STK-MED ONCE .ROUTE Last administered on 09:59; Start 01/16/17 at 06:47; Stop 01/16/17 at 06:48; Status DC Ketorolac Tromethamine (Toradol For Or Only) 60 mg STK-MED ONCE .ROUTE Last administered on 01/16/17 09:59; Start 01/16/17 at 06:47; Stop 01/16/17 at 06:48 ; Status DC Bupivacaine HCl/ Epinephrine Bitart 30 ml 30 ml STK-MED ONCE .ROUTE Last administered on 01/16/17 09:59; Start 01/16/17 at 06:48; Stop 01/16/17 at 06:49 ; Status DC Bacitracin 28769 unit/Sodium Chloride 1,000 ml @ 1,000 mls/hr 1X PERIOP ONCE IRR Last administered on 01/16/17 09:59; Start 01/16/17 at 06:57; Stop at 07:56; Status DC Propofol 50 ml @ As Directed STK-MED ONCE IV ; Start 01/16/17 at 08:03; Stop at 08:04; Status DC Propofol (Diprivan) 20 ml @ As Directed STK-MED ONCE IV ; Start 01/16/17 at 08: 03; Stop 01/16/17 at 08:04; Status DC Lidocaine HCl 100 mg STK-MED ONCE .ROUTE ; Start 01/16/17 at 08:03; Stop at 08:04; Status DC Sodium Chloride (Sodium Chloride) 50 ml STK-MED ONCE IJ ; Start 01/16/17 at 08: 03; Stop 01/16/17 at 08:04; Status DC Fentanyl Citrate (Fentanyl 2ml Vial) 100 mcg STK-MED ONCE .ROUTE ; Start at 08:04; Stop 01/16/17 at 08:05; Status DC Remifentanil HCl (Ultiva) 2 mg STK-MED ONCE IV ; Start 01/16/17 at 08:04; Stop 01/16/17 at 08:05; Status DC Succinylcholine Chloride (Anectine) 200 mg STK-MED ONCE .ROUTE ; Start 01/16/17 at 08:04; Stop 01/16/17 at 08:05; Status DC Rocuronium [place] (Zemuron) 50 mg STK-MED ONCE .ROUTE ; Start 01/16/17 at 08:04 ; Stop 01/16/17 at 08:05; Status DC Dexamethasone Sodium Phosphate (Decadron) 20 mg STK-MED ONCE .ROUTE ; Start at 09:37; Stop 01/16/17 at 09:38; Status DC Desflurane (Suprane) 60 ml STK-MED ONCE IH ; Start 01/16/17 at 09:37; Stop 01/16 at 09:38; Status DC Ephedrine Sulfate 50 mg STK-MED ONCE IV ; Start 01/16/17 at 09:44; Stop at 09:45; Status DC Ondansetron HCl 4 mg 4 mg STK-MED ONCE .ROUTE ; Start 01/16/17 at 09:58; Stop at 09:59; Status DC Propofol (Diprivan) 50 ml @ As Directed STK-MED ONCE IV ; Start 01/16/17 at 10: 41; Stop 01/16/17 at 10:42; Status DC Famotidine (Pepcid) 20 mg STK-MED ONCE .ROUTE ; Start 01/16/17 at 13:51; Stop at 13:52; Status DC Famotidine (Pepcid) 20 mg STK-MED ONCE .ROUTE ; Start 01/16/17 at 19:05; Stop at 19:06; Status DC Metoprolol Tartrate (Lopressor) 100 mg BID PO Last administered on 01/17/17t 09 :26; Start 01/17/17 at 09:00 Famotidine (Pepcid) 20 mg STK-MED ONCE .ROUTE ; Start 01/17/17 at 07:50; Stop at 07:51; Status DC Metformin HCl (Glucophage) 850 mg BIDWMEALS PO ; Start 01/17/17 at 09:00; Stop 01/17/17 at 09:10; Status DC Active Scripts Active Gabapentin 100 Mg Capsule 300 Mg PO TID Novolog Flexpen (Insulin Aspart) 100 Unit/1 Ml Insuln.pen 0-12 Unit SQ TIDAC Hydrocodone-Apap 10-325 (Hydrocodone Bit/Acetaminophen) 1 Each Tablet 1 Tab PO PRN Q6HRS PRN Lisinopril 10 Mg Tablet 10 Mg PO DAILY Metoprolol Tartrate 50 Mg Tablet 100 Mg PO BID Reported Zyrtec (Cetirizine Hcl) 10 Mg Tablet 10 Mg PO HS Vitamin D3 (Cholecalciferol (Vitamin D3)) 1,000 Unit Tablet 1 Tab PO DAILY Metformin Hcl 500 Mg Tablet 500 Mg PO BIDWMEALS Multivitamins (Multivitamin) 1 Each Tablet 1 Tab PO DAILY Vitals/I & O Vital Sign - Last 24 Hours 01/16/17 01/16/17 01/16/17 01/16/17 12:06 12:06 12:21 12:36 Temp 97.5 97.5 97.5 97.5 97.5 97.5 Pulse 103 96 94 Resp 13 13 16 B/P 179/80 159/66 141/61 Pulse Ox 100 100 94 O2 Delivery Simple Mask Room Air Simple Mask O2 Flow Rate 10 10 01/16/17 01/16/17 01/16/17 01/16/17 12:39 12:51 13:01 13:15 Temp 97.5 98.5 97.5 98.5 Pulse 94 85 Resp 15 15 15 16 B/P 127/61 158/92 Pulse Ox 93 93 92 93 O2 Delivery Room Air Room Air Room Air 01/16/17 01/16/17 01/16/17 01/16/17 13:30 13:57 13:59 14:00 Pulse 83 101 Resp 16 20 B/P 147/82 122/82 O2 Delivery Room Air Room Air 01/16/17 01/16/17 01/16/17 01/16/17 14:05 14:30 15:00 15:24 Temp 98.5 98.5 Pulse 97 94 93 Resp 16 18 16 16 B/P 138/78 157/77 149/69 136/84 Pulse Ox 93 O2 Delivery Room Air Room Air Room Air Room Air 01/16/17 01/16/17 01/16/17 01/16/17 16:00 16:43 19:02 19:34 Temp 97.7 97.7 Pulse 93 94 81 Resp 16 16 18 B/P 149/74 132/87 129/75 Pulse Ox 96 O2 Delivery Room Air Room Air Room Air Room Air O2 Flow Rate 96.0 01/16/17 01/16/17 01/16/17 01/17/17 19:54 22:43 23:00 03:33 Temp 98.6 98.4 98.6 98.4 Pulse 78 72 64 Resp 18 18 B/P 121/80 132/76 148/90 Pulse Ox 97 97 O2 Delivery Room Air Room Air Room Air 01/17/17 01/17/17 01/17/17 01/17/17 03:35 06:43 07:55 08:00 Temp 98.8 98.8 Pulse 62 Resp 18 16 16 B/P 139/70 Pulse Ox 97 99 O2 Delivery Room Air Room Air Room Air Room Air 01/17/17 01/17/17 01/17/17 09:00 09:25 09:26 Pulse 78 78 Resp 16 B/P 134/76 134/76 O2 Delivery Room Air Intake and Output 01/16/17 01/16/17 01/17/17 15:00 23:00 07:00 Intake Total 1050 ml 1080 ml 600 ml Output Total 75 ml 200 ml 700 ml Balance 975 ml 880 ml -100 ml TORRES FARRELL MD Jan 17, 2017 10:30
--- NOTE | 2017-01-17 13:27 | PDOC ---
PROGRESS NOTES Subjective Subjective POD #1 s/p laminectomy T11-12 lower extremity pain improved ambulated in braden with walker Objective Objective Vital Signs Date Time Temp Pulse Resp B/P Pulse Ox O2 Delivery O2 Flow Rate FiO2 01/17/17 09:26 78 134/76 01/17/17 09:00 16 Room Air 01/17/17 06:43 98.8 99 98.8 01/16/17 16:43 96.0 Intake and Output 01/17/17 07:00 Intake Total 2730 ml Output Total 975 ml Balance 1755 ml Intake Oral 1680 ml IV Total 1050 ml Output Urine Total 900 ml Estimated Blood Loss 75 ml # Voids 2 Physical Exam General: Alert, Oriented X3, Cooperative, No acute distress Neuro: Normal speech, Other (She can raise her left lower extremity straight up while supine but relative weakness of left hip flexor muscles continues.) Skin: Other (dressing dry and intact, flat) Assessment Assessment Problems Medical Problems: (1) Hyperglycemia Status: Acute (2) Hypertension Status: Acute (3) Lower extremity weakness Status: Acute (4) Lower extremity weakness Status: Acute Plan Plan of Care May DC per Dr. Price recommendations f/u 2 weeks Comment Review of Relevant I have reviewed the following items alberto (where applicable) has been applied. Labs Laboratory Tests Test 01/15/17 16:53 01/15/17 21:18 01/16/17 03:50 01/16/17 07:05 Glucose (Fingerstick) 272mg/dL (70-99) 239mg/dL (70-99) 228mg/dL (70-99) White Blood Count 14.9x10^3/uL (4.0-11.0) Red Blood Count 5.16x10^6/uL (3.50-5.40) Hemoglobin 11.4g/dL (12.0-15.5) Hematocrit 36.1% (36.0-47.0) Mean Corpuscular Volume 70fL (79-100) Mean Corpuscular Hemoglobin 22pg (25-35) Mean Corpuscular Hemoglobin Concent 32g/dL (31-37) Red Cell Distribution Width 15.9% (11.5-14.5) Platelet Count 272x10^3/uL (140-400) Neutrophils (%) (Auto) 85% (31-73) Lymphocytes (%) (Auto) 10% (24-48) Monocytes (%) (Auto) 4% (0-9) Eosinophils (%) (Auto) 0% (0-3) Basophils (%) (Auto) 0% (0-3) Neutrophils # (Auto) 12.7x10^3uL (1.8-7.7) Lymphocytes # (Auto) 1.5x10^3/uL (1.0-4.8) Monocytes # (Auto) 0.6x10^3/uL (0.0-1.1) Eosinophils # (Auto) 0.0x10^3/uL (0.0-0.7) Basophils # (Auto) 0.0x10^3/uL (0.0-0.2) Segmented Neutrophils % 90% (35-66) Lymphocytes % 8% (24-48) Monocytes % 2% (0-10) Platelet Estimate Adequate (ADEQUATE) Large Platelets Occ Hypochromasia Mod Microcytosis Marked Sodium Level 141mmol/L (136-145) Potassium Level 3.8mmol/L (3.5-5.1) Chloride Level 106mmol/L (98-107) Carbon Dioxide Level 22mmol/L (21-32) Anion Gap 13 (6-14) Blood Urea Nitrogen 15mg/dL (7-20) Creatinine 0.6mg/dL (0.6-1.0) Estimated GFR (Cockcroft-Gault) 119.6 Glucose Level 261mg/dL (70-99) Calcium Level 9.5mg/dL (8.5-10.1) Test 01/16/17 12:17 01/16/17 16:10 01/16/17 21:58 01/17/17 04:50 Glucose (Fingerstick) 83mg/dL (70-99) 305mg/dL (70-99) 225mg/dL (70-99) White Blood Count 16.4x10^3/uL (4.0-11.0) Red Blood Count 4.76x10^6/uL (3.50-5.40) Hemoglobin 10.5g/dL (12.0-15.5) Hematocrit 33.3% (36.0-47.0) Mean Corpuscular Volume 70fL (79-100) Mean Corpuscular Hemoglobin 22pg (25-35) Mean Corpuscular Hemoglobin Concent 32g/dL (31-37) Red Cell Distribution Width 15.6% (11.5-14.5) Platelet Count 235x10^3/uL (140-400) Neutrophils (%) (Auto) 87% (31-73) Lymphocytes (%) (Auto) 6% (24-48) Monocytes (%) (Auto) 6% (0-9) Eosinophils (%) (Auto) 0% (0-3) Basophils (%) (Auto) 1% (0-3) Neutrophils # (Auto) 14.3x10^3uL (1.8-7.7) Lymphocytes # (Auto) 1.0x10^3/uL (1.0-4.8) Monocytes # (Auto) 1.0x10^3/uL (0.0-1.1) Eosinophils # (Auto) 0.0x10^3/uL (0.0-0.7) Basophils # (Auto) 0.1x10^3/uL (0.0-0.2) Sodium Level 144mmol/L (136-145) Potassium Level 4.3mmol/L (3.5-5.1) Chloride Level 108mmol/L (98-107) Carbon Dioxide Level 25mmol/L (21-32) Anion Gap 11 (6-14) Blood Urea Nitrogen 16mg/dL (7-20) Creatinine 0.7mg/dL (0.6-1.0) Estimated GFR (Cockcroft-Gault) 100.1 Glucose Level 252mg/dL (70-99) Calcium Level 9.0mg/dL (8.5-10.1) Magnesium Level 1.9mg/dL (1.8-2.4) Test 01/17/17 06:54 01/17/17 11:25 Glucose (Fingerstick) 209mg/dL (70-99) 221mg/dL (70-99) Laboratory Tests Test 01/16/17 16:10 01/16/17 21:58 01/17/17 04:50 01/17/17 06:54 Glucose (Fingerstick) 305mg/dL (70-99) 225mg/dL (70-99) 209mg/dL (70-99) White Blood Count 16.4x10^3/uL (4.0-11.0) Red Blood Count 4.76x10^6/uL (3.50-5.40) Hemoglobin 10.5g/dL (12.0-15.5) Hematocrit 33.3% (36.0-47.0) Mean Corpuscular Volume 70fL (79-100) Mean Corpuscular Hemoglobin 22pg (25-35) Mean Corpuscular Hemoglobin Concent 32g/dL (31-37) Red Cell Distribution Width 15.6% (11.5-14.5) Platelet Count 235x10^3/uL (140-400) Neutrophils (%) (Auto) 87% (31-73) Lymphocytes (%) (Auto) 6% (24-48) Monocytes (%) (Auto) 6% (0-9) Eosinophils (%) (Auto) 0% (0-3) Basophils (%) (Auto) 1% (0-3) Neutrophils # (Auto) 14.3x10^3uL (1.8-7.7) Lymphocytes # (Auto) 1.0x10^3/uL (1.0-4.8) Monocytes # (Auto) 1.0x10^3/uL (0.0-1.1) Eosinophils # (Auto) 0.0x10^3/uL (0.0-0.7) Basophils # (Auto) 0.1x10^3/uL (0.0-0.2) Sodium Level 144mmol/L (136-145) Potassium Level 4.3mmol/L (3.5-5.1) Chloride Level 108mmol/L (98-107) Carbon Dioxide Level 25mmol/L (21-32) Anion Gap 11 (6-14) Blood Urea Nitrogen 16mg/dL (7-20) Creatinine 0.7mg/dL (0.6-1.0) Estimated GFR (Cockcroft-Gault) 100.1 Glucose Level 252mg/dL (70-99) Calcium Level 9.0mg/dL (8.5-10.1) Magnesium Level 1.9mg/dL (1.8-2.4) Test 01/17/17 11:25 Glucose (Fingerstick) 221mg/dL (70-99) Medications Current Medications Ondansetron HCl (Zofran) 4 mg PRN Q8HRS PRN IV NAUSEA/VOMITING; Start 01/14/17 at 08:00; Stop 01/14/17 at 08:44; Status DC Morphine Sulfate 2 mg PRN Q2HR PRN IV PAIN; Start 01/14/17 at 08:00; Stop 01/14 at 08:44; Status DC Acetaminophen (Tylenol) 650 mg PRN Q4HRS PRN PO FEVER; Start 01/14/17 at 08:00 ; Stop 01/14/17 at 08:44; Status DC Aspirin (Linette Aspirin) 325 mg 1X ONCE PO Last administered on 01/14/17 08:34 ; Start 01/14/17 at 08:00; Stop 01/14/17 at 08:01; Status DC Morphine Sulfate 2 mg PRN Q2HR PRN IV PAIN; Start 01/14/17 at 08:45 Ondansetron HCl (Zofran) 4 mg PRN Q8HRS PRN IV NAUSEA/VOMITING; Start 01/14/17 at 08:45; Stop 01/16/17 at 06:28; Status DC Acetaminophen/ Hydrocodone Bitart (Lortab 5/325) 1 tab PRN Q6HRS PRN PO PAIN; Start 01/14/17 at 08:45; Stop 01/14/17 at 09:26; Status DC Acetaminophen (Tylenol) 650 mg PRN Q6HRS PRN PEG MILD PAIN / TEMP; Start at 08:45; Stop 01/17/17 at 08:42; Status DC Aspirin (Children'S Aspirin) 81 mg DAILYWBKFT PO Last administered on 08:27; Start 01/15/17 at 08:00; Stop 01/16/17 at 06:28; Status DC Potassium Chloride (Klor-Con) 20 meq 1X ONCE PO Last administered on 10:06; Start 01/14/17 at 08:45; Stop 01/14/17 at 08:46; Status DC Hydralazine HCl (Apresoline) 10 mg PRN Q4HRS PRN IVP ELEVATED BP, SEE COMMENTS Last administered on 01/14/17 09:31; Start 01/14/17 at 08:45 Metformin HCl (Glucophage) 500 mg BIDWMEALS PO Last administered on 01/17/17 07:56; Start 01/14/17 at 10:00 Metoprolol Tartrate (Lopressor) 100 mg BID PO Last administered on 01/16/17 19 :54; Start 01/14/17 at 10:00; Stop 01/17/17 at 05:29; Status DC Vitamin D (Vitamin D3) 1,000 unit DAILY PO Last administered on 01/17/17 09:24 ; Start 01/14/17 at 10:00 Cetirizine HCl (Zyrtec) 10 mg HS PO Last administered on 01/16/17 19:51; Start 01/14/17 at 21:00 Acetaminophen/ Hydrocodone Bitart (Lortab 7.5/325) 1 tab PRN Q6HRS PRN PO PAIN Last administered on 01/17/17 07:55; Start 01/14/17 at 09:30 Insulin Aspart (Novolog) TIDAC SQ Last administered on 01/17/17 11:40; Start 01/14/17 at 11:30 Famotidine (Pepcid) 20 mg BID PO Last administered on 01/17/17 09:25; Start at 10:00 Dexamethasone Sodium Phosphate (Decadron) 4 mg Q6HRS IV Last administered on 11:33; Start 01/14/17 at 19:00 Gabapentin (Neurontin) 100 mg TID PO Last administered on 01/15/17 08:27; Start 01/14/17 at 21:00; Stop 01/15/17 at 15:51; Status DC Lisinopril (Prinivil) 10 mg DAILY PO Last administered on 01/17/17 09:25; Start 01/15/17 at 11:00 Clonidine HCl 0.1 mg 0.1 mg PRN Q8HRS PRN PO ELEVATED BP, SEE COMMENTS; Start 01/15/17 at 11:00 Cefazolin Sodium/ Dextrose 50 ml @ 100 mls/hr 1X PREOP ONCE IV Last administered on 01/15/17 09:40; Start 01/15/17 at 13:15; Stop 01/15/17 at 13:44 ; Status DC Magnesium Sulfate/ Dextrose (Magnesium Sulfate PREMIX 2GM) 50 ml @ 25 mls/hr 1X ONCE IV Last administered on 01/15/17 17:12; Start 01/15/17 at 13:30; Stop 01/15/17 at 15:29; Status DC Ondansetron HCl (Zofran) 4 mg PRN Q6HRS PRN IV Nausea; Start 01/16/17 at 07:00 ; Stop 01/16/17 at 18:14; Status DC Fentanyl Citrate (Fentanyl 2ml Vial) 25 mcg PRN Q5MIN PRN IV MILD PAIN; Start 01/16/17 at 07:00; Stop 01/16/17 at 18:14; Status DC Fentanyl Citrate (Fentanyl 2ml Vial) 50 mcg PRN Q5MIN PRN IV MODERATE PAIN Last administered on 01/16/17 13:59; Start 01/16/17 at 07:00; Stop 01/16/17 at 18:14; Status DC Morphine Sulfate 1 mg 1 mg PRN Q10MIN PRN IV SEVERE PAIN; Start 01/16/17 at 07: 00; Stop 01/16/17 at 18:00; Status DC Lactated Ringer's (Iv Lactated Ringers) 1,000 ml @ 30 mls/hr Q24H IV Last administered on 01/16/17 08:30; Start 01/16/17 at 07:00; Stop 01/16/17 at 18:59 ; Status DC Lidocaine HCl 2 ml 1X PRN PRN ID IV START; Start 01/16/17 at 07:00; Stop at 18:00; Status DC Hydromorphone HCl (Dilaudid) 0.5 mg PRN Q10MIN PRN IV SEVERE PAIN, Second choice; Start 01/16/17 at 07:00; Stop 01/16/17 at 18:14; Status DC Prochlorperazine Edisylate (Compazine) 5 mg PACU PRN PRN IV NAUSEA; Start 01/16 at 07:00; Stop 01/16/17 at 18:00; Status DC Gabapentin 300 mg 300 mg TID PO Last administered on 01/17/17 09:24; Start at 16:00 Cefazolin Sodium/ Dextrose (Ancef 2gm Premix) 50 ml @ 100 mls/hr 1X PREOP ONCE IV ; Start 01/16/17 at 06:00; Stop 01/16/17 at 06:29; Status DC Ondansetron HCl (Zofran) 4 mg PRN Q8HRS PRN IV NAUSEA/VOMITING; Start 01/16/17 at 06:28 Aspirin (Children'S Aspirin) 81 mg DAILYWBKFT PO Last administered on 07:56; Start 01/16/17 at 06:28 Thrombin 20,000 unit STK-MED ONCE TP Last administered on 01/16/17 09:59; Start 01/16/17 at 06:46; Stop 01/16/17 at 06:47; Status DC Gelatin (Gelfoam Size 100) 1 each STK-MED ONCE .ROUTE Last administered on 09:59; Start 01/16/17 at 06:47; Stop 01/16/17 at 06:48; Status DC Ketorolac Tromethamine (Toradol For Or Only) 60 mg STK-MED ONCE .ROUTE Last administered on 01/16/17 09:59; Start 01/16/17 at 06:47; Stop 01/16/17 at 06:48 ; Status DC Bupivacaine HCl/ Epinephrine Bitart 30 ml 30 ml STK-MED ONCE .ROUTE Last administered on 01/16/17 09:59; Start 01/16/17 at 06:48; Stop 01/16/17 at 06:49 ; Status DC Bacitracin 85953 unit/Sodium Chloride 1,000 ml @ 1,000 mls/hr 1X PERIOP ONCE IRR Last administered on 01/16/17 09:59; Start 01/16/17 at 06:57; Stop at 07:56; Status DC Propofol 50 ml @ As Directed STK-MED ONCE IV ; Start 01/16/17 at 08:03; Stop at 08:04; Status DC Propofol (Diprivan) 20 ml @ As Directed STK-MED ONCE IV ; Start 01/16/17 at 08: 03; Stop 01/16/17 at 08:04; Status DC Lidocaine HCl 100 mg STK-MED ONCE .ROUTE ; Start 01/16/17 at 08:03; Stop at 08:04; Status DC Sodium Chloride (Sodium Chloride) 50 ml STK-MED ONCE IJ ; Start 01/16/17 at 08: 03; Stop 01/16/17 at 08:04; Status DC Fentanyl Citrate (Fentanyl 2ml Vial) 100 mcg STK-MED ONCE .ROUTE ; Start at 08:04; Stop 01/16/17 at 08:05; Status DC Remifentanil HCl (Ultiva) 2 mg STK-MED ONCE IV ; Start 01/16/17 at 08:04; Stop 01/16/17 at 08:05; Status DC Succinylcholine Chloride (Anectine) 200 mg STK-MED ONCE .ROUTE ; Start 01/16/17 at 08:04; Stop 01/16/17 at 08:05; Status DC Rocuronium [place] (Zemuron) 50 mg STK-MED ONCE .ROUTE ; Start 01/16/17 at 08:04 ; Stop 01/16/17 at 08:05; Status DC Dexamethasone Sodium Phosphate (Decadron) 20 mg STK-MED ONCE .ROUTE ; Start at 09:37; Stop 01/16/17 at 09:38; Status DC Desflurane (Suprane) 60 ml STK-MED ONCE IH ; Start 01/16/17 at 09:37; Stop 01/16 at 09:38; Status DC Ephedrine Sulfate 50 mg STK-MED ONCE IV ; Start 01/16/17 at 09:44; Stop at 09:45; Status DC Ondansetron HCl 4 mg 4 mg STK-MED ONCE .ROUTE ; Start 01/16/17 at 09:58; Stop at 09:59; Status DC Propofol (Diprivan) 50 ml @ As Directed STK-MED ONCE IV ; Start 01/16/17 at 10: 41; Stop 01/16/17 at 10:42; Status DC Famotidine (Pepcid) 20 mg STK-MED ONCE .ROUTE ; Start 01/16/17 at 13:51; Stop at 13:52; Status DC Famotidine (Pepcid) 20 mg STK-MED ONCE .ROUTE ; Start 01/16/17 at 19:05; Stop at 19:06; Status DC Metoprolol Tartrate (Lopressor) 100 mg BID PO Last administered on 01/17/17t 09 :26; Start 01/17/17 at 09:00 Famotidine (Pepcid) 20 mg STK-MED ONCE .ROUTE ; Start 01/17/17 at 07:50; Stop at 07:51; Status DC Metformin HCl (Glucophage) 850 mg BIDWMEALS PO ; Start 01/17/17 at 09:00; Stop 01/17/17 at 09:10; Status DC Active Scripts Active Gabapentin 100 Mg Capsule 300 Mg PO TID Novolog Flexpen (Insulin Aspart) 100 Unit/1 Ml Insuln.pen 0-12 Unit SQ TIDAC Hydrocodone-Apap 10-325 (Hydrocodone Bit/Acetaminophen) 1 Each Tablet 1 Tab PO PRN Q6HRS PRN Lisinopril 10 Mg Tablet 10 Mg PO DAILY Metoprolol Tartrate 50 Mg Tablet 100 Mg PO BID Reported Zyrtec (Cetirizine Hcl) 10 Mg Tablet 10 Mg PO HS Vitamin D3 (Cholecalciferol (Vitamin D3)) 1,000 Unit Tablet 1 Tab PO DAILY Metformin Hcl 500 Mg Tablet 500 Mg PO BIDWMEALS Multivitamins (Multivitamin) 1 Each Tablet 1 Tab PO DAILY Vitals/I & O Vital Sign - Last 24 Hours 01/16/17 01/16/17 01/16/17 01/16/17 13:30 13:57 13:59 14:00 Pulse 83 101 Resp 16 20 B/P 147/82 122/82 O2 Delivery Room Air Room Air 01/16/17 01/16/17 01/16/17 01/16/17 14:05 14:30 15:00 15:24 Temp 98.5 98.5 Pulse 97 94 93 Resp 16 18 16 16 B/P 138/78 157/77 149/69 136/84 Pulse Ox 93 O2 Delivery Room Air Room Air Room Air Room Air 01/16/17 01/16/17 01/16/17 01/16/17 16:00 16:43 19:02 19:34 Temp 97.7 97.7 Pulse 93 94 81 Resp 16 16 18 B/P 149/74 132/87 129/75 Pulse Ox 96 O2 Delivery Room Air Room Air Room Air Room Air O2 Flow Rate 96.0 01/16/17 01/16/17 01/16/17 01/17/17 19:54 22:43 23:00 03:33 Temp 98.6 98.4 98.6 98.4 Pulse 78 72 64 Resp 18 B/P 121/80 132/76 148/90 Pulse Ox 97 97 O2 Delivery Room Air Room Air Room Air 01/17/17 01/17/17 01/17/17 01/17/17 03:35 06:43 07:55 08:00 Temp 98.8 98.8 Pulse 62 Resp 18 16 16 B/P 139/70 Pulse Ox 97 99 O2 Delivery Room Air Room Air Room Air Room Air 01/17/17 01/17/17 01/17/17 09:00 09:25 09:26 Pulse 78 78 Resp 16 B/P 134/76 134/76 O2 Delivery Room Air Intake and Output 01/16/17 01/16/17 01/17/17 15:00 23:00 07:00 Intake Total 1050 ml 1080 ml 600 ml Output Total 75 ml 200 ml 700 ml Balance 975 ml 880 ml -100 ml UMM BEASLEY APRN Jan 17, 2017 13:27
--- NOTE | 2017-01-17 14:03 | PATHOLOGY ---
PATHOLOGY REPORT * * * * * * * * FINAL DIAGNOSIS: "Thoracic decompression," removal: - Fragments of fibrocartilage with degenerative changes. - Fragments of bone with focal trilineage hematopoiesis. (SKM:; d/t: 01/17/17) REPORT ELECTRONICALLY SIGNED BY: Allyn Lizama M.D. DATE/TIME: 01/17/2017 14:02 * * * * * * * * GROSS PATHOLOGY: Received in formalin labeled "Amirah Osborne and thoracic decompression," are several pieces of red-sy to white-sy, rubbery, gritty, and glistening fibrous tissue admixed with possible bone measuring 7.4 x 4.3 x 1.2 cm in aggregate dimensions. The tissue is submitted representatively in cassette A1, following decalcification. (TTL; 01/16/2017) INITIAL CPT CODE(S): A; 71748, 47616 Professional services performed [place] [facility] [place] [address] Technical services performed by [facility] at [address] [place] [address]. SPECIMEN(S) RECEIVED: A.Thoracic decompression CLINICAL HISTORY: Stenosis PATIENT: AMIRAH OSBORNE /AGE: 2 1945 (Age: 71) PATIENT #: [id number] ALT CASE #: SPECIMEN COLLECTION DATE: 01/16/2017 SPECIMEN RECEIVED DATE: 01/16/2017 [facility] - [address] [place] [address] - PHONE: [phone] * * * END OF REPORT * * *
--- NOTE | 2017-01-17 15:41 | PDOC ---
PROGRESS NOTES Assessment Assessment Left LE weakness x 3 months, worse for 1 week. Left leg pain. 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 Degenerative spine and disc disease. DM HTN HLD Diverticulosis. Obesity Falls. No evidence of acute CVA this time. RECOMMENDATIONS/PLAN: Continue Neurontin 300 mg tid. Decadron for short term use; duration per Neurosurgery. NS consulted and T11-12 laminectomy surgery performed on 01/16/17. Treat underlying medical diseases. OT/PT. Discussed with her at bedside on 01/15. L-spine MRI, performed. HISTORY OF THE PRESENT ILLNESS: 71-y-old AA female patient with above medical diseases developed symptoms of weakness in her left LE for about 1 week. But on further questioning, she said she has been having left LE weakness since 09/2016 and her weakness got worse for about 1 weeks before she came to [facility] this time. Her weakness progress and she was eventually unable to mobile. She also has symptoms of pain in lateral aspect of her left LE from hip down to knee. No symptoms of urinary or bowel dysfunction. Her UE and cranial nerves were not involved. She stated she is doing fine on 01/17. PAST MEDICAL HISTORY: Please see above. PAST SURGERY HISTORY: Hysterectomy, Knee surgery ALLERGY: Reviewed. MEDICATIONS: Refer to [facility] FAMILY HISTORY: Her mother had colon cancer. Her father had lung cancer. SOCIAL HISTORY: Lives at home. Denies current smoking, drinking, and illicit drug use. REVIEW OF SYSTEMS: Constitutional: No malnutrition, weight loss, cachexia. Head: No traumatic brain or head injury. Skin: No edema, or rash. Ear: No infection. Eyes: No vision loss or color blindness. Nose: No bleeding or purulent discharges. Hearing: No hearing decrease. Neck: Pain. Breast: No history of cancer, masses,or discharges. Cardiac: HTN, HLD. Pulmonary: No COPD. GI: No GI ulcer, GI bleeding. Urinary/genital: UTI. Endocrinologic: Diabetes Mellitus, obesity. Skeletomuscular: No muscular atrophy, deformity.. Neurological: see HP. Psychiatric: Denies drug use/abuse. Otherwise, not [id number] review of systems. PHYSICAL EXAMINATION: General appearance is in subacute distress. HEENT: Normocephalic and nontraumatic. Eyes, nose, ears, and throat are unremarkable. Neck is supple. No lymphadenopathy. No bruits are heard over the carotid artery. No crepitus. Cardiovascular: S1, S2, regular rate and rhythm. Pulmonary: Clear to auscultation bilaterally. Abdomen: Bowel sounds are positive. Abdomen is soft, nontender, and nondistended. Extremities: No rash, lesions, or edema. Restriction of range of motion in left LE. NEUROLOGICAL EXAMINATION: Alert Sitting in chair. Oriented to time, place and person. PERRL. EOMI. CN: no focal findings. Muscle tone: within normal. Muscle strength: 5 right UE and LE and left UE, 3+ left LE. DTR: 2- UE, 1 at knee. Plantar reflex: Flexor response bilaterally Gait: Able to walk with a walker this time. Sensory exam: No acute findings. No obvious cerebellar signs elicited. F-T-N test fine. Objective Objective Vital Signs Date Time Temp Pulse Resp B/P Pulse Ox O2 Delivery O2 Flow Rate FiO2 01/17/17 15:08 18 Room Air 01/17/17 09:26 78 134/76 01/17/17 06:43 98.8 99 98.8 01/16/17 16:43 96.0 Intake and Output 01/17/17 07:00 Intake Total 2730 ml Output Total 975 ml Balance 1755 ml Intake Oral 1680 ml IV Total 1050 ml Output Urine Total 900 ml Estimated Blood Loss 75 ml # Voids 2 Vitals Signs Vitals VS - Last 72 Hours, by Label Date Time Temp Pulse Resp B/P Pulse Ox O2 Delivery O2 Flow Rate FiO2 01/17/17 15:08 18 Room Air 01/17/17 14:04 14 Room Air 01/17/17 09:26 78 134/76 01/17/17 09:25 78 134/76 01/17/17 08:00 78 134/76 Room Air 01/17/17 08:00 Room Air 01/17/17 07:55 16 Room Air 01/17/17 06:43 98.8 62 16 139/70 99 Room Air 98.8 01/17/17 03:35 18 97 Room Air 01/17/17 03:33 98.4 64 18 148/90 97 Room Air 98.4 01/16/17 23:00 98.6 72 18 132/76 97 Room Air 98.6 01/16/17 22:43 Room Air 01/16/17 19:54 78 121/80 01/16/17 19:34 Room Air 01/16/17 19:02 97.7 81 18 129/75 96 Room Air 97.7 01/16/17 16:43 94 16 132/87 Room Air 96.0 01/16/17 16:00 93 16 149/74 Room Air 01/16/17 15:24 16 136/84 Room Air 01/16/17 15:00 93 16 149/69 Room Air 01/16/17 14:30 94 18 157/77 Room Air 01/16/17 14:05 98.5 97 16 138/78 93 Room Air 98.5 01/16/17 14:00 Room Air 01/16/17 13:59 20 01/16/17 13:57 101 122/82 01/16/17 13:30 83 16 147/82 Room Air 01/16/17 13:15 98.5 85 16 158/92 93 Room Air 98.5 01/16/17 13:01 15 92 Room Air 01/16/17 12:51 97.5 94 15 127/61 93 97.5 01/16/17 12:39 15 93 Room Air 01/16/17 12:36 97.5 94 16 141/61 94 97.5 01/16/17 12:21 97.5 96 13 159/66 100 Simple Mask 10 97.5 01/16/17 12:06 Room Air 01/16/17 12:06 97.5 103 13 179/80 100 Simple Mask 10 97.5 01/16/17 07:50 98.1 66 16 175/81 97 Room Air 98.1 01/16/17 07:00 97.9 64 18 154/69 97 Room Air 97.9 Laboratory Laboratory Laboratory Tests Test 01/16/17 16:10 01/16/17 21:58 01/17/17 04:50 01/17/17 06:54 Glucose (Fingerstick) 305mg/dL (70-99) 225mg/dL (70-99) 209mg/dL (70-99) White Blood Count 16.4x10^3/uL (4.0-11.0) Red Blood Count 4.76x10^6/uL (3.50-5.40) Hemoglobin 10.5g/dL (12.0-15.5) Hematocrit 33.3% (36.0-47.0) Mean Corpuscular Volume 70fL (79-100) Mean Corpuscular Hemoglobin 22pg (25-35) Mean Corpuscular Hemoglobin Concent 32g/dL (31-37) Red Cell Distribution Width 15.6% (11.5-14.5) Platelet Count 235x10^3/uL (140-400) Neutrophils (%) (Auto) 87% (31-73) Lymphocytes (%) (Auto) 6% (24-48) Monocytes (%) (Auto) 6% (0-9) Eosinophils (%) (Auto) 0% (0-3) Basophils (%) (Auto) 1% (0-3) Neutrophils # (Auto) 14.3x10^3uL (1.8-7.7) Lymphocytes # (Auto) 1.0x10^3/uL (1.0-4.8) Monocytes # (Auto) 1.0x10^3/uL (0.0-1.1) Eosinophils # (Auto) 0.0x10^3/uL (0.0-0.7) Basophils # (Auto) 0.1x10^3/uL (0.0-0.2) Sodium Level 144mmol/L (136-145) Potassium Level 4.3mmol/L (3.5-5.1) Chloride Level 108mmol/L (98-107) Carbon Dioxide Level 25mmol/L (21-32) Anion Gap 11 (6-14) Blood Urea Nitrogen 16mg/dL (7-20) Creatinine 0.7mg/dL (0.6-1.0) Estimated GFR (Cockcroft-Gault) 100.1 Glucose Level 252mg/dL (70-99) Calcium Level 9.0mg/dL (8.5-10.1) Magnesium Level 1.9mg/dL (1.8-2.4) Test 01/17/17 11:25 Glucose (Fingerstick) 221mg/dL (70-99) Medication Medications Current Medications Famotidine (Pepcid) 20 mg STK-MED ONCE .ROUTE ; Start 01/16/17 at 19:05; Stop at 19:06; Status DC Famotidine (Pepcid) 20 mg STK-MED ONCE .ROUTE ; Start 01/17/17 at 07:50; Stop at 07:51; Status DC Metformin HCl (Glucophage) 850 mg BIDWMEALS PO ; Start 01/17/17 at 09:00; Stop 01/17/17 at 09:10; Status DC Metoprolol Tartrate (Lopressor) 100 mg BID PO Last administered on 01/17/17t 09 :26; Start 01/17/17 at 09:00 Comment Review of Relevant I have reviewed the following items alberto (where applicable) has been applied. GLORIA WERNER MD Jan 17, 2017 15:41
[2017-01-17 16:00] VITALS: BP 130/70
--- NOTE | 2017-01-20 09:56 | PDOC3 ---
IM DISCHARGE SUMMARY Date of Admission Date of Admission Date of Admission: Jan 14, 2017 at 07:35 Date of Discharge Date of Discharge 01/17/17 Primary Diagnosis Primary Diagnosis Assessment IMPRESSION: 1. L hip pain post fall on home property 2. L lower leg instability with ambulation secondary to #8 3. malignant HTN 4. 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 diverticulosis 7. hypokalemia 8. High-grade canal stenosis at T11-T12 with cord flattening and cord hyperintensity POA s/p T11-12 laminectomy Problems: Consults Consults Vincenzo Wei MD Procedures Procedures T11-12 laminectomy 01/16/17 Labs Labs Laboratory Tests Test 01/17/17 11:25 Glucose (Fingerstick) 221mg/dL (70-99) Brief hospital course Brief hospital course This 71 year old female who presented with LLE weakness and instability was admitted. The following is a summary of his treatment: LLE weakness/instability neuro consult Dr. 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 Cord hyperintensity may represent edema or myelomalacia. d/w Dr. Price. Neurosurgery consulted, surgery later today. Obtain cardiology pre op clearance To surgery-d/w BRENDA Patino reviewed. Surgery ok if anesthesia agrees. T11-12 laminectomy POD 1 malignant HTN resume home meds Hydralazine 10mg IV prn SBP >180 HTN + DM =begin ASA 81mg daily SBP 160s-begin Lisinopril 10mg daily 08/17 Accel HTN-BP 175/81-assess post surgery improved Home metoprolol at 100mg bid (was 200mg bid) --with addition Lisinopril 10mg BP improved. Continue for home dosing L Hip pain post falll XR L hip negative Dr. Price consult L knee instability- hypokalemia Admit K 3.4 01/17 4.3 01/15 Mg 1.6 replace Mg SO4 2 gm IV 01/17 1.9 KCL 20meq 01/14 recheck 01/15 DM II with hyperglycemia/neuropathy-steroid induced hyperglycemia FSBS/SSI low intensity continue metformin BS [id number] Start Metformin 850mg bid May need SSI for discharge hyperlipidemia on statin leukocytosis Admit WBC 7.1 01/16 16.4 steroid induced leukocytosis DVT/GI prophylaxis SCD/COLLEEN Pepcid For more details regarding the past history, family history, social history, surgical history and other details, please refer to History and Physical. She is being discharged home and will be seen in the office. Please refer to the discharge orders. Medications Medications reviewed and reconciled for discharge. Allergy Allergies Coded Allergies Type Severity Reaction Last Updated Verified No Known Drug Allergies 07/25/15 No Follow up in 5 days. DISPOSITION: Home Comments Discharge Management - 35 minutes. For other details please refer to discharge instructions BRENDA RANDOLPH [employer] Jan 20, 2017 09:56
--- NOTE | 2017-01-22 15:39 | OP ---
DATE OF SURGERY: 01/16/2017 PREOPERATIVE DIAGNOSES: Thoracic stenosis with myelopathy T11-T12. POSTOPERATIVE DIAGNOSES: Thoracic stenosis with myelopathy T11-T12. OPERATION PERFORMED: Thoracic laminectomy T11-T12. The operation was done with multimodality electrophysiologic monitoring including motor evoked potentials, somatosensory evoked potentials, additionally sphincter tone was monitored. EMGs were performed. The operation also included microscopic dissection, fluoroscopy. CRAFT WORKER: CATRACHO Rubio, assisted with the surgery, she assisted with the exposure, the decompression as well as the closure. OPERATIVE INDICATIONS: The patient is a very pleasant 71-year-old woman who has over the last 2 months developed problems with weakness in her lower extremities and falling. She relates that her left leg is more involved than the right. She says that her legs tend to give out and she falls. On imaging studies, she was found to have severe stenosis at T11-T12, which is primarily due to hypertrophic thickened facets and ligamentum flavum combined with posterior disk bulging. I recommended a thoracic laminectomy to help her with the problem. I spoke with her about the surgery and the risks involved. She understood the surgery as well as the risks and wished to go ahead. DESCRIPTION OF PROCEDURE: Following general endotracheal anesthesia, the patient was positioned prone on the Luisito table. Her thoracolumbar region was prepped and draped in standard fashion. COLLEEN hose and AV impulse boots were applied for DVT prophylaxis. A microscope was draped, fluoroscopy was draped and brought into the field. Monitoring was established. Ancef 2 g was given less than 1 hour prior to initiation of the surgery. Using fluoroscopic guidance, working superiorly, an incision was made over the T11-T12 interspace. I dissected down through the skin and subcutaneous tissue and placed self-retaining retractors. I brought in the microscope and the remainder of surgery done with the microscope using microscopic technique. I used the Leksell and Adson rongeurs to trim the spinous processes of T11 and T12. I then brought in the high speed air drill with a microscope using microscopic technique and I drilled first on the left side and then crossed to the right side, laminectomy exposing the very thickened ligamentum flavum. I worked down and exposed the facet joint, first on the left and drilled this to a very thin eggshell like consistency and then with the 2.5 and 2 mm Kerrison's trimmed bony facet away working superiorly and inferiorly to fully decompress the region on the left side peeled away very thickened ligamentum flavum and worked first across the left and then again with the high speed air drill and gently using the Kerrisons worked across to the right side and fully decompressed the right side as well. The dura was markedly compressed and was able to come back nicely with the decompression. I used fluoroscopic images to confirm the extent of the surgery. The motor evoked potentials improved dramatically as well as the amplitude of the somatosensory evoked potentials with the decompression. I did use bone wax for any bone bleeding as well as the bipolar cautery for any epidural veins. Following this, I explored carefully, the disk was posteriorly bulging slightly, but heavily calcified and no diskectomy was warranted. I irrigated and then closed the wound in layers after I removed the retractors and obtained hemostasis in the muscle. I did lay small amounts of Gelfoam in each lateral gutter prior to closure. The hemostasis was excellent. The wound was closed in layers with absorbable suture and the skin was closed with skin ok. The surgery went very well and the patient awakened and eventually taken to recovery room in excellent condition. I was quite pleased with the surgery. CHRISTIAN RODRIGUEZ MD DR: MILLA/nataly JOB#: [id number] / [id number]
== END 2017-01-17 16:05 | disposition home or self-care (01) | DRG 520 ==
LOC: ER 06:21 → 6 SOUTH 07:35 → 4 SOUTHEST 01-16 13:14
PROVIDERS: ADMIT Internal Medicine; ATTEND Internal Medicine
PROC: 4A1104G Monitoring of Peripheral Nervous Electrical Activity, Intraoperative, Open Approach (ICD-10-PCS; 2017-01-16)
PROC: 00NX0ZZ Release Thoracic Spinal Cord, Open Approach (ICD-10-PCS; principal; 2017-01-16 08:30)
DX: M48.04 Spinal stenosis, thoracic region (principal); M17.12 Unilateral primary osteoarthritis, left knee; I10 Essential (primary) hypertension; K57.90 Diverticulosis of intestine, part unspecified, without perforation or abscess without bleeding; E87.6 Hypokalemia; E11.42 Type 2 diabetes mellitus with diabetic polyneuropathy; E11.65 Type 2 diabetes mellitus with hyperglycemia; E66.9 Obesity, unspecified; M51.16 Intervertebral disc disorders with radiculopathy, lumbar region; Z96.651 Presence of right artificial knee joint; W18.39XA Other fall on same level, initial encounter; E78.5 Hyperlipidemia, unspecified; Z79.899 Other long term (current) drug therapy; Z80.0 Family history of malignant neoplasm of digestive organs; Z80.1 Family history of malignant neoplasm of trachea, bronchus and lung; Z82.49 Family history of ischemic heart disease and other diseases of the circulatory system; Z90.710 Acquired absence of both cervix and uterus; Y93.89 Activity, other specified; Y92.89 Other specified places as the place of occurrence of the external cause; Y99.8 Other external cause status; Z68.35 Body mass index [BMI] 35.0-35.9, adult
CPT/HCPCS: 36415; 70450; 70551; 71010; 72148; 73502; 76000; 80048; 80053; 81001; 82947; 83735; 84484; 85007; 85027; 85610; 85730; 88304; 88311; 93005; 93306; J0330; J0360; J0690; J1100; J1815; J1885; J2405; J2704; J3010; J3490; J7030; J7060; J7120; 97110; 97116; 97530; 99285-25